=== PATIENT | female | born 1945 | race Caucasian/White ===

== ENCOUNTER 2018-05-15 19:05 | Inpatient (IN) | payer OTHER ==
[~2018-05-15] VITALS: Ht 170.2 cm; Wt 102.1 kg
[~2018-05-15 19:05] MED LIST: ALPR.25 PO; BENHYD1012; BENHYD1012 PO; DICL75ER; DILT240 PO; DULO60 PO; ESOM20 PO; ESTR2; ESTRTP PV; ESTRTP VAG; ETAN50I; ETAN50I SC; FLUO10 PO; FLUO20; GABA100 PO; HYDACE10A PO; HYDACE5; HYDACE5 PO; HYDSUL200; LANS30EC PO; LORA.5 PO; MELO7.5 PO; METO50ER PO; METTREX2.5; Mirapex0.25 MG PO; NITR100 PO; NORT25; ONDA4ODT MM; OXYB5ER PO; OXYC10ER PO; PILO5 PO; POTA10T; PRED5; PROM25 PO; RABE20; RHEUMATREX; TOLT4 PO; TRAZ150T57 PO; TRAZ50
[2018-05-15 19:45] LABS: BASOPHILS ABSOLUTE AUTO 0.04 K/mm3 (0.00-0.23); BASOPHILS PERCENT AUTO 1 % (0-2); EOSINOPHILS ABSOLUTE AUTO 0.44 K/mm3 (0.00-0.68); EOSINOPHILS PERCENT AUTO 7 % (0-6); Hematocrit 40.8 % (33.0-51.0); Hemoglobin 13.5 g/dL (11.5-16.0); IMMATURE GRAN ABSOLUTE AUTO 0.03 K/mm3 (0.00-0.10); IMMATURE GRAN PERCENT AUTO 0 % (0-1); LYMPHOCYTES ABSOLUTE AUTO 2.51 K/mm3 (0.84-5.20); LYMPHOCYTES PERCENT AUTO 37 % (21-46); MONOCYTES ABSOLUTE AUTO 0.91 K/mm3 (0.16-1.47); MONOCYTES PERCENT AUTO 13 % (4-13); Mean Corpuscular HGB 31.7 pg (26.0-34.0); Mean Corpuscular HGB Conc 33.1 g/dL (31.5-36.5); Mean Corpuscular Volume 96 fL (80-100); Mean Platelet Volume 10.5 fL (9.1-12.4); NEUTROPHILS ABSOLUTE AUTO 2.89 K/mm3 (1.96-9.15); NEUTROPHILS PERCENT AUTO 42 % (41-73); Platelet Count 212 K/mm3 (150-400); RDW Coefficient Variation 13.4 % (11.7-14.2); RDW Standard Deviation 47.4 fL (35.1-46.3); Red Blood Cell Count 4.26 M/mm3 (3.80-5.20); White Blood Cell Count 6.82 K/mm3 (4.00-11.30)
[2018-05-15 19:59] LABS: Alanine Aminotransfer (ALT/SGP 50 U/L (12-78); Albumin, Blood 3.4 g/dL (3.4-5.0); Albumin/Globulin Ratio 1.1 (0.8-1.8); Alk Phos 83 U/L (50-136); Anion Gap 8 mmol/L (6-16); Aspartate Aminotrans (AST/SGOT 37 U/L (12-37); Bilirubin, Total 0.3 mg/dL (0.1-1.0); Blood Urea Nitrogen 21 mg/dL (8-24); Bun/Creatinine Ratio 31.2 (12.0-20.0); CO2, Blood 31 mmol/L (21-32); Calcium, Blood 8.6 mg/dL (8.5-10.1); Chloride, Blood 103 mmol/L (98-108); Creatinine, Blood 0.67 mg/dL (0.40-1.00); Globulin, Blood 3.1 g/dL (2.2-4.0); Glomerular Filtration Rate >60 (60-); Glucose, Blood 113 mg/dL (70-99); Sodium, Blood 142 mmol/L (136-145); Total Protein, Blood 6.5 g/dL (6.4-8.2)
[2018-05-15 22:29] LABS: Source, Urine Catheter
[2018-05-15 22:38] LABS: Bilirubin, Urine Neg (Neg); Blood, Urine Neg (Neg); Glucose Qualitative, Urine Neg (Neg); Ketones, Urine Neg (Neg); Leukocyte Esterase, Urine Neg (Neg); Nitrite, Urine Neg (Neg); Protein, Urine Neg (Neg); Specific Gravity, Urine 1.015 (1.003-1.022); Urobilinogen, Urine NORM (Normal)
[2018-05-15 22:39] LABS: Appearance, Urine Clear (Clear); Color, Urine Yellow (P-Yellow)
[2018-05-16 05:59] LABS: Alanine Aminotransfer (ALT/SGP 45 U/L (12-78); Albumin, Blood 3.1 g/dL (3.4-5.0); Albumin/Globulin Ratio 1.1 (0.8-1.8); Alk Phos 74 U/L (50-136); Anion Gap 7 mmol/L (6-16); Aspartate Aminotrans (AST/SGOT 33 U/L (12-37); Bilirubin, Total 0.5 mg/dL (0.1-1.0); Blood Urea Nitrogen 17 mg/dL (8-24); Bun/Creatinine Ratio 30.5 (12.0-20.0); CO2, Blood 31 mmol/L (21-32); Calcium, Blood 8.3 mg/dL (8.5-10.1); Chloride, Blood 103 mmol/L (98-108); Creatinine, Blood 0.56 mg/dL (0.40-1.00); Globulin, Blood 2.9 g/dL (2.2-4.0); Glomerular Filtration Rate >60 (60-); Glucose, Blood 104 mg/dL (70-99); Potassium, Blood 3.8 mmol/L (3.5-5.5); Sodium, Blood 141 mmol/L (136-145)
[2018-05-17 03:55] LABS: BASOPHILS ABSOLUTE AUTO 0.01 K/mm3 (0.00-0.23); BASOPHILS PERCENT AUTO 0 % (0-2); EOSINOPHILS PERCENT AUTO 0 % (0-6); Hematocrit 30.1 % (33.0-51.0); Hemoglobin 9.9 g/dL (11.5-16.0); IMMATURE GRAN ABSOLUTE AUTO 0.03 K/mm3 (0.00-0.10); IMMATURE GRAN PERCENT AUTO 0 % (0-1); LYMPHOCYTES ABSOLUTE AUTO 0.83 K/mm3 (0.84-5.20); LYMPHOCYTES PERCENT AUTO 9 % (21-46); MONOCYTES ABSOLUTE AUTO 0.52 K/mm3 (0.16-1.47); MONOCYTES PERCENT AUTO 5 % (4-13); Mean Corpuscular HGB 32.2 pg (26.0-34.0); Mean Corpuscular HGB Conc 32.9 g/dL (31.5-36.5); Mean Corpuscular Volume 98 fL (80-100); Mean Platelet Volume 10.7 fL (9.1-12.4); NEUTROPHILS PERCENT AUTO 86 % (41-73); Platelet Count 166 K/mm3 (150-400); RDW Coefficient Variation 13.6 % (11.7-14.2); RDW Standard Deviation 48.6 fL (35.1-46.3); Red Blood Cell Count 3.07 M/mm3 (3.80-5.20); White Blood Cell Count 9.59 K/mm3 (4.00-11.30)
[2018-05-17 04:09] LABS: Anion Gap 6 mmol/L (6-16); Blood Urea Nitrogen 15 mg/dL (8-24); Bun/Creatinine Ratio 27.6 (12.0-20.0); CO2, Blood 29 mmol/L (21-32); Calcium, Blood 7.8 mg/dL (8.5-10.1); Chloride, Blood 106 mmol/L (98-108); Creatinine, Blood 0.54 mg/dL (0.40-1.00); Glomerular Filtration Rate >60 (60-); Glucose, Blood 159 mg/dL (70-99); Magnesium, Blood 1.9 mg/dL (1.6-2.4); Potassium, Blood 4.7 mmol/L (3.5-5.5); Sodium, Blood 141 mmol/L (136-145)
[2018-05-18 03:52] LABS: BASOPHILS PERCENT AUTO 0 % (0-2); EOSINOPHILS PERCENT AUTO 0 % (0-6); Hematocrit 28.6 % (33.0-51.0); Hemoglobin 9.1 g/dL (11.5-16.0); IMMATURE GRAN ABSOLUTE AUTO 0.07 K/mm3 (0.00-0.10); IMMATURE GRAN PERCENT AUTO 1 % (0-1); LYMPHOCYTES ABSOLUTE AUTO 1.32 K/mm3 (0.84-5.20); LYMPHOCYTES PERCENT AUTO 10 % (21-46); MONOCYTES ABSOLUTE AUTO 1.19 K/mm3 (0.16-1.47); MONOCYTES PERCENT AUTO 9 % (4-13); Mean Corpuscular HGB 31.3 pg (26.0-34.0); Mean Corpuscular HGB Conc 31.8 g/dL (31.5-36.5); Mean Corpuscular Volume 98 fL (80-100); NEUTROPHILS ABSOLUTE AUTO 10.86 K/mm3 (1.96-9.15); NEUTROPHILS PERCENT AUTO 81 % (41-73); Platelet Count 187 K/mm3 (150-400); RDW Coefficient Variation 13.5 % (11.7-14.2); RDW Standard Deviation 47.9 fL (35.1-46.3); Red Blood Cell Count 2.91 M/mm3 (3.80-5.20); White Blood Cell Count 13.44 K/mm3 (4.00-11.30)
== END 2018-05-18 18:28 | DRG 482 ==
LOC: ER 19:05 → SURS 22:06
PROVIDERS: Emergency Medicine; Family Medicine; Internal Medicine; Orthopaedic Surgery
PROC: 0QS604Z Reposition Right Upper Femur with Internal Fixation Device, Open Approach (ICD-10-PCS; principal; 2018-05-17)
DX: S72.141A Displaced intertrochanteric fracture of right femur, initial encounter for closed fracture (principal); Z87.440 Personal history of urinary (tract) infections; I10 Essential (primary) hypertension; M06.9 Rheumatoid arthritis, unspecified; W01.0XXA Fall on same level from slipping, tripping and stumbling without subsequent striking against object, initial encounter; E78.5 Hyperlipidemia, unspecified; F32.9 Major depressive disorder, single episode, unspecified; G89.29 Other chronic pain; K21.9 Gastro-esophageal reflux disease without esophagitis; M35.00 Sjogren syndrome, unspecified; S80.01XA Contusion of right knee, initial encounter; M81.0 Age-related osteoporosis without current pathological fracture; R32 Unspecified urinary incontinence; K58.9 Irritable bowel syndrome, unspecified
CPT/HCPCS: 36415; 51702; 71045; 72192; 73502; 73560-RT; 73700; 80048; 80053; 81003; 83735; 85025; 93005; 93010; 94762; 96374; 97110; 97161; 97166; 97530; 97535; 99285-25; C1713; C1769; G8978; G8979; G8987; G8988; J0690; J1100; J1650; J2001; J2250; J2405; J3010; J3480; J7030

== ENCOUNTER 2018-05-27 00:13 | Emergency (ER) | payer OTHER ==
[~2018-05-27] VITALS: Ht 170.2 cm; Wt 113.4 kg
[2018-05-27] MEDS ORDERED: DULO60 PO (00:28)
[2018-05-27] MEDS ORDERED: ETAN50I UD (00:28)
[2018-05-27] MEDS ORDERED: DILT120 PO (00:28)
[2018-05-27] MEDS ORDERED: MELO7.5 PO (00:29)
[2018-05-27] MEDS ORDERED: ESTR2 PO (00:29)
[2018-05-27] MEDS ORDERED: ENOX40I SC (00:29)
[2018-05-27] MEDS ORDERED: GAVILAX17 GM PO (00:29)
[2018-05-27] MEDS ORDERED: PRAM.5 PO (00:30)
[2018-05-27] MEDS ORDERED: Norco 10-325 T1 EACH PO (00:30)
[2018-05-27] MEDS ORDERED: NORT25 PO (00:31)
[2018-05-27] MEDS ORDERED: PILO5 PO (00:31)
[2018-05-27] MEDS ORDERED: LANS30EC PO (00:31)
[2018-05-27] MEDS ORDERED: METO50ER PO (00:32)
[2018-05-27] MEDS ORDERED: TRAZ150T57 PO (00:33)
[2018-05-27] MEDS ORDERED: TUBERSOL5 TUB UNIT ID (00:33)
== END 2018-05-27 01:22 | disposition home or self-care (01) ==
LOC: ER 00:13
DX: G89.29 Other chronic pain (principal); M25.551 Pain in right hip; Z91.048 Other nonmedicinal substance allergy status; Z88.8 Allergy status to other drugs, medicaments and biological substances; Z79.899 Other long term (current) drug therapy; I10 Essential (primary) hypertension
CPT/HCPCS: 99284

== ENCOUNTER → 2018-10-14 | Outpatient (CLI) | payer OTHER ==
[~2018-10-14] MED LIST changes: +DILT120 PO; +ENOX40I SC; +ESTR2 PO; +ETAN50I UD; +GAVILAX17 GM PO; +NORT25 PO; +Norco 10-325 T1 EACH PO; +PRAM.5 PO; +TUBERSOL5 TUB UNIT ID
== END | disposition home or self-care (01) ==
LOC: LAB EV 18:20 → LAB SHORT 18:20
DX: R30.0 Dysuria (principal)
CPT/HCPCS: 87077; 87086; 87186

== ENCOUNTER 2018-12-25 07:51 | Emergency (ER) | payer OTHER ==
[~2018-12-25] VITALS: Ht 170.2 cm; Wt 111.1 kg
[2018-12-25 08:17] LABS: BASOPHILS ABSOLUTE AUTO 0.03 K/mm3 (0.00-0.23); BASOPHILS PERCENT AUTO 1 % (0-2); EOSINOPHILS ABSOLUTE AUTO 0.18 K/mm3 (0.00-0.68); EOSINOPHILS PERCENT AUTO 3 % (0-6); Hematocrit 34.3 % (33.0-51.0); Hemoglobin 10.4 g/dL (11.5-16.0); IMMATURE GRAN ABSOLUTE AUTO 0.02 K/mm3 (0.00-0.10); IMMATURE GRAN PERCENT AUTO 0 % (0-1); LYMPHOCYTES ABSOLUTE AUTO 1.26 K/mm3 (0.84-5.20); LYMPHOCYTES PERCENT AUTO 21 % (21-46); MONOCYTES ABSOLUTE AUTO 0.81 K/mm3 (0.16-1.47); MONOCYTES PERCENT AUTO 14 % (4-13); Mean Corpuscular HGB 26.5 pg (26.0-34.0); Mean Corpuscular HGB Conc 30.3 g/dL (31.5-36.5); Mean Corpuscular Volume 88 fL (80-100); Mean Platelet Volume 9.8 fL (9.1-12.4); NEUTROPHILS ABSOLUTE AUTO 3.65 K/mm3 (1.96-9.15); NEUTROPHILS PERCENT AUTO 61 % (41-73); Platelet Count 297 K/mm3 (150-400); RDW Coefficient Variation 17.1 % (11.7-14.2); RDW Standard Deviation 53.7 fL (35.1-46.3); Red Blood Cell Count 3.92 M/mm3 (3.80-5.20); White Blood Cell Count 5.95 K/mm3 (4.00-11.30)
[2018-12-25] MEDS ORDERED: Lasix40 MG PO (08:35)
[2018-12-25 08:38] LABS: Alanine Aminotransfer (ALT/SGP 54 U/L (12-78); Albumin, Blood 3.6 g/dL (3.4-5.0); Albumin/Globulin Ratio 1.1 (0.8-1.8); Alk Phos 62 U/L (50-136); Anion Gap 8 mmol/L (6-16); Aspartate Aminotrans (AST/SGOT 69 U/L (12-37); Bilirubin, Total 0.5 mg/dL (0.1-1.0); Blood Urea Nitrogen 15 mg/dL (8-24); Bun/Creatinine Ratio 29.3 (12.0-20.0); CO2, Blood 32 mmol/L (21-32); Calcium, Blood 9.5 mg/dL (8.5-10.1); Chloride, Blood 100 mmol/L (98-108); Creatinine, Blood 0.51 mg/dL (0.40-1.00); Globulin, Blood 3.4 g/dL (2.2-4.0); Glomerular Filtration Rate >60 (60-); Glucose, Blood 117 mg/dL (70-99); Potassium, Blood 3.2 mmol/L (3.5-5.5); Sodium, Blood 140 mmol/L (136-145)
[2018-12-25] MEDS ORDERED: NORT10S PO (08:39)
[2018-12-25] MEDS ORDERED: Voltaren100 GM TOP (08:40)
[2018-12-25] MEDS ORDERED: DULO30 PO (08:40)
[2018-12-25] MEDS ORDERED: MELO7.5 PO (08:41)
[2018-12-25] MEDS ORDERED: BENHYD1012 (08:41)
[2018-12-25] MEDS ORDERED: NITR100CA PO ×2 (08:41→08:44)
[2018-12-25] MEDS ORDERED: METO50ER PO ×2 (08:42→08:46)
[2018-12-25] MEDS ORDERED: MICROZIDE12.5 M1 PO (08:42)
[2018-12-25] MEDS ORDERED: TRAZ150T57 (08:42)
[2018-12-25] MEDS ORDERED: Norco 10-325 T1 EACH PO (08:43)
[2018-12-25] MEDS ORDERED: ABAT250V (08:43)
[2018-12-25] MEDS ORDERED: PILO5 PO (08:43)
[2018-12-25] MEDS ORDERED: ETAN50I (08:43)
[2018-12-25] MEDS ORDERED: METTREX2.5 PO (08:44)
[2018-12-25] MEDS ORDERED: FOLI1 PO (08:44)
[2018-12-25] MEDS ORDERED: PRAM.125 PO (08:45)
[2018-12-25] MEDS ORDERED: PRAM.5 PO (08:45)
[2018-12-25] MEDS ORDERED: Bentyl10 MG (08:46)
[2018-12-25] MEDS ORDERED: LANS30EC PO (08:47)
[2018-12-25 09:16] LABS: Source, Urine Clean Catch
[2018-12-25 09:21] LABS: Bilirubin, Urine Neg (Neg); Blood, Urine Neg (Neg); Glucose Qualitative, Urine Neg (Neg); Ketones, Urine 1+ (Neg); Leukocyte Esterase, Urine 1+ (Neg); Nitrite, Urine Neg (Neg); Protein, Urine Neg (Neg); Specific Gravity, Urine 1.015 (1.003-1.022); Urobilinogen, Urine NORM (Normal)
[2018-12-25 09:28] LABS: Appearance, Urine Hazy (Clear); Color, Urine Yellow (P-Yellow)
[2018-12-25 09:29] LABS: Bacteria Rare /hpf; Red Blood Cells, Urine Not Seen /hpf (0-2); Squamous Epithelial Cells Few /hpf (Few)
[2018-12-25] MEDS ORDERED: Percocet 5-3251 EACH PO (09:37)
== END 2018-12-25 10:08 | disposition home or self-care (01) ==
LOC: ER 07:51
PROVIDERS: Emergency Medicine
DX: R10.12 Left upper quadrant pain (principal); I10 Essential (primary) hypertension; E78.5 Hyperlipidemia, unspecified; K21.9 Gastro-esophageal reflux disease without esophagitis
CPT/HCPCS: 36415; 74176; 80053; 81001; 83690; 85025; 87086; 96361; 96374; 96375; 99284-25; J1170; J2405; J7030

== ENCOUNTER → 2019-06-21 | Outpatient (CLI) | payer OTHER ==
[~2019-06-21] MED LIST changes: +ABAT250V; +Bentyl10 MG; +DULO30 PO; +FOLI1 PO; +Lasix40 MG PO; +METTREX2.5 PO; +MICROZIDE12.5 M1 PO; +NITR100CA PO; +NORT10S PO; +PRAM.125 PO; +Percocet 5-3251 EACH PO; +TRAZ150T57; +Voltaren100 GM TOP
== END | disposition home or self-care (01) ==
LOC: LAB SHORT 10:30 → LAB EV 10:30
DX: R30.0 Dysuria (principal)
CPT/HCPCS: 87077; 87086; 87186

== ENCOUNTER 2019-12-20 09:16 | Day surgery (SDC) | payer OTHER ==
[~2019-12-20] VITALS: Ht 172.7 cm; Wt 120.0 kg
--- NOTE | 2019-12-20 10:49 | NUR ---
12/20/[address] ALEJANDRO AND DR. OLMOS IN AGREEMENT THAT PATIENT NEEDS TO BE GENERAL ANESTHESIA FOR ALL FUTURE PROCEDURES.
--- NOTE | 2019-12-20 11:30 | NUR ---
12/20/[address] COTTO AND DR. OLMOS TO ROOM TO SPEAK WITH PATIENT AND SPOUSE, DON, REGARDING PROCEDURE, NEED FOR GENERAL ANESTHESIA FOR ALL FUTURE PROCEDURES, AND COLONOSCOPY FINDINGS. LARGE RECTAL POLYP FOUND, PT TO BE REFERRED TO [facility] FOR SURGICAL REMOVAL OF POLYP & PARTIAL RECTUM.
== END 2019-12-20 12:15 | disposition home or self-care (01) ==
LOC: ORSCSDS 09:16
PROVIDERS: Internal Medicine Gastroenterology
PROC: 0DBP8ZX Excision of Rectum, Via Natural or Artificial Opening Endoscopic, Diagnostic (ICD-10-PCS; principal; 2019-12-20 10:45)
DX: R10.32 Left lower quadrant pain (principal); D12.8 Benign neoplasm of rectum; K57.30 Diverticulosis of large intestine without perforation or abscess without bleeding; K64.8 Other hemorrhoids; K64.4 Residual hemorrhoidal skin tags; I10 Essential (primary) hypertension; K21.9 Gastro-esophageal reflux disease without esophagitis; E78.5 Hyperlipidemia, unspecified; E66.01 Morbid (severe) obesity due to excess calories; Z68.41 Body mass index [BMI] 40.0-44.9, adult; Z79.899 Other long term (current) drug therapy
CPT/HCPCS: 88305; J2250; J2704; J7120

== ENCOUNTER 2021-03-15 03:10 | Emergency (ER) | payer OTHER ==
[~2021-03-15] VITALS: Ht 170.2 cm; Wt 127.0 kg
[2021-03-15] MEDS ORDERED: Bentyl10 MG PO (03:38)
[2021-03-15] MEDS ORDERED: CARTIA XT PO (03:38)
[2021-03-15] MEDS ORDERED: BENAZEPRIL HCL40 M1 PO (03:38)
[2021-03-15] MEDS ORDERED: ABAT250V (03:39)
[2021-03-15] MEDS ORDERED: ENBREL25 MG PO (03:39)
[2021-03-15] MEDS ORDERED: Norco 5-325 Ta1 EACH PO (03:40)
== END 2021-03-15 03:57 | disposition home or self-care (01) ==
LOC: ER 03:10
DX: S42.291A Other displaced fracture of upper end of right humerus, initial encounter for closed fracture (principal); I10 Essential (primary) hypertension; Z79.899 Other long term (current) drug therapy; Z91.09 Other allergy status, other than to drugs and biological substances; Z88.8 Allergy status to other drugs, medicaments and biological substances; W01.0XXA Fall on same level from slipping, tripping and stumbling without subsequent striking against object, initial encounter
CPT/HCPCS: 73030; 73070; 99283-25; A9270

== ENCOUNTER → 2021-05-11 | Outpatient (CLI) | payer OTHER ==
[~2021-05-11] MED LIST changes: +ARTHRITIS PAIN50 GM TOP; +BACTRIM 400-801 EACH PO; +BENAZEPRIL HCL40 M1 PO; +BUMETANIDE2 M4 PO; +Bentyl10 MG PO; +CEFTRIAXONE2 G1 IV; +DILTIAZEM 24HR120 M4 PO; +DILTIAZEM 24HR240 M3 PO; +DULOXETINE HCL60 M1 PO; +ENBREL SUR50 MG/1 M1 SC; +ESTRADIOL0.5 MG PO; +HYDROCODONE-AC1 EAC7 PO; +LANSOPRAZOLE30 MG PO; +MACRODANTIN PO; +METHOTREXATE PO; +MOBIC15 MG PO; +NORT10 PO; +Norco 5-325 Ta1 EACH PO; +POTCHL20ER PO; +PRAMIPEXOLE D0.25 M1 PO; +RABE20 PO; +Toprol Xl200 MG PO; +Vitamin D2000 UNIT PO; +ZOLEDRONIC ACID4 M1 IV
[2021-05-11 14:39] LABS: BASOPHILS ABSOLUTE AUTO 0.02 K/mm3 (0.00-0.23); BASOPHILS PERCENT AUTO 0 % (0-2); EOSINOPHILS ABSOLUTE AUTO 0.09 K/mm3 (0.00-0.68); EOSINOPHILS PERCENT AUTO 1 % (0-6); Hematocrit 36.2 % (33.0-51.0); Hemoglobin 11.7 g/dL (11.5-16.0); IMMATURE GRAN ABSOLUTE AUTO 0.06 K/mm3 (0.00-0.10); IMMATURE GRAN PERCENT AUTO 1 % (0-1); LYMPHOCYTES PERCENT AUTO 12 % (21-46); MONOCYTES ABSOLUTE AUTO 1.29 K/mm3 (0.16-1.47); MONOCYTES PERCENT AUTO 14 % (4-13); Mean Corpuscular HGB 33.6 pg (26.0-34.0); Mean Corpuscular HGB Conc 32.3 g/dL (31.5-36.5); Mean Corpuscular Volume 104 fL (80-100); Mean Platelet Volume 9.9 fL (9.1-12.4); NEUTROPHILS ABSOLUTE AUTO 6.96 K/mm3 (1.96-9.15); NEUTROPHILS PERCENT AUTO 73 % (41-73); Platelet Count 233 K/mm3 (150-400); RDW Coefficient Variation 15.7 % (11.7-14.2); RDW Standard Deviation 58.7 fL (35.1-46.3); Red Blood Cell Count 3.48 M/mm3 (3.80-5.20); White Blood Cell Count 9.52 K/mm3 (4.00-11.30)
[2021-05-11 14:42] LABS: Anion Gap 2 mmol/L (6-16); Blood Urea Nitrogen 17 mg/dL (8-24); Bun/Creatinine Ratio 22.4 (12.0-20.0); CO2, Blood 33 mmol/L (21-32); Calcium, Blood 9.1 mg/dL (8.5-10.1); Chloride, Blood 102 mmol/L (98-108); Creatinine, Blood 0.76 mg/dL (0.40-1.00); Glomerular Filtration Rate >60 (60-); Glucose, Blood 113 mg/dL (70-99); Potassium, Blood 4.7 mmol/L (3.5-5.5); Sodium, Blood 137 mmol/L (136-145)
== END ==
LOC: LAB SHORT 14:30 → PLD 14:30
PROVIDERS: Physician Assistant Medical
DX: M79.605 Pain in left leg (principal); Z91.048 Other nonmedicinal substance allergy status
CPT/HCPCS: 80048; 83880; 85025

== ENCOUNTER → 2021-05-30 | Outpatient (CLI) | payer OTHER ==
[2021-05-30 16:19] LABS: Albumin, Blood 2.7 g/dL (3.4-5.0); Anion Gap 2 mmol/L (6-16); Blood Urea Nitrogen 20 mg/dL (8-24); Bun/Creatinine Ratio 25.6 (12.0-20.0); CO2, Blood 35 mmol/L (21-32); Calcium, Blood 8.6 mg/dL (8.5-10.1); Chloride, Blood 104 mmol/L (98-108); Creatinine, Blood 0.78 mg/dL (0.40-1.00); Glomerular Filtration Rate >60 (60-); Glucose, Blood 113 mg/dL (70-99); Phosphorus, Blood 3.3 mg/dL (2.5-4.9); Potassium, Blood 4.5 mmol/L (3.5-5.5); Sodium, Blood 141 mmol/L (136-145)
== END | disposition home or self-care (01) ==
LOC: LAB 15:45 → LAB SHORT 15:45
PROVIDERS: Physician Assistant Surgical
DX: R60.0 Localized edema (principal)
CPT/HCPCS: 80069

== ENCOUNTER 2021-06-10 03:09 | Day surgery (SDC) | payer OTHER ==
[~2021-06-10 03:09] MED LIST changes: -ARTHRITIS PAIN50 GM TOP; -BACTRIM 400-801 EACH PO; -BENAZEPRIL HCL40 M1 PO; -BUMETANIDE2 M4 PO; -Bentyl10 MG PO; -CEFTRIAXONE2 G1 IV; -DILTIAZEM 24HR120 M4 PO; -DILTIAZEM 24HR240 M3 PO; -DULOXETINE HCL60 M1 PO; -ENBREL SUR50 MG/1 M1 SC; -ESTRADIOL0.5 MG PO; -HYDROCODONE-AC1 EAC7 PO; -LANSOPRAZOLE30 MG PO; -MACRODANTIN PO; -METHOTREXATE PO; -MOBIC15 MG PO; -NORT10 PO; -POTCHL20ER PO; -PRAMIPEXOLE D0.25 M1 PO; -RABE20 PO; -Toprol Xl200 MG PO; -Vitamin D2000 UNIT PO; -ZOLEDRONIC ACID4 M1 IV
== END 2021-06-10 23:19 | disposition home or self-care (01) ==
LOC: WOUND 03:09
DX: L97.822 Non-pressure chronic ulcer of other part of left lower leg with fat layer exposed (principal); L97.819 Non-pressure chronic ulcer of other part of right lower leg with unspecified severity; S91.105A Unspecified open wound of left lesser toe(s) without damage to nail, initial encounter; I10 Essential (primary) hypertension; X58.XXXA Exposure to other specified factors, initial encounter
CPT/HCPCS: 10140; G0463

== ENCOUNTER 2021-06-11 01:49 | Day surgery (SDC) | payer OTHER | END 2021-06-11 23:05 | disposition home or self-care (01) | LOC: WOUND 01:49 | DX: L97.215 Non-pressure chronic ulcer of right calf with muscle involvement without evidence of necrosis (principal) | CPT/HCPCS: G0463 ==

== ENCOUNTER 2021-06-12 01:07 | Day surgery (SDC) | payer OTHER | END 2021-06-12 23:03 | disposition home or self-care (01) | LOC: WOUND 01:07 | DX: L97.215 Non-pressure chronic ulcer of right calf with muscle involvement without evidence of necrosis (principal) | CPT/HCPCS: A9270; G0463 ==

== ENCOUNTER 2021-06-13 03:12 | Day surgery (SDC) | payer OTHER ==
[2021-06-14] MEDS ORDERED: DILTIAZEM 24HR240 M3 PO (11:56)
[2021-06-14] MEDS ORDERED: CEFTRIAXONE2 G1 IV (11:59)
== END 2021-06-13 23:08 | disposition home or self-care (01) ==
LOC: WOUND 03:12
DX: L97.915 Non-pressure chronic ulcer of unspecified part of right lower leg with muscle involvement without evidence of necrosis (principal); L03.115 Cellulitis of right lower limb; I87.2 Venous insufficiency (chronic) (peripheral); S81.801D Unspecified open wound, right lower leg, subsequent encounter; S80.11XD Contusion of right lower leg, subsequent encounter; X58.XXXD Exposure to other specified factors, subsequent encounter; I73.9 Peripheral vascular disease, unspecified
CPT/HCPCS: A9270; J0696

== ENCOUNTER 2021-06-14 03:04 | Day surgery (SDC) | payer OTHER ==
[2021-06-14] MEDS ORDERED: DILTIAZEM 24HR240 M3 PO (11:56)
[2021-06-14] MEDS ORDERED: CEFTRIAXONE2 G1 IV (11:59)
== END 2021-06-14 23:31 | disposition home or self-care (01) ==
LOC: WOUND 03:04
DX: L97.815 Non-pressure chronic ulcer of other part of right lower leg with muscle involvement without evidence of necrosis (principal); L97.822 Non-pressure chronic ulcer of other part of left lower leg with fat layer exposed; L03.115 Cellulitis of right lower limb; I87.2 Venous insufficiency (chronic) (peripheral); S80.11XD Contusion of right lower leg, subsequent encounter; S81.801D Unspecified open wound, right lower leg, subsequent encounter; X58.XXXD Exposure to other specified factors, subsequent encounter; I73.9 Peripheral vascular disease, unspecified; Z88.8 Allergy status to other drugs, medicaments and biological substances
CPT/HCPCS: A9270; G0463; J0696

== ENCOUNTER 2021-06-14 09:37 | Day surgery (SDC) | payer OTHER ==
[2021-06-14] MEDS ORDERED: DILTIAZEM 24HR240 M3 PO (11:56)
[2021-06-14] MEDS ORDERED: CEFTRIAXONE2 G1 IV (11:59)
== END 2021-06-14 12:05 | disposition home or self-care (01) ==
LOC: ATC 09:37
DX: L03.115 Cellulitis of right lower limb (principal); L97.815 Non-pressure chronic ulcer of other part of right lower leg with muscle involvement without evidence of necrosis; I87.2 Venous insufficiency (chronic) (peripheral); S80.11XD Contusion of right lower leg, subsequent encounter; S81.801D Unspecified open wound, right lower leg, subsequent encounter; X58.XXXD Exposure to other specified factors, subsequent encounter; I73.9 Peripheral vascular disease, unspecified
CPT/HCPCS: 96365; J0696

== ENCOUNTER 2021-06-15 01:32 | Day surgery (SDC) | payer OTHER ==
[~2021-06-15 01:32] MED LIST changes: +CEFTRIAXONE2 G1 IV; +DILTIAZEM 24HR240 M3 PO
== END 2021-06-15 10:01 | disposition home or self-care (01) ==
LOC: ATC 01:32
DX: L03.115 Cellulitis of right lower limb (principal); M06.9 Rheumatoid arthritis, unspecified; I73.9 Peripheral vascular disease, unspecified
CPT/HCPCS: 96365; J0696

== ENCOUNTER 2021-06-16 01:43 | Day surgery (SDC) | payer OTHER | END 2021-06-16 10:01 | disposition home or self-care (01) | LOC: ATC 01:43 | DX: L03.115 Cellulitis of right lower limb (principal); I87.2 Venous insufficiency (chronic) (peripheral); S81.801D Unspecified open wound, right lower leg, subsequent encounter; W10.1XXD Fall (on)(from) sidewalk curb, subsequent encounter; I73.9 Peripheral vascular disease, unspecified; I10 Essential (primary) hypertension | CPT/HCPCS: 96365; 99212; J0696 ==

== ENCOUNTER 2021-06-18 02:33 | Day surgery (SDC) | payer OTHER ==
[2021-06-18] MEDS ORDERED: PRAMIPEXOLE D0.25 M1 PO (21:06)
[2021-06-18] MEDS ORDERED: METHOTREXATE PO (21:08)
[2021-06-18] MEDS ORDERED: BUMETANIDE2 M4 PO (21:08)
[2021-06-18] MEDS ORDERED: PILO5 PO (21:10)
[2021-06-18] MEDS ORDERED: HYDROCODONE-AC1 EAC7 PO (21:11)
[2021-06-18] MEDS ORDERED: DILTIAZEM 24HR120 M4 PO (21:13)
[2021-06-18] MEDS ORDERED: TRAZ150T57 PO (21:14)
[2021-06-18] MEDS ORDERED: DULOXETINE HCL60 M1 PO (21:15)
[2021-06-18] MEDS ORDERED: LANSOPRAZOLE30 MG PO (21:16)
[2021-06-18] MEDS ORDERED: BENAZEPRIL HCL40 M1 PO (21:17)
[2021-06-18] MEDS ORDERED: POTCHL20ER PO (21:17)
[2021-06-18] MEDS ORDERED: Toprol Xl200 MG PO (21:17)
[2021-06-18] MEDS ORDERED: NORT10 PO (21:19)
[2021-06-18] MEDS ORDERED: MACRODANTIN PO (21:21)
[2021-06-18] MEDS ORDERED: FOLI1 PO (21:27)
[2021-06-18] MEDS ORDERED: ENBREL SUR50 MG/1 M1 SC (21:30)
[2021-06-18] MEDS ORDERED: Vitamin D2000 UNIT PO (21:32)
[2021-06-18] MEDS ORDERED: MOBIC15 MG PO (21:41)
[2021-06-18] MEDS ORDERED: Bentyl10 MG PO (21:41)
[2021-06-18] MEDS ORDERED: ARTHRITIS PAIN50 GM TOP (21:42)
[2021-06-18] MEDS ORDERED: ZOLEDRONIC ACID4 M1 IV (21:47)
[2021-06-18] MEDS ORDERED: RABE20 PO (23:34)
[2021-06-18] MEDS ORDERED: ALPR.25 PO (23:34)
[2021-06-18] MEDS ORDERED: ESTRADIOL0.5 MG PO (23:35)
[2021-06-18] MEDS ORDERED: DULO60 PO (23:36)
[2021-06-18] MEDS ORDERED: BACTRIM 400-801 EACH PO (23:38)
== END 2021-06-18 11:24 | disposition home or self-care (01) ==
LOC: ATC 02:33
DX: L03.115 Cellulitis of right lower limb (principal); I87.2 Venous insufficiency (chronic) (peripheral); I73.9 Peripheral vascular disease, unspecified; S81.801A Unspecified open wound, right lower leg, initial encounter; S91.105A Unspecified open wound of left lesser toe(s) without damage to nail, initial encounter; S81.802A Unspecified open wound, left lower leg, initial encounter; X58.XXXA Exposure to other specified factors, initial encounter
CPT/HCPCS: 96365; J0696

== ENCOUNTER 2021-06-18 08:00 | Day surgery (SDC) | payer OTHER ==
[2021-06-18] MEDS ORDERED: PRAMIPEXOLE D0.25 M1 PO (21:06)
[2021-06-18] MEDS ORDERED: METHOTREXATE PO (21:08)
[2021-06-18] MEDS ORDERED: BUMETANIDE2 M4 PO (21:08)
[2021-06-18] MEDS ORDERED: PILO5 PO (21:10)
[2021-06-18] MEDS ORDERED: HYDROCODONE-AC1 EAC7 PO (21:11)
[2021-06-18] MEDS ORDERED: DILTIAZEM 24HR120 M4 PO (21:13)
[2021-06-18] MEDS ORDERED: TRAZ150T57 PO (21:14)
[2021-06-18] MEDS ORDERED: DULOXETINE HCL60 M1 PO (21:15)
[2021-06-18] MEDS ORDERED: LANSOPRAZOLE30 MG PO (21:16)
[2021-06-18] MEDS ORDERED: BENAZEPRIL HCL40 M1 PO (21:17)
[2021-06-18] MEDS ORDERED: Toprol Xl200 MG PO (21:17)
[2021-06-18] MEDS ORDERED: POTCHL20ER PO (21:17)
[2021-06-18] MEDS ORDERED: NORT10 PO (21:19)
[2021-06-18] MEDS ORDERED: MACRODANTIN PO (21:21)
[2021-06-18] MEDS ORDERED: FOLI1 PO (21:27)
[2021-06-18] MEDS ORDERED: ENBREL SUR50 MG/1 M1 SC (21:30)
[2021-06-18] MEDS ORDERED: Vitamin D2000 UNIT PO (21:32)
[2021-06-18] MEDS ORDERED: Bentyl10 MG PO (21:41)
[2021-06-18] MEDS ORDERED: MOBIC15 MG PO (21:41)
[2021-06-18] MEDS ORDERED: ARTHRITIS PAIN50 GM TOP (21:42)
[2021-06-18] MEDS ORDERED: ZOLEDRONIC ACID4 M1 IV (21:47)
[2021-06-18] MEDS ORDERED: RABE20 PO (23:34)
[2021-06-18] MEDS ORDERED: ALPR.25 PO (23:34)
[2021-06-18] MEDS ORDERED: ESTRADIOL0.5 MG PO (23:35)
[2021-06-18] MEDS ORDERED: DULO60 PO (23:36)
[2021-06-18] MEDS ORDERED: BACTRIM 400-801 EACH PO (23:38)
== END 2021-06-18 23:59 | disposition home or self-care (01) ==
LOC: WOUND
DX: L97.815 Non-pressure chronic ulcer of other part of right lower leg with muscle involvement without evidence of necrosis (principal); L03.115 Cellulitis of right lower limb; L02.415 Cutaneous abscess of right lower limb; L97.822 Non-pressure chronic ulcer of other part of left lower leg with fat layer exposed; S80.11XD Contusion of right lower leg, subsequent encounter; S91.105D Unspecified open wound of left lesser toe(s) without damage to nail, subsequent encounter; I87.2 Venous insufficiency (chronic) (peripheral); M06.9 Rheumatoid arthritis, unspecified
CPT/HCPCS: A9270

== ENCOUNTER 2021-06-18 16:30 | Inpatient (IN) | payer OTHER ==
[~2021-06-18] VITALS: Ht 172.7 cm; Wt 131.6 kg
[2021-06-18 18:43] LABS: BASOPHILS ABSOLUTE AUTO 0.04 K/mm3 (0.00-0.23); BASOPHILS PERCENT AUTO 0 % (0-2); EOSINOPHILS ABSOLUTE AUTO 0.32 K/mm3 (0.00-0.68); EOSINOPHILS PERCENT AUTO 3 % (0-6); Hematocrit 35.3 % (33.0-51.0); Hemoglobin 11.3 g/dL (11.5-16.0); IMMATURE GRAN ABSOLUTE AUTO 0.11 K/mm3 (0.00-0.10); IMMATURE GRAN PERCENT AUTO 1 % (0-1); LYMPHOCYTES ABSOLUTE AUTO 1.51 K/mm3 (0.84-5.20); LYMPHOCYTES PERCENT AUTO 15 % (21-46); MONOCYTES ABSOLUTE AUTO 1.22 K/mm3 (0.16-1.47); MONOCYTES PERCENT AUTO 12 % (4-13); Mean Corpuscular HGB 32.5 pg (26.0-34.0); Mean Corpuscular Volume 101 fL (80-100); Mean Platelet Volume 10.1 fL (9.1-12.4); NEUTROPHILS ABSOLUTE AUTO 6.91 K/mm3 (1.96-9.15); NEUTROPHILS PERCENT AUTO 68 % (41-73); Platelet Count 308 K/mm3 (150-400); RDW Standard Deviation 56.1 fL (35.1-46.3); Red Blood Cell Count 3.48 M/mm3 (3.80-5.20); White Blood Cell Count 10.11 K/mm3 (4.00-11.30)
[2021-06-18 18:58] LABS: International Normalized Ratio 0.94; Prothrombin Time Results 10.2 Sec (9.7-11.5)
[2021-06-18 19:02] LABS: Alanine Aminotransfer (ALT/SGP 20 U/L (12-78); Albumin, Blood 2.6 g/dL (3.4-5.0); Albumin/Globulin Ratio 0.6 (0.8-1.8); Alk Phos 91 U/L (50-136); Anion Gap 1 mmol/L (6-16); Aspartate Aminotrans (AST/SGOT 20 U/L (12-37); Bilirubin, Total 0.2 mg/dL (0.1-1.0); Blood Urea Nitrogen 24 mg/dL (8-24); Bun/Creatinine Ratio 31.2 (12.0-20.0); CO2, Blood 30 mmol/L (21-32); Calcium, Blood 8.8 mg/dL (8.5-10.1); Chloride, Blood 103 mmol/L (98-108); Creatinine, Blood 0.77 mg/dL (0.40-1.00); Globulin, Blood 4.4 g/dL (2.2-4.0); Glomerular Filtration Rate >60 (60-); Glucose, Blood 129 mg/dL (70-99); Potassium, Blood 4.8 mmol/L (3.5-5.5); Sodium, Blood 134 mmol/L (136-145)
[2021-06-18 20:16] LABS: CPK Creatine Kinase 27 U/L (26-193)
[2021-06-18] MEDS ORDERED: PRAMIPEXOLE D0.25 M1 PO (21:06)
[2021-06-18] MEDS ORDERED: BUMETANIDE2 M4 PO (21:08)
[2021-06-18] MEDS ORDERED: METHOTREXATE PO (21:08)
[2021-06-18] MEDS ORDERED: PILO5 PO (21:10)
[2021-06-18] MEDS ORDERED: HYDROCODONE-AC1 EAC7 PO (21:11)
[2021-06-18] MEDS ORDERED: DILTIAZEM 24HR120 M4 PO (21:13)
[2021-06-18] MEDS ORDERED: TRAZ150T57 PO (21:14)
[2021-06-18] MEDS ORDERED: DULOXETINE HCL60 M1 PO (21:15)
[2021-06-18] MEDS ORDERED: LANSOPRAZOLE30 MG PO (21:16)
[2021-06-18] MEDS ORDERED: BENAZEPRIL HCL40 M1 PO (21:17)
[2021-06-18] MEDS ORDERED: POTCHL20ER PO (21:17)
[2021-06-18] MEDS ORDERED: Toprol Xl200 MG PO (21:17)
[2021-06-18] MEDS ORDERED: NORT10 PO (21:19)
[2021-06-18] MEDS ORDERED: MACRODANTIN PO (21:21)
[2021-06-18] MEDS ORDERED: FOLI1 PO (21:27)
[2021-06-18] MEDS ORDERED: ENBREL SUR50 MG/1 M1 SC (21:30)
[2021-06-18] MEDS ORDERED: Vitamin D2000 UNIT PO (21:32)
[2021-06-18] MEDS ORDERED: MOBIC15 MG PO (21:41)
[2021-06-18] MEDS ORDERED: Bentyl10 MG PO (21:41)
[2021-06-18] MEDS ORDERED: ARTHRITIS PAIN50 GM TOP (21:42)
[2021-06-18] MEDS ORDERED: ZOLEDRONIC ACID4 M1 IV (21:47)
[2021-06-18] MEDS ORDERED: RABE20 PO (23:34)
[2021-06-18] MEDS ORDERED: ALPR.25 PO (23:34)
[2021-06-18] MEDS ORDERED: ESTRADIOL0.5 MG PO (23:35)
[2021-06-18] MEDS ORDERED: DULO60 PO (23:36)
[2021-06-18] MEDS ORDERED: BACTRIM 400-801 EACH PO (23:38)
[2021-06-19 00:34] LABS: SARS-Cov-2 (COVID-19) PCR, MMC NEGATIVE (NEGATIVE)
[2021-06-19 04:49] LABS: BASOPHILS ABSOLUTE AUTO 0.04 K/mm3 (0.00-0.23); BASOPHILS PERCENT AUTO 0 % (0-2); EOSINOPHILS ABSOLUTE AUTO 0.26 K/mm3 (0.00-0.68); EOSINOPHILS PERCENT AUTO 3 % (0-6); Hematocrit 33.4 % (33.0-51.0); Hemoglobin 10.7 g/dL (11.5-16.0); IMMATURE GRAN ABSOLUTE AUTO 0.07 K/mm3 (0.00-0.10); IMMATURE GRAN PERCENT AUTO 1 % (0-1); LYMPHOCYTES ABSOLUTE AUTO 1.12 K/mm3 (0.84-5.20); LYMPHOCYTES PERCENT AUTO 12 % (21-46); MONOCYTES ABSOLUTE AUTO 1.04 K/mm3 (0.16-1.47); MONOCYTES PERCENT AUTO 11 % (4-13); Mean Corpuscular HGB 32.4 pg (26.0-34.0); Mean Corpuscular Volume 101 fL (80-100); Mean Platelet Volume 9.6 fL (9.1-12.4); NEUTROPHILS ABSOLUTE AUTO 6.69 K/mm3 (1.96-9.15); NEUTROPHILS PERCENT AUTO 73 % (41-73); Platelet Count 325 K/mm3 (150-400); RDW Coefficient Variation 14.7 % (11.7-14.2); White Blood Cell Count 9.22 K/mm3 (4.00-11.30)
[2021-06-19 05:27] LABS: Alanine Aminotransfer (ALT/SGP 18 U/L (12-78); Albumin, Blood 2.5 g/dL (3.4-5.0); Albumin/Globulin Ratio 0.7 (0.8-1.8); Alk Phos 87 U/L (50-136); Anion Gap 3 mmol/L (6-16); Aspartate Aminotrans (AST/SGOT 11 U/L (12-37); Bilirubin, Total 0.3 mg/dL (0.1-1.0); Blood Urea Nitrogen 18 mg/dL (8-24); Bun/Creatinine Ratio 27.8 (12.0-20.0); CO2, Blood 30 mmol/L (21-32); Calcium, Blood 9.1 mg/dL (8.5-10.1); Chloride, Blood 104 mmol/L (98-108); Creatinine, Blood 0.65 mg/dL (0.40-1.00); Globulin, Blood 3.8 g/dL (2.2-4.0); Glomerular Filtration Rate >60 (60-); Glucose, Blood 113 mg/dL (70-99); Potassium, Blood 4.2 mmol/L (3.5-5.5); Sodium, Blood 137 mmol/L (136-145); Total Protein, Blood 6.3 g/dL (6.4-8.2)
--- NOTE | 2021-06-19 07:12 | NUR ---
SHIFT SUMMARY PT WAS A NEW ADMIT DURING THE NIGHT, ARRIVING ON THE FLOOR AT 2340. SHE WAS ADMITTED FOR RLE ABSCESS. A&O X 4, 1PA BETWEEN BED AND BSC. PT WAS MEDICATED FOR BLE PAIN WITH ULTRAM AND MIRAPEX, AND THIS AM FOR BACK PAIN WITH PRN TYLENOL. OTHERWISE NPO SINCE MIDNIGHT IN PREP FOR SURGICAL I&D TODAY. BP WAS ELEVATED IN THE 160S SYSTOLIC THIS AM. VITAL SIGNS OTHERWISE STABLE. NO ACUTE CHANGES IN PT CONDITION NOTED DURING THE NIGHT. WILL CONTINUE TO MONITOR AND TREAT PER EMAR UNTIL HAND OFF TO DAY SHIFT RN.
--- NOTE | 2021-06-19 14:22 | NUR ---
pt taken to pre op a/ox4 for I&D, po pain med given with a sip of water
--- NOTE | 2021-06-19 14:46 | NUR ---
History, Chart, Medications and Allergies reviewed before start of procedure.Lungs clear T/O to Auscultation. Patient confirms NPO status and agrees with scheduled surgery. PT HAS LIZABETH WRAPS ON BILAT LEGS/ NO PAS. PT HAS ANXIETY, PRACTICED RELAXATION BREATHING WITHOUT GOOD RESULTS, DR BARR ORDERED VERSED. EMOTIONAL SUPPOT PROVIDED. CALLED PER PT REQUEST TO LET KNOW WENT BACK TO OR.
--- NOTE | 2021-06-19 17:25 | NUR ---
PT IS A/OX4, PLEASANT AND COOPERATIVE, THE PT IS UP IND TO THE BSC. THE PT HAS CHRONIC BACK PAIN AND RESTLESS LES. AND HAS BEEN UNCOMFORTABLE AND ANXIOUS T/O THE DAY, THE PT WAS MEDICATED FOR PAIN AND RESTLESS LEGS TODAY. THE PT APPEARS TO BE BREATHING EASILY ON RA AT THIS TIME. THE PT WAS TAKEN TO THE OR TODAY AND AN I&D WAS DONE ON HER RIGHT KNEE. THE PT SEEMS TO HAVE TOLERATED IT WELL. PT IS RESTING IN BED APPEARS TO BE COMFORTABLE. LE'S ELEVATED CALL LIGHT IN REACH. WILL CONTINUE TO MONITOR AND ASSESS FOR CHANGES
--- NOTE | 2021-06-19 18:10 | NUR ---
PT TRANSFERED TO ROOM 410 MEDICAL OVER FLOW REPORT GIVEN TO YANDEL CEBALLOS FOR TRANSFER OF CARE
--- NOTE | 2021-06-19 23:48 | NUR ---
2044 MEDICATIONS PAMELOR 30MG AND SALAGEN 5MG GIVEN PO AT THE SAME TIME SC HEPARIN. OBTAINED FROM PHARMACY DELIVERY BOX. ALL SCANING PROCESSES PREFOMED, IT DID NOT DOCUMENT IN EMAR.
--- NOTE | 2021-06-20 05:49 | NUR ---
PT. ALERT AND ORIENTED, GENERALIZED EDEMA REMAINS WITH SCATTERED BRUISES OVER BODY. LIZABETH WRAPS REMAIN IN PLACE WITH VERY SLITE OOZING FROM RIGHT LEG. UP TO USE TOILET NIKOS FAIRLY WELL. SEE INIAL ASSESSMENT FOR FUTHER DETAILS.
--- NOTE | 2021-06-20 07:43 | NUR ---
DISCUSSED PATIENT ABILITY TO AMBULATE WITH WALKER AND ASSIST. ALSO ADVISED PATIENT TO BE UP IN CHAIR FOR BREAKFAST TO INCREASE STRENGTH, MOBILITY AND RESPIRATORY FUNCTION. PATIENT AGREED. LIZABETH DRESSINGS TO BILATERAL LE IN PLACE WITH SEROSANGUINOUS DRAINAGE NOTED. PAIN LEVEL 6/10, WILL MEDICATE IF ABLE.
[2021-06-20 09:24] LABS: Vancomycin, Trough 20.2 ug/mL (5.0-10.0)
--- NOTE | 2021-06-20 14:18 | NUR ---
ADMIT: 06/18/21 DISCHARGE: DX: Abscess of right leg CC: kwilcox INES CALL: RESIDENCE: home with spouse CAREGIVER: Maximo, Spouse / Partner, Gabby Miranda, Child, DX: CAD, chronic pain, cellulitis, HTN, GERD, see list DME: unna boots, compression stockings CCM: referral - 2018 HOME HEALTH: [facility] [place]- 2018 SUMMARY: 06/20/21- per chart review, pt had temp today of 101.7 and had I & D on leg done yesterday. Pt was started on antibiotics. Discharge plan is for pt to have home health services at discharge. -jamilah
--- NOTE | 2021-06-20 17:46 | NUR ---
PATIENT UP FOR MEALS AT BEDSIDE. PATIENT LE ELEVATED ON PILLOW WHEN IN BED. PT A0X3, MEDICATED FOR PAIN X3 TODAY. LIZABETH WRAPS BILATERAL LE WITH SLIGHT AMOUNT SEROSANGUINOUS DRAINAGE. UP TO BEDSIDE COMMODE X4 THIS SHIFT. PATIENT HOPING TO BE D/C'D TOMORROW, HOWEVER STILL ON IV ABX VANCOMYCIN. AM TROUGH ELEVATED 20.2, PHARMACY CHANGED ORDER TO REFLECT DECREASE IN DOSE FROM 1,750MG TO 1,500MG.
--- NOTE | 2021-06-20 20:13 | NUR ---
GOT PATIENT UP TO BESIDE COMMODE, PATIENT URINATED APPROXIMATELY 250ML LIGHT YELLOW URINE. PATIENT ABLE TO TRANSFER SELF TO BED AND WISHES TO SIT ON SIDE OF BED FOR NOW. PATIENT INSTRUCTED TO NOT GET UP BY HER SELF AND TO USE CALL LIGHT WHEN READY TO LAY BACK DOWN OR USE COMMODE. CALL LIGHT WITHIN REACH.
--- NOTE | 2021-06-20 22:10 | NUR ---
PT UP TO BR VIA . PT ABLE TO TRANSFER FROM BED TO AND WC TO COMMODE INDEPENDENTLY. PT BACK IN BED AND READY TO GO TO SLEEP. VANCO RUNNING. CALL LIGHT WITHIN REACH.
--- NOTE | 2021-06-21 00:25 | NUR ---
PT SITTING ON EDGE OF BED ROCKING, WHEN QUESTIONED REGARDING HER PAIN LEVEL SHE STATES THAT HER RIGHT SHOULDER NO LONGER HURTS BUT THAT HER LEGS ARE RATED AT 8/10. RN ASKED PT WHAT SHE COULD DO FOR HER AND PT STATES THAT THIS IS NORMAL AND THAT IT JUST TAKES TIME. RN INSTRUCTED PT TO LET STAFF KNOW WHEN SHE WAS READY TO LAY DOWN. PT VERBALIZES UNDERSTANDING. CALL LIGHT WITHIN REACH.
--- NOTE | 2021-06-21 05:29 | NUR ---
PT SPENT A CONSIDERABLE AMOUNT OF TIME DURING BEGINNING OF SHIFT SITTING ON EDGE OF BED ATTEMPTING TO EASE THE PAIN IN LOWER EXTREMETIES. UP TO BR VIA WC AND THEN BACK TO EDGE OF BED, ROCKING MOST OF THE TIME. PT FINALLY LAYED BACK DOWN AROUND 0100. PT HAS SLEPT QUIETLY SINCE, CALL LIGHT HAS BEEN WITHIN REACH THE ENTIRE SHIFT.
--- NOTE | 2021-06-21 18:14 | NUR ---
DISCHARGE NOTE PT D/C HOME VIA WHEELCHAIR TO MEET , SHEA, AT HOSPITAL EXIT. PT VERY EAGER TO GO HOME. PT EDUCATED ON DISCHARGE INSTRUCTIONS AND REINFORCED NEED FOR FOLLOW-UP WITH WOUND CLINIC & THAT HOME HEALTH WILL BE CONTACTING.
--- NOTE | 2021-06-24 09:26 | NUR ---
06/24/21 0926 Sarah Villalba VERIFICATION: EDIT CHART.
== END 2021-06-21 16:40 | disposition home or self-care (01) | DRG 571 ==
LOC: ER 16:30 → MEDS 21:35 → ORSCIP 06-19 18:17
PROVIDERS: Emergency Medicine Emergency Medical Services; Orthopaedic Surgery; Student in an Organized Health Care Education/Training Program; ADMIT Hospitalist
PROC: 0JBN0ZZ Excision of Right Lower Leg Subcutaneous Tissue and Fascia, Open Approach (ICD-10-PCS; 2021-06-19)
PROC: 0JCN0ZZ Extirpation of Matter from Right Lower Leg Subcutaneous Tissue and Fascia, Open Approach (ICD-10-PCS; principal; 2021-06-19 14:30)
DX: L02.415 Cutaneous abscess of right lower limb (principal); Z68.41 Body mass index [BMI] 40.0-44.9, adult; L97.212 Non-pressure chronic ulcer of right calf with fat layer exposed; L97.819 Non-pressure chronic ulcer of other part of right lower leg with unspecified severity; Z20.822 Contact with and (suspected) exposure to COVID-19; L03.115 Cellulitis of right lower limb; I10 Essential (primary) hypertension; M06.9 Rheumatoid arthritis, unspecified; I87.2 Venous insufficiency (chronic) (peripheral); M35.00 Sjogren syndrome, unspecified; K21.9 Gastro-esophageal reflux disease without esophagitis; F32.9 Major depressive disorder, single episode, unspecified; G47.00 Insomnia, unspecified; G25.81 Restless legs syndrome; E66.9 Obesity, unspecified; B96.89 Other specified bacterial agents as the cause of diseases classified elsewhere; M81.0 Age-related osteoporosis without current pathological fracture; Z79.899 Other long term (current) drug therapy; Z79.1 Long term (current) use of non-steroidal anti-inflammatories (NSAID); Z88.8 Allergy status to other drugs, medicaments and biological substances; Z79.2 Long term (current) use of antibiotics; Z87.440 Personal history of urinary (tract) infections
CPT/HCPCS: 36415; 80053; 80202; 82550; 83605; 85025; 85610; 85651; 86141; 86850; 86900; 86901; 87040; 88304; 88305; 93005; 93010; 96365; 96366; 96367; 99284-25; A9270; J1100; J1644; J2250; J2405; J2543; J2704; J3010; J3370; J7050; J8610; U0004

== ENCOUNTER 2021-06-24 00:51 | Day surgery (SDC) | payer OTHER ==
[~2021-06-24 00:51] MED LIST changes: +ARTHRITIS PAIN50 GM TOP; +BACTRIM 400-801 EACH PO; +BENAZEPRIL HCL40 M1 PO; +BUMETANIDE2 M4 PO; +Bentyl10 MG PO; +DILTIAZEM 24HR120 M4 PO; +DULOXETINE HCL60 M1 PO; +ENBREL SUR50 MG/1 M1 SC; +ESTRADIOL0.5 MG PO; +HYDROCODONE-AC1 EAC7 PO; +LANSOPRAZOLE30 MG PO; +MACRODANTIN PO; +METHOTREXATE PO; +MOBIC15 MG PO; +NORT10 PO; +POTCHL20ER PO; +PRAMIPEXOLE D0.25 M1 PO; +RABE20 PO; +Toprol Xl200 MG PO; +Vitamin D2000 UNIT PO; +ZOLEDRONIC ACID4 M1 IV
== END 2021-06-24 23:06 | disposition home or self-care (01) ==
LOC: WOUND 00:51
DX: L03.115 Cellulitis of right lower limb (principal); S81.801A Unspecified open wound, right lower leg, initial encounter; L02.415 Cutaneous abscess of right lower limb; S80.11XA Contusion of right lower leg, initial encounter; I87.2 Venous insufficiency (chronic) (peripheral); M79.604 Pain in right leg; X58.XXXA Exposure to other specified factors, initial encounter

== ENCOUNTER 2021-06-28 01:56 | Day surgery (SDC) | payer OTHER | END 2021-06-28 23:24 | disposition home or self-care (01) | LOC: WOUND 01:56 | DX: S81.801D Unspecified open wound, right lower leg, subsequent encounter (principal); S80.11XD Contusion of right lower leg, subsequent encounter; X58.XXXD Exposure to other specified factors, subsequent encounter; L03.115 Cellulitis of right lower limb; L02.415 Cutaneous abscess of right lower limb; I87.2 Venous insufficiency (chronic) (peripheral); M79.604 Pain in right leg ==

== ENCOUNTER 2021-07-01 02:40 | Day surgery (SDC) | payer OTHER | END 2021-07-01 22:58 | disposition home or self-care (01) | LOC: WOUND 02:40 | DX: L97.815 Non-pressure chronic ulcer of other part of right lower leg with muscle involvement without evidence of necrosis (principal); L03.115 Cellulitis of right lower limb; L02.415 Cutaneous abscess of right lower limb; S81.801D Unspecified open wound, right lower leg, subsequent encounter; S80.11XD Contusion of right lower leg, subsequent encounter; X58.XXXD Exposure to other specified factors, subsequent encounter; I87.2 Venous insufficiency (chronic) (peripheral); M79.604 Pain in right leg | CPT/HCPCS: A9270 ==

== ENCOUNTER 2021-07-08 05:08 | Day surgery (SDC) | payer OTHER | END 2021-07-08 23:30 | disposition home or self-care (01) | LOC: WOUND 05:08 | DX: L03.115 Cellulitis of right lower limb (principal); L97.815 Non-pressure chronic ulcer of other part of right lower leg with muscle involvement without evidence of necrosis; I87.2 Venous insufficiency (chronic) (peripheral); S91.105A Unspecified open wound of left lesser toe(s) without damage to nail, initial encounter; S81.802A Unspecified open wound, left lower leg, initial encounter | CPT/HCPCS: A9270 ==

== ENCOUNTER 2021-07-15 05:47 | Day surgery (SDC) | payer OTHER | END 2021-07-15 22:52 | disposition home or self-care (01) | LOC: WOUND 05:47 | DX: L97.812 Non-pressure chronic ulcer of other part of right lower leg with fat layer exposed (principal); L03.115 Cellulitis of right lower limb; L02.415 Cutaneous abscess of right lower limb; S81.801D Unspecified open wound, right lower leg, subsequent encounter; S80.11XD Contusion of right lower leg, subsequent encounter; X58.XXXD Exposure to other specified factors, subsequent encounter; I87.2 Venous insufficiency (chronic) (peripheral); M79.604 Pain in right leg | CPT/HCPCS: A9270 ==

== ENCOUNTER 2021-07-22 03:06 | Day surgery (SDC) | payer OTHER | END 2021-07-22 22:54 | disposition home or self-care (01) | LOC: WOUND 03:06 | DX: L97.815 Non-pressure chronic ulcer of other part of right lower leg with muscle involvement without evidence of necrosis (principal); L03.115 Cellulitis of right lower limb; L02.415 Cutaneous abscess of right lower limb; S81.801D Unspecified open wound, right lower leg, subsequent encounter; S80.11XD Contusion of right lower leg, subsequent encounter; W01.0XXD Fall on same level from slipping, tripping and stumbling without subsequent striking against object, subsequent encounter; I87.2 Venous insufficiency (chronic) (peripheral); M79.604 Pain in right leg | CPT/HCPCS: A9270; G0463 ==

== ENCOUNTER → 2021-07-24 | Outpatient (CLI) | payer OTHER | END | disposition home or self-care (01) | LOC: LAB SHORT 15:03 | DX: N39.0 Urinary tract infection, site not specified (principal) | CPT/HCPCS: 87077; 87086; 87186 ==

== ENCOUNTER 2021-07-29 03:54 | Day surgery (SDC) | payer OTHER | END 2021-07-29 12:00 | disposition home or self-care (01) | LOC: WOUND 03:54 | DX: L97.815 Non-pressure chronic ulcer of other part of right lower leg with muscle involvement without evidence of necrosis (principal); L03.115 Cellulitis of right lower limb; L02.415 Cutaneous abscess of right lower limb; S81.801D Unspecified open wound, right lower leg, subsequent encounter; S80.11XD Contusion of right lower leg, subsequent encounter; X58.XXXD Exposure to other specified factors, subsequent encounter; I87.2 Venous insufficiency (chronic) (peripheral); M79.604 Pain in right leg | CPT/HCPCS: A9270 ==

== ENCOUNTER 2021-08-12 06:08 | Day surgery (SDC) | payer OTHER | END 2021-08-12 23:20 | disposition home or self-care (01) | LOC: WOUND 06:08 | DX: L97.815 Non-pressure chronic ulcer of other part of right lower leg with muscle involvement without evidence of necrosis (principal); S81.801D Unspecified open wound, right lower leg, subsequent encounter; S80.11XD Contusion of right lower leg, subsequent encounter; X58.XXXD Exposure to other specified factors, subsequent encounter; L03.115 Cellulitis of right lower limb; L02.415 Cutaneous abscess of right lower limb; I87.2 Venous insufficiency (chronic) (peripheral); M79.604 Pain in right leg | CPT/HCPCS: A9270 ==

== ENCOUNTER 2021-08-19 05:32 | Day surgery (SDC) | payer OTHER | END 2021-08-19 23:00 | disposition home or self-care (01) | LOC: WOUND 05:32 | DX: S81.801D Unspecified open wound, right lower leg, subsequent encounter (principal); S80.11XD Contusion of right lower leg, subsequent encounter; X58.XXXD Exposure to other specified factors, subsequent encounter; L03.115 Cellulitis of right lower limb; L02.415 Cutaneous abscess of right lower limb; I87.2 Venous insufficiency (chronic) (peripheral); M79.604 Pain in right leg | CPT/HCPCS: G0463 ==

== ENCOUNTER 2021-09-02 03:40 | Day surgery (SDC) | payer OTHER | END 2021-09-02 23:06 | disposition home or self-care (01) | LOC: WOUND 03:40 | DX: L97.812 Non-pressure chronic ulcer of other part of right lower leg with fat layer exposed (principal); L97.819 Non-pressure chronic ulcer of other part of right lower leg with unspecified severity; L03.115 Cellulitis of right lower limb; L02.415 Cutaneous abscess of right lower limb; S81.801D Unspecified open wound, right lower leg, subsequent encounter; S80.11XD Contusion of right lower leg, subsequent encounter; X58.XXXD Exposure to other specified factors, subsequent encounter; I87.2 Venous insufficiency (chronic) (peripheral) | CPT/HCPCS: A9270 ==

== ENCOUNTER 2021-09-09 03:15 | Day surgery (SDC) | payer OTHER | END 2021-09-09 22:52 | disposition home or self-care (01) | LOC: WOUND 03:15 | DX: L97.815 Non-pressure chronic ulcer of other part of right lower leg with muscle involvement without evidence of necrosis (principal); S81.801D Unspecified open wound, right lower leg, subsequent encounter; S80.11XD Contusion of right lower leg, subsequent encounter; X58.XXXD Exposure to other specified factors, subsequent encounter; L03.115 Cellulitis of right lower limb; L02.415 Cutaneous abscess of right lower limb; I87.2 Venous insufficiency (chronic) (peripheral); M79.604 Pain in right leg | CPT/HCPCS: A9270 ==

== ENCOUNTER 2021-09-16 04:15 | Day surgery (SDC) | payer OTHER | END 2021-09-16 12:00 | disposition home or self-care (01) | LOC: WOUND 04:15 | DX: L97.812 Non-pressure chronic ulcer of other part of right lower leg with fat layer exposed (principal); L03.115 Cellulitis of right lower limb; L02.415 Cutaneous abscess of right lower limb; S81.801D Unspecified open wound, right lower leg, subsequent encounter; S80.11XD Contusion of right lower leg, subsequent encounter; X58.XXXD Exposure to other specified factors, subsequent encounter; I87.2 Venous insufficiency (chronic) (peripheral) | CPT/HCPCS: A9270 ==

== ENCOUNTER 2021-09-22 03:43 | Inpatient (IN) | payer OTHER ==
[~2021-09-22] VITALS: Ht 167.6 cm; Wt 129.2 kg
[2021-09-22 04:15] LABS: BASOPHILS ABSOLUTE AUTO 0.02 K/mm3 (0.00-0.23); BASOPHILS PERCENT AUTO 0 % (0-2); EOSINOPHILS PERCENT AUTO 0 % (0-6); Hematocrit 36.5 % (33.0-51.0); Hemoglobin 11.6 g/dL (11.5-16.0); IMMATURE GRAN ABSOLUTE AUTO 0.06 K/mm3 (0.00-0.10); IMMATURE GRAN PERCENT AUTO 1 % (0-1); LYMPHOCYTES ABSOLUTE AUTO 0.31 K/mm3 (0.84-5.20); LYMPHOCYTES PERCENT AUTO 3 % (21-46); MONOCYTES ABSOLUTE AUTO 0.15 K/mm3 (0.16-1.47); MONOCYTES PERCENT AUTO 1 % (4-13); Mean Corpuscular HGB 31.2 pg (26.0-34.0); Mean Corpuscular HGB Conc 31.8 g/dL (31.5-36.5); Mean Corpuscular Volume 98 fL (80-100); NEUTROPHILS ABSOLUTE AUTO 11.61 K/mm3 (1.96-9.15); NEUTROPHILS PERCENT AUTO 96 % (41-73); Platelet Count 193 K/mm3 (150-400); RDW Coefficient Variation 17.7 % (11.7-14.2); RDW Standard Deviation 63.9 fL (35.1-46.3); Red Blood Cell Count 3.72 M/mm3 (3.80-5.20); White Blood Cell Count 12.15 K/mm3 (4.00-11.30)
[2021-09-22 04:36] LABS: Alanine Aminotransfer (ALT/SGP 23 U/L (12-78); Albumin, Blood 2.7 g/dL (3.4-5.0); Albumin/Globulin Ratio 0.7 (0.8-1.8); Alk Phos 73 U/L (50-136); Anion Gap 6 mmol/L (6-16); Aspartate Aminotrans (AST/SGOT 27 U/L (12-37); Bilirubin, Total 0.8 mg/dL (0.1-1.0); Blood Urea Nitrogen 15 mg/dL (8-24); Bun/Creatinine Ratio 23.7 (12.0-20.0); CO2, Blood 33 mmol/L (21-32); Calcium, Blood 9.2 mg/dL (8.5-10.1); Chloride, Blood 95 mmol/L (98-108); Creatinine, Blood 0.63 mg/dL (0.40-1.00); Globulin, Blood 3.9 g/dL (2.2-4.0); Glomerular Filtration Rate >60 (60-); Glucose, Blood 137 mg/dL (70-99); Potassium, Blood 3.6 mmol/L (3.5-5.5); Sodium, Blood 134 mmol/L (136-145); Total Protein, Blood 6.6 g/dL (6.4-8.2)
[2021-09-22 05:49] LABS: Influenza A, PCR NEGATIVE (NEGATIVE); Influenza B, PCR NEGATIVE (NEGATIVE); Resp Syncytial Virus, PCR NEGATIVE (NEGATIVE); SARS-Cov-2 (COVID-19) PCR, MMC NEGATIVE (NEGATIVE)
--- NOTE | 2021-09-22 18:53 | NUR ---
PT ARRIVED TO 350 VIA GURNEY FROM ED. SHE WAS MOVED TO BED. ORIENTED TO ROOM LAYOUT AND CALL SYSTEM, CALL LIGHT IN REACH.
--- NOTE | 2021-09-23 04:27 | NUR ---
PATIENT HAS RESTED WELL OVER NIGHT. A&O X4. HAS SOME MILD FORGETFULNESS. PATIENT IS WEAK AND AMBULATES WITH A WALKER ASSIST OF TWO. OTHO HAS BEEN CONSULTED FOR THE EXTENSIVE WOUND ON HER RLE AND THE CELLULITIS ON BILAT LE VITALS REVIEWED . WILL CONTINUE TO MONITOR UNTIL SHIFT CHANGE.
--- NOTE | 2021-09-23 05:00 | NUR ---
PATIENT WENT INTO A-FIB @0449 HR OF 105 [address] IN[address]GIST[address] MCINTOSH NOTIFIED AND NO FUTHWER ORDER GIVEN AT THIS TIME.
[2021-09-23 05:11] LABS: BASOPHILS ABSOLUTE AUTO 0.03 K/mm3 (0.00-0.23); BASOPHILS PERCENT AUTO 1 % (0-2); EOSINOPHILS ABSOLUTE AUTO 0.12 K/mm3 (0.00-0.68); EOSINOPHILS PERCENT AUTO 2 % (0-6); Hematocrit 34.3 % (33.0-51.0); Hemoglobin 10.7 g/dL (11.5-16.0); IMMATURE GRAN ABSOLUTE AUTO 0.05 K/mm3 (0.00-0.10); IMMATURE GRAN PERCENT AUTO 1 % (0-1); LYMPHOCYTES ABSOLUTE AUTO 0.82 K/mm3 (0.84-5.20); LYMPHOCYTES PERCENT AUTO 13 % (21-46); MONOCYTES ABSOLUTE AUTO 0.51 K/mm3 (0.16-1.47); MONOCYTES PERCENT AUTO 8 % (4-13); Mean Corpuscular HGB 30.7 pg (26.0-34.0); Mean Corpuscular HGB Conc 31.2 g/dL (31.5-36.5); Mean Corpuscular Volume 99 fL (80-100); Mean Platelet Volume 10.4 fL (9.1-12.4); NEUTROPHILS ABSOLUTE AUTO 4.88 K/mm3 (1.96-9.15); NEUTROPHILS PERCENT AUTO 76 % (41-73); Platelet Count 157 K/mm3 (150-400); RDW Coefficient Variation 17.8 % (11.7-14.2); RDW Standard Deviation 64.6 fL (35.1-46.3); Red Blood Cell Count 3.48 M/mm3 (3.80-5.20); White Blood Cell Count 6.41 K/mm3 (4.00-11.30)
[2021-09-23 06:09] LABS: Alanine Aminotransfer (ALT/SGP 19 U/L (12-78); Albumin, Blood 2.3 g/dL (3.4-5.0); Albumin/Globulin Ratio 0.8 (0.8-1.8); Alk Phos 58 U/L (50-136); Anion Gap 11 mmol/L (6-16); Aspartate Aminotrans (AST/SGOT 31 U/L (12-37); Bilirubin, Total 0.7 mg/dL (0.1-1.0); Blood Urea Nitrogen 9 mg/dL (8-24); Bun/Creatinine Ratio 15.6 (12.0-20.0); CO2, Blood 28 mmol/L (21-32); Calcium, Blood 8.2 mg/dL (8.5-10.1); Chloride, Blood 98 mmol/L (98-108); Creatinine, Blood 0.58 mg/dL (0.40-1.00); Globulin, Blood 2.9 g/dL (2.2-4.0); Glomerular Filtration Rate >60 (60-); Glucose, Blood 85 mg/dL (70-99); Sodium, Blood 137 mmol/L (136-145); Total Protein, Blood 5.2 g/dL (6.4-8.2)
--- NOTE | 2021-09-23 06:13 | NUR ---
PATIENT WENT FROM A-FIB TO AFLUTTER AND IA NOW BACK IN SR PER LUMBER SORTER. PATIENT IS ASYMPTOMATIC. WILL CONTINUE TO MONITOR.
--- NOTE | 2021-09-23 13:21 | NUR ---
Echocardiogram completed.
--- NOTE | 2021-09-23 14:01 | NUR ---
PT TO SDS FROM ROOM 350. NPO. MENDOZA CATH IN PLACE, CLEAR YELLOW URINE NOTED. Lungs clear T/O to Auscultation. History, Chart, Medications and Allergies reviewed before start of procedure. CHEM BG 74.
--- NOTE | 2021-09-23 14:39 | NUR ---
09/23/21 1438 Marcel Ureña PATIENT ENTERED OR WITH MENDOZA IN PLACE. ON SCHEDULED VANCO 0926 AND ZOSYN 1116. LEFT PAS STOCKING LOWER VELCRO STRAP LEFT UNHOOKED, SITE PADDED WITH 4X4. OPEN SKIN NOTED ON LOWER LEG 2X2 INCHES. MD AWARE NO NEW ORDERS.
--- NOTE | 2021-09-23 16:43 | NUR ---
I went to visit the patient in her [facility] room 350. Patient was alert and very pleasant. She states she lives in a single story home, where her son recently built ramps onto both the front and back entrances of the home. She lives with her spouse, Jovany. Her helps with transportation if needed, although the patient is primarily independent. She does have a walker for her use. She does not have a preferences on home health agencies. She has been to [facility] in the past for SNF and will decline going to a SNF if recommended.
--- NOTE | 2021-09-23 18:19 | NUR ---
SHIFT SUMMARY PT HAS BEEN ALERT AND APPROPRIATE THROUGHOUT DAY. DAY SURGERY HERE APPROX 1330 TO PICK PT UP FOR SURGERY. RETURNED TO ROOM WITH ALREADY WAITING IN ROOM. AWAKE AND ALERT ON ARRIVAL BACK TO ROOM. VITAL SIGNS STARTED. WOUND VAC IN PLACE TO R LATERAL [place] AND FUNCTIONING WELL. REPORT GIVEN TO AYDEN FOR PT TO TRANSFER TO ROOM 311. O2 REMOVED ON TRANSFER AND NOTIFIED RN HER O2 HAS BEEN REMOVED. MOVED TO ROOM 311.
[2021-09-24 04:48] LABS: BASOPHILS ABSOLUTE AUTO 0.01 K/mm3 (0.00-0.23); BASOPHILS PERCENT AUTO 0 % (0-2); EOSINOPHILS PERCENT AUTO 0 % (0-6); Hematocrit 33.2 % (33.0-51.0); Hemoglobin 10.6 g/dL (11.5-16.0); IMMATURE GRAN ABSOLUTE AUTO 0.02 K/mm3 (0.00-0.10); IMMATURE GRAN PERCENT AUTO 1 % (0-1); LYMPHOCYTES ABSOLUTE AUTO 0.62 K/mm3 (0.84-5.20); LYMPHOCYTES PERCENT AUTO 18 % (21-46); MONOCYTES ABSOLUTE AUTO 0.28 K/mm3 (0.16-1.47); MONOCYTES PERCENT AUTO 8 % (4-13); Mean Corpuscular HGB 30.8 pg (26.0-34.0); Mean Corpuscular HGB Conc 31.9 g/dL (31.5-36.5); Mean Corpuscular Volume 97 fL (80-100); Mean Platelet Volume 10.5 fL (9.1-12.4); NEUTROPHILS ABSOLUTE AUTO 2.61 K/mm3 (1.96-9.15); NEUTROPHILS PERCENT AUTO 74 % (41-73); Platelet Count 184 K/mm3 (150-400); RDW Coefficient Variation 17.1 % (11.7-14.2); RDW Standard Deviation 60.6 fL (35.1-46.3); Red Blood Cell Count 3.44 M/mm3 (3.80-5.20); White Blood Cell Count 3.54 K/mm3 (4.00-11.30)
--- NOTE | 2021-09-24 04:56 | NUR ---
PATIENT WAS ALERT AND ORIENTED X4, STABLE VITAL SIGNS, NO ACUTE CHANGES. MENDOZA IN PLACE. PATIENT COMPLAINED ABOUT PAIN AND WAS TREATED WITH HYDROCODONE AND SCHEDILED TRAMADOL. PT IS 1-2 PERSON ASSIST. PT DENIES ANY SHORTNESS FO BREATH
[2021-09-24 05:53] LABS: Anion Gap 7 mmol/L (6-16); Blood Urea Nitrogen 10 mg/dL (8-24); CO2, Blood 33 mmol/L (21-32); Calcium, Blood 8.2 mg/dL (8.5-10.1); Chloride, Blood 97 mmol/L (98-108); Creatinine, Blood 0.67 mg/dL (0.40-1.00); Glomerular Filtration Rate >60 (60-); Glucose, Blood 136 mg/dL (70-99); Potassium, Blood 3.5 mmol/L (3.5-5.5); Sodium, Blood 137 mmol/L (136-145)
[2021-09-24 08:27] LABS: Vancomycin, Trough 6.7 ug/mL (5.0-10.0)
--- NOTE | 2021-09-24 18:15 | NUR ---
Alet and oriented x3 , one person assist with ADLS. Wound vac on right leg running properly, the site is CDI. Continue on IV ABO therapy for right leg wound infection.Vital signs are stable. Blood sugar did not require insulin coverage. Velazquez cath is patent , draining clear yellow urine. Call appropriately and call light within reach. Continue to monitor.
--- NOTE | 2021-09-25 06:00 | NUR ---
PATIENT WAS ALERT AND ORIENTED X4, STABLE VITAL SIGNS, NO ACUTE CHANGES. PATIENT COMPLAINED OF PAIN AND WAS GIVEN NORCO FOR THE PAIN. WOUND VAC ON RIGHT LEG, MENDOZA IS PATENT AND PATIENT'S OUT PUT WAS 700ML. PATIENT SLEPT FOR THE MOST PART OF THE NIGHT.
[2021-09-25 06:12] LABS: BASOPHILS ABSOLUTE AUTO 0.01 K/mm3 (0.00-0.23); BASOPHILS PERCENT AUTO 0 % (0-2); EOSINOPHILS ABSOLUTE AUTO 0.07 K/mm3 (0.00-0.68); EOSINOPHILS PERCENT AUTO 1 % (0-6); Hematocrit 36.8 % (33.0-51.0); Hemoglobin 11.6 g/dL (11.5-16.0); IMMATURE GRAN ABSOLUTE AUTO 0.08 K/mm3 (0.00-0.10); IMMATURE GRAN PERCENT AUTO 2 % (0-1); LYMPHOCYTES ABSOLUTE AUTO 1.45 K/mm3 (0.84-5.20); LYMPHOCYTES PERCENT AUTO 27 % (21-46); MONOCYTES ABSOLUTE AUTO 0.67 K/mm3 (0.16-1.47); MONOCYTES PERCENT AUTO 13 % (4-13); Mean Corpuscular HGB 30.9 pg (26.0-34.0); Mean Corpuscular HGB Conc 31.5 g/dL (31.5-36.5); Mean Corpuscular Volume 98 fL (80-100); NEUTROPHILS ABSOLUTE AUTO 3.09 K/mm3 (1.96-9.15); NEUTROPHILS PERCENT AUTO 58 % (41-73); Platelet Count 202 K/mm3 (150-400); RDW Coefficient Variation 16.9 % (11.7-14.2); RDW Standard Deviation 61.1 fL (35.1-46.3); Red Blood Cell Count 3.76 M/mm3 (3.80-5.20); White Blood Cell Count 5.37 K/mm3 (4.00-11.30)
[2021-09-25 07:20] LABS: Anion Gap 11 mmol/L (6-16); Blood Urea Nitrogen 21 mg/dL (8-24); Bun/Creatinine Ratio 30.3 (12.0-20.0); CO2, Blood 32 mmol/L (21-32); Calcium, Blood 8.8 mg/dL (8.5-10.1); Chloride, Blood 95 mmol/L (98-108); Creatinine, Blood 0.69 mg/dL (0.40-1.00); Glomerular Filtration Rate >60 (60-); Glucose, Blood 105 mg/dL (70-99); Potassium, Blood 2.9 mmol/L (3.5-5.5); Sodium, Blood 138 mmol/L (136-145)
[2021-09-25] MEDS ORDERED: SYMBICORT 16010.2 GM INH (17:17)
--- NOTE | 2021-09-25 18:17 | NUR ---
Alert and oriented x3 , able to make needs known. c/o of bilateral foot pain, norco 1 tab po was given twice and it was effective. BP elevated , Dr Chu notified and would start new BP med in AM. Right leg wound was changed and wound vac in place. Continuing on ABO therapy for right wound. Blood glucose under 150 , no insulin required. Call appropriately and call light within reach. Continue to monitor.
[2021-09-25 20:18] LABS: Vancomycin, Trough 16.7 ug/mL (5.0-10.0)
--- NOTE | 2021-09-26 04:40 | NUR ---
PATIENT WAS ALERT AND ORIENTED X4, STABLE VITAL SIGNS, NO ACUTE CHANGES. MENDOZA IS PATENT. WOUND VAC IN PLACE. PATIENT COMPLAINED ABOUT PAIN AND WAS GIVEN NORCO FOR THE PAIN. PATIENT SLEPT THROUGH THE NIGHT. CALL LIGHT IN PLACE AND BED TO THE LOWEST LEVEL.
[2021-09-26 05:19] LABS: BASOPHILS ABSOLUTE AUTO 0.03 K/mm3 (0.00-0.23); BASOPHILS PERCENT AUTO 1 % (0-2); EOSINOPHILS ABSOLUTE AUTO 0.38 K/mm3 (0.00-0.68); EOSINOPHILS PERCENT AUTO 7 % (0-6); Hematocrit 34.6 % (33.0-51.0); Hemoglobin 10.9 g/dL (11.5-16.0); IMMATURE GRAN ABSOLUTE AUTO 0.11 K/mm3 (0.00-0.10); IMMATURE GRAN PERCENT AUTO 2 % (0-1); LYMPHOCYTES PERCENT AUTO 34 % (21-46); MONOCYTES ABSOLUTE AUTO 0.82 K/mm3 (0.16-1.47); MONOCYTES PERCENT AUTO 15 % (4-13); Mean Corpuscular HGB 30.6 pg (26.0-34.0); Mean Corpuscular HGB Conc 31.5 g/dL (31.5-36.5); Mean Corpuscular Volume 97 fL (80-100); Mean Platelet Volume 10.6 fL (9.1-12.4); NEUTROPHILS ABSOLUTE AUTO 2.43 K/mm3 (1.96-9.15); NEUTROPHILS PERCENT AUTO 43 % (41-73); Platelet Count 197 K/mm3 (150-400); RDW Standard Deviation 61.5 fL (35.1-46.3); Red Blood Cell Count 3.56 M/mm3 (3.80-5.20); White Blood Cell Count 5.67 K/mm3 (4.00-11.30)
[2021-09-26 06:20] LABS: Anion Gap 6 mmol/L (6-16); Blood Urea Nitrogen 20 mg/dL (8-24); Bun/Creatinine Ratio 30.3 (12.0-20.0); CO2, Blood 36 mmol/L (21-32); Calcium, Blood 8.7 mg/dL (8.5-10.1); Chloride, Blood 98 mmol/L (98-108); Creatinine, Blood 0.66 mg/dL (0.40-1.00); Glomerular Filtration Rate >60 (60-); Glucose, Blood 96 mg/dL (70-99); Potassium, Blood 3.2 mmol/L (3.5-5.5); Sodium, Blood 140 mmol/L (136-145)
[2021-09-26] MEDS ORDERED: LEVOFLOXACIN750 MG PO (15:44)
[2021-09-26] MEDS ORDERED: [UNRECOGNIZED DRUG - SUPPLY] TOP (15:45)
--- NOTE | 2021-09-26 16:13 | NUR ---
Alert and oriented x3, able to make needs known.Complained of pain, norco was given and it was effective.One person assist with ADLs.Wound vac was dc and alginate dressing was applied , covered edry and kerlix and ykaov wrap. Vital signs are stable. Patient discharged home in a stable condition and discharged instruction was given and acknowledged.
--- NOTE | 2021-09-26 17:04 | NUR ---
Per chart review with Dr. Chu, patient appropriate for discharge this afternoon. Patient feels safe to return home and denies barriers to discharge. Patient states her helps with transport and she currently has lots of family support at home. Tomeka Brito contacted and did a [id number] for home health services. Patient to continue to be seen as outpatient at wound clinic. Hospital follow up scheduled with Justino Yo on Thursday, September 30, 2021 at 09:50 AM. notified patient is to discharged and agreed to transport.
== END 2021-09-26 16:19 | disposition home or self-care (01) | DRG 854 ==
LOC: ER 03:43 → ERHOLD 05:06 → MEDS 05:06
PROVIDERS: Family Medicine; Orthopaedic Surgery; Pharmacist; Student in an Organized Health Care Education/Training Program; ADMIT Internal Medicine
PROC: 0JBN0ZZ Excision of Right Lower Leg Subcutaneous Tissue and Fascia, Open Approach (ICD-10-PCS; principal; 2021-09-23 14:00)
DX: A41.9 Sepsis, unspecified organism (principal); Z68.42 Body mass index [BMI] 45.0-49.9, adult; L03.115 Cellulitis of right lower limb; L97.819 Non-pressure chronic ulcer of other part of right lower leg with unspecified severity; I10 Essential (primary) hypertension; Z20.822 Contact with and (suspected) exposure to COVID-19; M06.9 Rheumatoid arthritis, unspecified; E66.01 Morbid (severe) obesity due to excess calories; E86.0 Dehydration; F41.9 Anxiety disorder, unspecified; G47.00 Insomnia, unspecified; G25.81 Restless legs syndrome; M35.00 Sjogren syndrome, unspecified; E87.6 Hypokalemia; I87.2 Venous insufficiency (chronic) (peripheral); G89.4 Chronic pain syndrome; Z96.652 Presence of left artificial knee joint; Z91.048 Other nonmedicinal substance allergy status; Z90.710 Acquired absence of both cervix and uterus; Z90.721 Acquired absence of ovaries, unilateral; Z98.890 Other specified postprocedural states; Z79.899 Other long term (current) drug therapy
CPT/HCPCS: 0241U; 36415; 51702; 71045; 80048; 80053; 80202; 82947; 83605; 83880; 84443; 85025; 87040; 87071; 87075; 87077; 87186; 87205; 93005; 93010; 93306; 94760; 96365; 96375; 96376; 99285-25; A9270; J1100; J1170; J1885; J2250; J2405; J2543; J2704; J2765; J3010; J3370; J7030; J7050; P9046

== ENCOUNTER 2021-10-02 05:56 | Day surgery (SDC) | payer OTHER ==
[~2021-10-02 05:56] MED LIST changes: +LEVOFLOXACIN750 MG PO; +SYMBICORT 16010.2 GM INH; +[UNRECOGNIZED DRUG - SUPPLY] TOP
== END 2021-10-02 23:12 | disposition home or self-care (01) ==
LOC: WOUND 05:56
PROC: 0JBN0ZZ Excision of Right Lower Leg Subcutaneous Tissue and Fascia, Open Approach (ICD-10-PCS; principal; 2021-10-02)
DX: L97.812 Non-pressure chronic ulcer of other part of right lower leg with fat layer exposed (principal); L97.329 Non-pressure chronic ulcer of left ankle with unspecified severity; L02.415 Cutaneous abscess of right lower limb; I87.2 Venous insufficiency (chronic) (peripheral); L03.115 Cellulitis of right lower limb; M06.9 Rheumatoid arthritis, unspecified; Z79.899 Other long term (current) drug therapy
CPT/HCPCS: A9270

== ENCOUNTER 2021-10-14 01:07 | Day surgery (SDC) | payer OTHER | END 2021-10-14 23:20 | disposition home or self-care (01) | LOC: WOUND 01:07 | DX: L97.812 Non-pressure chronic ulcer of other part of right lower leg with fat layer exposed (principal); S81.801D Unspecified open wound, right lower leg, subsequent encounter; S80.11XD Contusion of right lower leg, subsequent encounter; X58.XXXD Exposure to other specified factors, subsequent encounter; L03.115 Cellulitis of right lower limb; L02.415 Cutaneous abscess of right lower limb; I87.2 Venous insufficiency (chronic) (peripheral); M79.604 Pain in right leg | CPT/HCPCS: A9270 ==

== ENCOUNTER 2021-10-28 02:59 | Day surgery (SDC) | payer OTHER | END 2021-10-28 22:43 | disposition home or self-care (01) | LOC: WOUND 02:59 | DX: L97.812 Non-pressure chronic ulcer of other part of right lower leg with fat layer exposed (principal); L97.922 Non-pressure chronic ulcer of unspecified part of left lower leg with fat layer exposed; L97.312 Non-pressure chronic ulcer of right ankle with fat layer exposed; L03.115 Cellulitis of right lower limb; L02.415 Cutaneous abscess of right lower limb; S80.11XD Contusion of right lower leg, subsequent encounter; I87.2 Venous insufficiency (chronic) (peripheral); M79.604 Pain in right leg; M06.9 Rheumatoid arthritis, unspecified | CPT/HCPCS: A9270 ==

== ENCOUNTER 2021-11-06 01:15 | Day surgery (SDC) | payer OTHER | END 2021-11-06 23:08 | disposition home or self-care (01) | LOC: WOUND 01:15 | DX: L97.815 Non-pressure chronic ulcer of other part of right lower leg with muscle involvement without evidence of necrosis (principal); L97.312 Non-pressure chronic ulcer of right ankle with fat layer exposed; L97.922 Non-pressure chronic ulcer of unspecified part of left lower leg with fat layer exposed; L03.115 Cellulitis of right lower limb; L02.415 Cutaneous abscess of right lower limb; I87.2 Venous insufficiency (chronic) (peripheral); I73.9 Peripheral vascular disease, unspecified | CPT/HCPCS: A9270 ==

== ENCOUNTER 2021-11-13 03:19 | Day surgery (SDC) | payer OTHER | END 2021-11-14 02:26 | disposition home or self-care (01) | LOC: WOUND 03:19 | DX: L97.815 Non-pressure chronic ulcer of other part of right lower leg with muscle involvement without evidence of necrosis (principal); L97.312 Non-pressure chronic ulcer of right ankle with fat layer exposed; L97.922 Non-pressure chronic ulcer of unspecified part of left lower leg with fat layer exposed; L03.115 Cellulitis of right lower limb; L02.415 Cutaneous abscess of right lower limb; I87.2 Venous insufficiency (chronic) (peripheral); I73.9 Peripheral vascular disease, unspecified | CPT/HCPCS: A9270 ==

== ENCOUNTER 2021-11-18 03:11 | Day surgery (SDC) | payer OTHER | END 2021-11-18 23:26 | disposition home or self-care (01) | LOC: WOUND 03:11 | DX: L97.812 Non-pressure chronic ulcer of other part of right lower leg with fat layer exposed (principal); L97.822 Non-pressure chronic ulcer of other part of left lower leg with fat layer exposed; L03.115 Cellulitis of right lower limb; L02.415 Cutaneous abscess of right lower limb; S80.11XD Contusion of right lower leg, subsequent encounter; I87.2 Venous insufficiency (chronic) (peripheral); I73.9 Peripheral vascular disease, unspecified; M79.604 Pain in right leg | CPT/HCPCS: A9270 ==

== ENCOUNTER 2021-11-25 02:07 | Day surgery (SDC) | payer OTHER | END 2021-11-25 23:16 | disposition home or self-care (01) | LOC: WOUND 02:07 | DX: L97.812 Non-pressure chronic ulcer of other part of right lower leg with fat layer exposed (principal); I87.2 Venous insufficiency (chronic) (peripheral); I73.9 Peripheral vascular disease, unspecified; M06.9 Rheumatoid arthritis, unspecified; S80.11XD Contusion of right lower leg, subsequent encounter; W18.40XD Slipping, tripping and stumbling without falling, unspecified, subsequent encounter | CPT/HCPCS: A9270; G0463 ==

== ENCOUNTER 2021-12-09 03:04 | Day surgery (SDC) | payer OTHER | END 2021-12-09 23:37 | disposition home or self-care (01) | LOC: WOUND 03:04 | DX: L97.812 Non-pressure chronic ulcer of other part of right lower leg with fat layer exposed (principal); L97.922 Non-pressure chronic ulcer of unspecified part of left lower leg with fat layer exposed; L03.115 Cellulitis of right lower limb; L02.415 Cutaneous abscess of right lower limb; I87.2 Venous insufficiency (chronic) (peripheral); I73.9 Peripheral vascular disease, unspecified; M06.9 Rheumatoid arthritis, unspecified | CPT/HCPCS: A9270; G0463 ==

== ENCOUNTER 2021-12-16 05:51 | Day surgery (SDC) | payer OTHER | END 2021-12-16 23:29 | disposition home or self-care (01) | LOC: WOUND 05:51 | DX: L97.812 Non-pressure chronic ulcer of other part of right lower leg with fat layer exposed (principal); L97.922 Non-pressure chronic ulcer of unspecified part of left lower leg with fat layer exposed; L03.115 Cellulitis of right lower limb; L02.415 Cutaneous abscess of right lower limb; S80.11XD Contusion of right lower leg, subsequent encounter; I87.2 Venous insufficiency (chronic) (peripheral); M79.604 Pain in right leg; I73.9 Peripheral vascular disease, unspecified | CPT/HCPCS: A9270; G0463 ==

== ENCOUNTER 2021-12-23 02:24 | Day surgery (SDC) | payer OTHER | END 2021-12-23 22:43 | disposition home or self-care (01) | LOC: WOUND 02:24 | DX: L97.812 Non-pressure chronic ulcer of other part of right lower leg with fat layer exposed (principal); L97.922 Non-pressure chronic ulcer of unspecified part of left lower leg with fat layer exposed; L03.115 Cellulitis of right lower limb; L02.415 Cutaneous abscess of right lower limb; S80.11XD Contusion of right lower leg, subsequent encounter; I87.2 Venous insufficiency (chronic) (peripheral); M79.604 Pain in right leg; I73.9 Peripheral vascular disease, unspecified | CPT/HCPCS: A9270; G0463 ==

== ENCOUNTER 2022-01-06 02:08 | Day surgery (SDC) | payer OTHER | END 2022-01-06 23:28 | disposition home or self-care (01) | LOC: WOUND 02:08 | DX: L97.812 Non-pressure chronic ulcer of other part of right lower leg with fat layer exposed (principal); L97.829 Non-pressure chronic ulcer of other part of left lower leg with unspecified severity; I87.2 Venous insufficiency (chronic) (peripheral); I73.9 Peripheral vascular disease, unspecified; L03.115 Cellulitis of right lower limb; L02.415 Cutaneous abscess of right lower limb; S80.11XD Contusion of right lower leg, subsequent encounter; W01.0XXD Fall on same level from slipping, tripping and stumbling without subsequent striking against object, subsequent encounter | CPT/HCPCS: A9270 ==

== ENCOUNTER 2022-01-13 01:02 | Day surgery (SDC) | payer OTHER | END 2022-01-13 23:52 | disposition home or self-care (01) | LOC: WOUND 01:02 | DX: L97.812 Non-pressure chronic ulcer of other part of right lower leg with fat layer exposed (principal); L97.829 Non-pressure chronic ulcer of other part of left lower leg with unspecified severity; L03.115 Cellulitis of right lower limb; L02.415 Cutaneous abscess of right lower limb; S80.11XD Contusion of right lower leg, subsequent encounter; I87.2 Venous insufficiency (chronic) (peripheral); M79.604 Pain in right leg; I73.9 Peripheral vascular disease, unspecified | CPT/HCPCS: A9270 ==

== ENCOUNTER 2022-01-20 08:00 | Day surgery (SDC) | payer OTHER ==
[~2022-01-20 08:00] MED LIST changes: -ARTHRITIS PAIN50 GM TOP; +VOLTAREN ARTHRI20 GM TOP
== END 2022-01-20 23:59 | disposition home or self-care (01) ==
LOC: WOUND 08:00
DX: L97.822 Non-pressure chronic ulcer of other part of left lower leg with fat layer exposed (principal); L97.812 Non-pressure chronic ulcer of other part of right lower leg with fat layer exposed; I87.2 Venous insufficiency (chronic) (peripheral); I73.9 Peripheral vascular disease, unspecified; M06.9 Rheumatoid arthritis, unspecified; L03.115 Cellulitis of right lower limb; L02.415 Cutaneous abscess of right lower limb; S80.11XA Contusion of right lower leg, initial encounter; W18.49XA Other slipping, tripping and stumbling without falling, initial encounter

== ENCOUNTER 2022-02-03 01:10 | Day surgery (SDC) | payer OTHER ==
[~2022-02-03 01:10] MED LIST changes: +ARTHRITIS PAIN50 GM TOP; -VOLTAREN ARTHRI20 GM TOP
== END 2022-02-03 23:07 | disposition home or self-care (01) ==
LOC: WOUND 01:10
DX: L97.822 Non-pressure chronic ulcer of other part of left lower leg with fat layer exposed (principal); L97.812 Non-pressure chronic ulcer of other part of right lower leg with fat layer exposed; L03.115 Cellulitis of right lower limb; S80.11XD Contusion of right lower leg, subsequent encounter; I87.2 Venous insufficiency (chronic) (peripheral); M79.604 Pain in right leg; I73.9 Peripheral vascular disease, unspecified

== ENCOUNTER 2022-02-10 01:28 | Day surgery (SDC) | payer OTHER | END 2022-02-10 22:55 | disposition home or self-care (01) | LOC: WOUND 01:28 | DX: L97.812 Non-pressure chronic ulcer of other part of right lower leg with fat layer exposed (principal); L97.822 Non-pressure chronic ulcer of other part of left lower leg with fat layer exposed; I87.2 Venous insufficiency (chronic) (peripheral); I73.9 Peripheral vascular disease, unspecified; L03.115 Cellulitis of right lower limb; L02.415 Cutaneous abscess of right lower limb; S80.11XD Contusion of right lower leg, subsequent encounter; M06.9 Rheumatoid arthritis, unspecified; W01.0XXD Fall on same level from slipping, tripping and stumbling without subsequent striking against object, subsequent encounter ==

== ENCOUNTER 2022-02-17 01:02 | Day surgery (SDC) | payer OTHER | END 2022-02-17 23:27 | disposition home or self-care (01) | LOC: WOUND 01:02 | DX: L97.812 Non-pressure chronic ulcer of other part of right lower leg with fat layer exposed (principal); L97.822 Non-pressure chronic ulcer of other part of left lower leg with fat layer exposed; L03.115 Cellulitis of right lower limb; L02.415 Cutaneous abscess of right lower limb; S80.11XD Contusion of right lower leg, subsequent encounter; W01.0XXD Fall on same level from slipping, tripping and stumbling without subsequent striking against object, subsequent encounter; I87.2 Venous insufficiency (chronic) (peripheral); I73.9 Peripheral vascular disease, unspecified; M79.604 Pain in right leg | CPT/HCPCS: A9270 ==

== ENCOUNTER 2022-02-24 01:17 | Day surgery (SDC) | payer OTHER | END 2022-02-24 22:45 | disposition home or self-care (01) | LOC: WOUND 01:17 | DX: L97.812 Non-pressure chronic ulcer of other part of right lower leg with fat layer exposed (principal); L97.822 Non-pressure chronic ulcer of other part of left lower leg with fat layer exposed; L03.115 Cellulitis of right lower limb; L02.415 Cutaneous abscess of right lower limb; S80.11XD Contusion of right lower leg, subsequent encounter; X58.XXXD Exposure to other specified factors, subsequent encounter; I87.2 Venous insufficiency (chronic) (peripheral); M79.604 Pain in right leg; I73.9 Peripheral vascular disease, unspecified | CPT/HCPCS: A9270 ==

== ENCOUNTER 2022-02-28 01:03 | Day surgery (SDC) | payer OTHER | END 2022-02-28 23:25 | disposition home or self-care (01) | LOC: WOUND 01:03 | DX: L97.812 Non-pressure chronic ulcer of other part of right lower leg with fat layer exposed (principal); L97.922 Non-pressure chronic ulcer of unspecified part of left lower leg with fat layer exposed; L03.115 Cellulitis of right lower limb; L02.415 Cutaneous abscess of right lower limb; S80.11XA Contusion of right lower leg, initial encounter; M79.604 Pain in right leg; I73.9 Peripheral vascular disease, unspecified ==

== ENCOUNTER 2022-03-03 03:12 | Day surgery (SDC) | payer OTHER | END 2022-03-03 23:23 | disposition home or self-care (01) | LOC: WOUND 03:12 | DX: L97.812 Non-pressure chronic ulcer of other part of right lower leg with fat layer exposed (principal); L97.822 Non-pressure chronic ulcer of other part of left lower leg with fat layer exposed; L03.115 Cellulitis of right lower limb; L02.415 Cutaneous abscess of right lower limb; I87.2 Venous insufficiency (chronic) (peripheral) | CPT/HCPCS: A9270; G0463 ==

== ENCOUNTER 2022-03-07 05:31 | Day surgery (SDC) | payer OTHER | END 2022-03-07 23:03 | disposition home or self-care (01) | LOC: WOUND 05:31 | DX: L97.922 Non-pressure chronic ulcer of unspecified part of left lower leg with fat layer exposed (principal); L03.115 Cellulitis of right lower limb; L02.415 Cutaneous abscess of right lower limb; S80.11XD Contusion of right lower leg, subsequent encounter; X58.XXXD Exposure to other specified factors, subsequent encounter; I87.2 Venous insufficiency (chronic) (peripheral); M79.604 Pain in right leg; I73.9 Peripheral vascular disease, unspecified ==

== ENCOUNTER 2022-03-11 08:34 | Day surgery (SDC) | payer OTHER | END 2022-03-11 23:16 | disposition home or self-care (01) | LOC: WOUND 08:34 | DX: L97.812 Non-pressure chronic ulcer of other part of right lower leg with fat layer exposed (principal); L97.922 Non-pressure chronic ulcer of unspecified part of left lower leg with fat layer exposed; L03.115 Cellulitis of right lower limb; L02.415 Cutaneous abscess of right lower limb; S80.11XD Contusion of right lower leg, subsequent encounter; I87.2 Venous insufficiency (chronic) (peripheral); M79.604 Pain in right leg; I73.9 Peripheral vascular disease, unspecified ==

== ENCOUNTER 2022-03-17 08:38 | Day surgery (SDC) | payer OTHER | END 2022-03-17 23:25 | disposition home or self-care (01) | LOC: WOUND 08:38 | DX: L97.812 Non-pressure chronic ulcer of other part of right lower leg with fat layer exposed (principal); L97.922 Non-pressure chronic ulcer of unspecified part of left lower leg with fat layer exposed; L03.115 Cellulitis of right lower limb; L02.415 Cutaneous abscess of right lower limb; S80.11XD Contusion of right lower leg, subsequent encounter; X58.XXXD Exposure to other specified factors, subsequent encounter; I87.2 Venous insufficiency (chronic) (peripheral); M79.604 Pain in right leg; I73.9 Peripheral vascular disease, unspecified ==

== ENCOUNTER 2022-03-21 08:00 | Day surgery (SDC) | payer OTHER | END 2022-03-21 23:59 | disposition home or self-care (01) | LOC: WOUND 08:00 | DX: L97.812 Non-pressure chronic ulcer of other part of right lower leg with fat layer exposed (principal); L97.822 Non-pressure chronic ulcer of other part of left lower leg with fat layer exposed; L03.115 Cellulitis of right lower limb; L02.415 Cutaneous abscess of right lower limb; S80.11XD Contusion of right lower leg, subsequent encounter; W01.0XXD Fall on same level from slipping, tripping and stumbling without subsequent striking against object, subsequent encounter; I87.2 Venous insufficiency (chronic) (peripheral); M79.604 Pain in right leg; I73.9 Peripheral vascular disease, unspecified ==

== ENCOUNTER 2022-03-24 00:23 | Day surgery (SDC) | payer OTHER | END 2022-03-24 23:45 | disposition home or self-care (01) | LOC: WOUND 00:23 | DX: L97.812 Non-pressure chronic ulcer of other part of right lower leg with fat layer exposed (principal); L97.922 Non-pressure chronic ulcer of unspecified part of left lower leg with fat layer exposed; L03.115 Cellulitis of right lower limb; S80.11XD Contusion of right lower leg, subsequent encounter; L02.415 Cutaneous abscess of right lower limb; I87.2 Venous insufficiency (chronic) (peripheral); M79.604 Pain in right leg ==

== ENCOUNTER 2022-03-26 04:39 | Day surgery (SDC) | payer OTHER | END 2022-03-26 23:15 | disposition home or self-care (01) | LOC: WOUND 04:39 | DX: L97.812 Non-pressure chronic ulcer of other part of right lower leg with fat layer exposed (principal); L97.822 Non-pressure chronic ulcer of other part of left lower leg with fat layer exposed; L03.115 Cellulitis of right lower limb; L02.415 Cutaneous abscess of right lower limb; S80.11XD Contusion of right lower leg, subsequent encounter; W19.XXXD Unspecified fall, subsequent encounter; I87.2 Venous insufficiency (chronic) (peripheral); M79.604 Pain in right leg; I73.9 Peripheral vascular disease, unspecified | CPT/HCPCS: A9270 ==

== ENCOUNTER 2022-03-28 01:39 | Day surgery (SDC) | payer OTHER | END 2022-03-28 23:37 | disposition home or self-care (01) | LOC: WOUND 01:39 | DX: L97.812 Non-pressure chronic ulcer of other part of right lower leg with fat layer exposed (principal); L97.922 Non-pressure chronic ulcer of unspecified part of left lower leg with fat layer exposed; L03.115 Cellulitis of right lower limb; I87.2 Venous insufficiency (chronic) (peripheral); M79.604 Pain in right leg; I73.9 Peripheral vascular disease, unspecified ==

== ENCOUNTER 2022-04-01 03:02 | Day surgery (SDC) | payer OTHER | END 2022-04-01 22:42 | disposition home or self-care (01) | LOC: WOUND 03:02 | DX: L97.812 Non-pressure chronic ulcer of other part of right lower leg with fat layer exposed (principal); L97.922 Non-pressure chronic ulcer of unspecified part of left lower leg with fat layer exposed; L03.115 Cellulitis of right lower limb; I87.2 Venous insufficiency (chronic) (peripheral); M79.604 Pain in right leg; I73.9 Peripheral vascular disease, unspecified ==

== ENCOUNTER 2022-04-04 01:38 | Day surgery (SDC) | payer OTHER | END 2022-04-04 23:02 | disposition home or self-care (01) | LOC: WOUND 01:38 | DX: L97.812 Non-pressure chronic ulcer of other part of right lower leg with fat layer exposed (principal); L97.822 Non-pressure chronic ulcer of other part of left lower leg with fat layer exposed; L03.115 Cellulitis of right lower limb; L02.415 Cutaneous abscess of right lower limb; I87.2 Venous insufficiency (chronic) (peripheral); M79.604 Pain in right leg; I73.9 Peripheral vascular disease, unspecified; R60.0 Localized edema | CPT/HCPCS: A9270; G0463 ==

== ENCOUNTER 2022-04-08 04:47 | Day surgery (SDC) | payer OTHER ==
[~2022-04-08 04:47] MED LIST changes: -ARTHRITIS PAIN50 GM TOP; +VOLTAREN ARTHRI20 GM TOP
== END 2022-04-08 22:57 | disposition home or self-care (01) ==
LOC: WOUND 04:47
DX: L97.812 Non-pressure chronic ulcer of other part of right lower leg with fat layer exposed (principal); L97.922 Non-pressure chronic ulcer of unspecified part of left lower leg with fat layer exposed; L03.115 Cellulitis of right lower limb; L02.415 Cutaneous abscess of right lower limb; S80.11XD Contusion of right lower leg, subsequent encounter; X58.XXXD Exposure to other specified factors, subsequent encounter; I87.2 Venous insufficiency (chronic) (peripheral); M79.604 Pain in right leg; I73.9 Peripheral vascular disease, unspecified; R60.0 Localized edema

== ENCOUNTER 2022-04-11 03:59 | Day surgery (SDC) | payer OTHER ==
[~2022-04-11 03:59] MED LIST changes: +ARTHRITIS PAIN50 GM TOP; -VOLTAREN ARTHRI20 GM TOP
== END 2022-04-11 23:11 | disposition home or self-care (01) ==
LOC: WOUND
DX: L97.812 Non-pressure chronic ulcer of other part of right lower leg with fat layer exposed (principal); L97.922 Non-pressure chronic ulcer of unspecified part of left lower leg with fat layer exposed; L03.115 Cellulitis of right lower limb; L02.415 Cutaneous abscess of right lower limb; S80.11XD Contusion of right lower leg, subsequent encounter; X58.XXXD Exposure to other specified factors, subsequent encounter; I87.2 Venous insufficiency (chronic) (peripheral); I73.9 Peripheral vascular disease, unspecified; R60.0 Localized edema; M79.604 Pain in right leg

== ENCOUNTER 2022-04-15 00:35 | Day surgery (SDC) | payer OTHER | END 2022-04-15 23:00 | disposition home or self-care (01) | LOC: WOUND 00:35 | DX: L97.812 Non-pressure chronic ulcer of other part of right lower leg with fat layer exposed (principal); L97.822 Non-pressure chronic ulcer of other part of left lower leg with fat layer exposed; L03.115 Cellulitis of right lower limb; L02.415 Cutaneous abscess of right lower limb; S80.11XD Contusion of right lower leg, subsequent encounter; I87.2 Venous insufficiency (chronic) (peripheral); R60.0 Localized edema | CPT/HCPCS: A9270 ==

== ENCOUNTER 2022-04-18 00:59 | Day surgery (SDC) | payer OTHER | END 2022-04-18 23:11 | disposition home or self-care (01) | LOC: WOUND 00:59 | DX: L97.812 Non-pressure chronic ulcer of other part of right lower leg with fat layer exposed (principal); L03.115 Cellulitis of right lower limb; L02.415 Cutaneous abscess of right lower limb; S80.11XD Contusion of right lower leg, subsequent encounter; X58.XXXD Exposure to other specified factors, subsequent encounter; I87.2 Venous insufficiency (chronic) (peripheral); M79.604 Pain in right leg; I73.9 Peripheral vascular disease, unspecified; R60.0 Localized edema | CPT/HCPCS: G0463 ==

== ENCOUNTER 2022-04-21 00:18 | Day surgery (SDC) | payer OTHER ==
[~2022-04-21 00:18] MED LIST changes: -ARTHRITIS PAIN50 GM TOP; +VOLTAREN ARTHRI20 GM TOP
== END 2022-04-21 23:26 | disposition home or self-care (01) ==
LOC: WOUND 00:18
DX: I87.313 Chronic venous hypertension (idiopathic) with ulcer of bilateral lower extremity (principal); L97.812 Non-pressure chronic ulcer of other part of right lower leg with fat layer exposed; L97.822 Non-pressure chronic ulcer of other part of left lower leg with fat layer exposed; L03.115 Cellulitis of right lower limb; L02.415 Cutaneous abscess of right lower limb; S80.11XD Contusion of right lower leg, subsequent encounter; I87.2 Venous insufficiency (chronic) (peripheral); M79.604 Pain in right leg; I73.9 Peripheral vascular disease, unspecified; R60.0 Localized edema
CPT/HCPCS: A9270; G0463

== ENCOUNTER 2022-04-28 07:16 | Day surgery (SDC) | payer OTHER ==
[~2022-04-28 07:16] MED LIST changes: +ARTHRITIS PAIN50 GM TOP; -VOLTAREN ARTHRI20 GM TOP
== END 2022-04-28 23:43 | disposition home or self-care (01) ==
LOC: WOUND 07:16
DX: I87.313 Chronic venous hypertension (idiopathic) with ulcer of bilateral lower extremity (principal); L97.812 Non-pressure chronic ulcer of other part of right lower leg with fat layer exposed; L97.922 Non-pressure chronic ulcer of unspecified part of left lower leg with fat layer exposed; L03.115 Cellulitis of right lower limb; L02.415 Cutaneous abscess of right lower limb; S80.11XD Contusion of right lower leg, subsequent encounter; I87.2 Venous insufficiency (chronic) (peripheral); I73.9 Peripheral vascular disease, unspecified; R60.0 Localized edema
CPT/HCPCS: A9270; G0463

== ENCOUNTER 2022-05-05 05:35 | Day surgery (SDC) | payer OTHER | END 2022-05-05 23:28 | disposition home or self-care (01) | LOC: WOUND 05:35 | DX: I87.313 Chronic venous hypertension (idiopathic) with ulcer of bilateral lower extremity (principal); L97.812 Non-pressure chronic ulcer of other part of right lower leg with fat layer exposed; L97.822 Non-pressure chronic ulcer of other part of left lower leg with fat layer exposed; L03.115 Cellulitis of right lower limb; L02.415 Cutaneous abscess of right lower limb; I87.2 Venous insufficiency (chronic) (peripheral); S80.11XD Contusion of right lower leg, subsequent encounter; M79.604 Pain in right leg; R60.0 Localized edema | CPT/HCPCS: A9270; G0463 ==

== ENCOUNTER 2022-05-12 02:07 | Day surgery (SDC) | payer OTHER ==
[~2022-05-12 02:07] MED LIST changes: -ARTHRITIS PAIN50 GM TOP; +VOLTAREN ARTHRI20 GM TOP
[2022-05-12] MEDS ORDERED: ALPR1 PO (15:59)
[2022-05-12] MEDS ORDERED: Bentyl10 MG PO (16:02)
[2022-05-12] MEDS ORDERED: MIRALAX17 GM PO (16:04)
== END 2022-05-12 23:15 | disposition home or self-care (01) ==
LOC: WOUND 02:07
DX: I87.313 Chronic venous hypertension (idiopathic) with ulcer of bilateral lower extremity (principal); L97.812 Non-pressure chronic ulcer of other part of right lower leg with fat layer exposed; L97.822 Non-pressure chronic ulcer of other part of left lower leg with fat layer exposed; L03.115 Cellulitis of right lower limb; L02.415 Cutaneous abscess of right lower limb; S80.11XD Contusion of right lower leg, subsequent encounter; I87.2 Venous insufficiency (chronic) (peripheral); M79.604 Pain in right leg; I73.9 Peripheral vascular disease, unspecified; R60.0 Localized edema; W10.1XXD Fall (on)(from) sidewalk curb, subsequent encounter
CPT/HCPCS: G0463

== ENCOUNTER 2022-05-12 13:46 | Inpatient (IN) | payer OTHER ==
[~2022-05-12] VITALS: Ht 167.6 cm; Wt 125.6 kg
[2022-05-12 14:22] LABS: BASOPHILS ABSOLUTE AUTO 0.02 K/mm3 (0.00-0.23); BASOPHILS PERCENT AUTO 1 % (0-2); EOSINOPHILS ABSOLUTE AUTO 0.17 K/mm3 (0.00-0.68); EOSINOPHILS PERCENT AUTO 5 % (0-6); Hematocrit 33.9 % (33.0-51.0); Hemoglobin 11.3 g/dL (11.5-16.0); IMMATURE GRAN ABSOLUTE AUTO 0.03 K/mm3 (0.00-0.10); IMMATURE GRAN PERCENT AUTO 1 % (0-1); LYMPHOCYTES ABSOLUTE AUTO 0.56 K/mm3 (0.84-5.20); LYMPHOCYTES PERCENT AUTO 15 % (21-46); MONOCYTES ABSOLUTE AUTO 0.17 K/mm3 (0.16-1.47); MONOCYTES PERCENT AUTO 5 % (4-13); Mean Corpuscular HGB 33.3 pg (26.0-34.0); Mean Corpuscular HGB Conc 33.3 g/dL (31.5-36.5); Mean Corpuscular Volume 100 fL (80-100); NEUTROPHILS ABSOLUTE AUTO 2.83 K/mm3 (1.96-9.15); NEUTROPHILS PERCENT AUTO 75 % (41-73); Platelet Count 120 K/mm3 (150-400); RDW Coefficient Variation 14.5 % (11.7-14.2); RDW Standard Deviation 52.2 fL (35.1-46.3); Red Blood Cell Count 3.39 M/mm3 (3.80-5.20); White Blood Cell Count 3.78 K/mm3 (4.00-11.30)
[2022-05-12 14:47] LABS: Albumin, Blood 2.3 g/dL (3.4-5.0); Albumin/Globulin Ratio 0.5 (0.8-1.8); Bilirubin, Total 0.6 mg/dL (0.1-1.0); Bun/Creatinine Ratio 22.4 (12.0-20.0); Calcium, Blood 9.3 mg/dL (8.5-10.1); Creatinine, Blood 0.89 mg/dL (0.40-1.00); Globulin, Blood 4.3 g/dL (2.2-4.0); Potassium, Blood 4.5 mmol/L (3.5-5.5); Total Protein, Blood 6.6 g/dL (6.4-8.2)
[2022-05-12] MEDS ORDERED: ALPR1 PO (15:59)
[2022-05-12] MEDS ORDERED: Bentyl10 MG PO (16:02)
[2022-05-12] MEDS ORDERED: MIRALAX17 GM PO (16:04)
[2022-05-13 05:49] LABS: BASOPHILS PERCENT AUTO 0 % (0-2); EOSINOPHILS ABSOLUTE AUTO 0.15 K/mm3 (0.00-0.68); EOSINOPHILS PERCENT AUTO 5 % (0-6); Hematocrit 28.6 % (33.0-51.0); Hemoglobin 9.2 g/dL (11.5-16.0); IMMATURE GRAN ABSOLUTE AUTO 0.03 K/mm3 (0.00-0.10); IMMATURE GRAN PERCENT AUTO 1 % (0-1); LYMPHOCYTES ABSOLUTE AUTO 0.28 K/mm3 (0.84-5.20); LYMPHOCYTES PERCENT AUTO 9 % (21-46); MONOCYTES PERCENT AUTO 3 % (4-13); Mean Corpuscular HGB 33.3 pg (26.0-34.0); Mean Corpuscular HGB Conc 32.2 g/dL (31.5-36.5); Mean Corpuscular Volume 104 fL (80-100); Mean Platelet Volume 9.4 fL (9.1-12.4); NEUTROPHILS ABSOLUTE AUTO 2.48 K/mm3 (1.96-9.15); NEUTROPHILS PERCENT AUTO 82 % (41-73); Platelet Count 103 K/mm3 (150-400); RDW Coefficient Variation 14.4 % (11.7-14.2); RDW Standard Deviation 54.4 fL (35.1-46.3); Red Blood Cell Count 2.76 M/mm3 (3.80-5.20); White Blood Cell Count 3.04 K/mm3 (4.00-11.30)
[2022-05-13 06:15] LABS: Albumin, Blood 1.7 g/dL (3.4-5.0); Albumin/Globulin Ratio 0.5 (0.8-1.8); Bilirubin, Total 0.7 mg/dL (0.1-1.0); Bun/Creatinine Ratio 22.8 (12.0-20.0); Calcium, Blood 7.7 mg/dL (8.5-10.1); Creatinine, Blood 0.83 mg/dL (0.40-1.00); Globulin, Blood 3.5 g/dL (2.2-4.0); Potassium, Blood 4.8 mmol/L (3.5-5.5); Total Protein, Blood 5.2 g/dL (6.4-8.2)
--- NOTE | 2022-05-13 06:39 | NUR ---
PT ADMITTED WITH SEPSIS BILAT LE EXTENSIVE SCALD TYPE WOUNDS HAS LOW ALBUMIN & SHE DRANK LOTS OF WATER & DRANK ENSURES VANILLA WHEN SET UP. sHE DID NOT EAT SOFT SNACKS LEFT AT BEDSIDE. uP WITH EXTENSIVE ASSIST FALL PRECAUTIONS. oN TELE MONITOR SINUS TACH AVE RATE 100 PER TECH. MEDICATED FOR PAIN SEVERAL TIMES WITH HELPFUL EFFECT. SEE PHOTO DOC FOR EXTENSIVE BILAT LE NONHEALING WOUNDS
--- NOTE | 2022-05-13 16:38 | NUR ---
SHIFT SUMMARY PT AWAKE DURING SHIFT REPORT THIS AM, RESTING QUIETLY WATCHING TV IN BED. PT UP TO CHAIR FOR BREAKFAST AND LUNCH. UP TO BSC MOST OF THE TIME TO VOID, BUT LATER AMBULATED TO BTM FOR BM, USING FWW AND SBA. PT WANTING BACK TO BED AFTER LUNCH D/T PAIN IN LEGS FROM PRESSURE OF CHAIR. PT MEDICATED PER EMAR AND PT REQUEST. PT IS MORBIDLY OBESE WITH REDNESS AND EXTREME SWELLING TO BLE'S. WEEPING EDEMA AND WOUNDS; SEE CHART FOR PICTURES. DRSG'S REMAIN C/D/I TO PRESENT, PLACED BY NOC SHIFT THIS AM. DR DUARTE IN TO SEE PT AND WANTING PT TO STAY AT LEAST ONE MORE DAY. ORDER GIVEN TO USE HOME MEDICATION SYMBICORT. MEDICATION OBTAINED FROM SPOUSE AND SENT TO PHARMACY FOR AUTHORIZATION. IH TO START THIS EVENING PER EMAR. PT HAS BEEN SR ON TELE. REMAINS AT BS TO VISIT. DENIES FURTHER NEEDS AT THIS TIME. CALL LT IN REACH. ABLE TO MAKE NEEDS KNOWN.
--- NOTE | 2022-05-14 05:00 | NUR ---
76 year old female with morbid obesity given vancomycin to tx bilat le cellulitis in nonhealing bilat le wounds. Continues with very poor oral intake but takes ensure when setup & cued. Medicated for bilat le pain x 1 with helpful effect. extensive wounds bilat le see photodoc.
[2022-05-14 09:28] LABS: Hematocrit 30.2 % (33.0-51.0); Mean Corpuscular HGB 33.7 pg (26.0-34.0); Mean Corpuscular HGB Conc 33.1 g/dL (31.5-36.5); Mean Corpuscular Volume 102 fL (80-100); Mean Platelet Volume 9.8 fL (9.1-12.4); Platelet Count 100 K/mm3 (150-400); RDW Coefficient Variation 14.4 % (11.7-14.2); RDW Standard Deviation 53.8 fL (35.1-46.3); Red Blood Cell Count 2.97 M/mm3 (3.80-5.20); White Blood Cell Count 3.09 K/mm3 (4.00-11.30)
[2022-05-14 09:55] LABS: BAND PERCENT MAN 5 % (0-8); BASOPHILS PERCENT MAN 0 % (0-2); EOSINOPHILS ABSOLUTE MAN 0.12 K/mm3 (0.00-0.68); EOSINOPHILS PERCENT MAN 4 % (0-6); LYMPHOCYTES % ATYPICAL MANUAL 2 % (0-0); LYMPHOCYTES ABSOLUTE MAN 0.52 K/mm3 (0.84-5.20); LYMPHOCYTES PERCENT MAN 15 % (21-46); MONOCYTES ABSOLUTE MAN 0.03 K/mm3 (0.16-1.47); MONOCYTES PERCENT MAN 1 % (4-13); NEUTROPHILS ABSOLUTE MAN 2.41 K/mm3 (1.96-9.15); SEG NEUTROPHILS PERCENT MAN 73 % (41-73); TOTAL CELLS COUNTED 100
[2022-05-14 10:17] LABS: Albumin, Blood 1.7 g/dL (3.4-5.0); Albumin/Globulin Ratio 0.4 (0.8-1.8); Bilirubin, Total 0.7 mg/dL (0.1-1.0); Bun/Creatinine Ratio 24.6 (12.0-20.0); Calcium, Blood 8.5 mg/dL (8.5-10.1); Creatinine, Blood 1.22 mg/dL (0.40-1.00); Globulin, Blood 3.9 g/dL (2.2-4.0); Potassium, Blood 5.2 mmol/L (3.5-5.5); Total Protein, Blood 5.6 g/dL (6.4-8.2)
--- NOTE | 2022-05-14 16:08 | NUR ---
PT IS A/OX3. PLEASANT AND COOPERATIVE. THE PT IS UP WIT MINIMAL ASSIST TO THE CHAIR. THE PT WAS UP IN THE CHAIR FOR BREAKFAST TODAY. PT WAS MEDICATED FOR LEG, HEAD AND NECK PAIN TODAY. PT WAS ENCOURAGED TO DRINK A MODERATE AMOUNT OF FLUIDS. PTS WOUND DRESSINGS WERE REPLACED WITH CLEAN DRY DRESSINGS. PTS WAS IN TO VISIT WITH HER TODAY. CALL LIGHT IN REACH, WILL CONTINUE TO MONITOR AND ASSESS FOR CHANGES
[2022-05-14 17:33] LABS: Bun/Creatinine Ratio 22.3 (12.0-20.0); Calcium, Blood 8.3 mg/dL (8.5-10.1); Creatinine, Blood 1.48 mg/dL (0.40-1.00); Potassium, Blood 5.5 mmol/L (3.5-5.5)
[2022-05-15 09:35] LABS: Hematocrit 27.9 % (33.0-51.0); Hemoglobin 9.1 g/dL (11.5-16.0); Mean Corpuscular HGB 33.2 pg (26.0-34.0); Mean Corpuscular HGB Conc 32.6 g/dL (31.5-36.5); Mean Corpuscular Volume 102 fL (80-100); Mean Platelet Volume 10.7 fL (9.1-12.4); Platelet Count 124 K/mm3 (150-400); RDW Coefficient Variation 14.4 % (11.7-14.2); RDW Standard Deviation 52.6 fL (35.1-46.3); Red Blood Cell Count 2.74 M/mm3 (3.80-5.20); White Blood Cell Count 4.03 K/mm3 (4.00-11.30)
[2022-05-15 10:28] LABS: Bun/Creatinine Ratio 26.6 (12.0-20.0); Calcium, Blood 8.2 mg/dL (8.5-10.1); Creatinine, Blood 1.39 mg/dL (0.40-1.00); Potassium, Blood 5.7 mmol/L (3.5-5.5)
[2022-05-15 11:38] LABS: BAND PERCENT MAN 26 % (0-8); BASOPHILS PERCENT MAN 0 % (0-2); EOSINOPHILS ABSOLUTE MAN 0.32 K/mm3 (0.00-0.68); EOSINOPHILS PERCENT MAN 8 % (0-6); LYMPHOCYTES % ATYPICAL MANUAL 2 % (0-0); LYMPHOCYTES ABSOLUTE MAN 1.12 K/mm3 (0.84-5.20); LYMPHOCYTES PERCENT MAN 26 % (21-46); METAMYELOCYTE ABSOLUTE MAN 0.04 K/mm3 (0.00-0.00); METAMYELOCYTE PERCENT MAN 1 % (0-0); MONOCYTES ABSOLUTE MAN 0.12 K/mm3 (0.16-1.47); MONOCYTES PERCENT MAN 3 % (4-13); MYELOCYTE ABSOLUTE MAN 0.04 K/mm3 (0.00-0.00); MYELOCYTE PERCENT MAN 1 % (0-0); NEUTROPHILS ABSOLUTE MAN 2.33 K/mm3 (1.96-9.15); SEG NEUTROPHILS PERCENT MAN 32 % (41-73); TOTAL CELLS COUNTED 100
[2022-05-15 11:39] LABS: OTHER CELL PERCENT MAN 1 % (0-0)
[2022-05-15 14:42] LABS: Albumin, Blood 1.5 g/dL (3.4-5.0); Albumin/Globulin Ratio 0.4 (0.8-1.8); Bilirubin, Total 0.3 mg/dL (0.1-1.0); Bun/Creatinine Ratio 25.6 (12.0-20.0); Calcium, Blood 7.8 mg/dL (8.5-10.1); Creatinine, Blood 1.29 mg/dL (0.40-1.00); Globulin, Blood 3.9 g/dL (2.2-4.0); Potassium, Blood 5.4 mmol/L (3.5-5.5); Total Protein, Blood 5.4 g/dL (6.4-8.2)
--- NOTE | 2022-05-15 17:00 | NUR ---
PT A/OX3. PLEASANT AND COOPERATIVE, PT IS UP WITH MINIMAL ASSIST TO THE CHAIR AND TO THE BATHROOM. THE PT WAS UP IN THE CHAIR THROUGH BREAKFAST AND LUNCH IS NOW BACK INTO BED. LEG DRESSINGS CHANGED, PT TOLERATED WELL. PT WAS MEDICATED FOR PAIN IN LEGS X2 SO FAR THIS SHIFT. PT ENCOURAGED TO DRINK FLUIDS. FAMILY IS AT THE BEDSIDE. CALL LIGHT IN REACH. WILL CONTINUE TO MONITOR AND ASSESS FOR CHANGES
[2022-05-16] MEDS ORDERED: Pentoxifylline400 MG PO (00:39)
[2022-05-16 05:44] LABS: Hematocrit 26.9 % (33.0-51.0); Hemoglobin 8.7 g/dL (11.5-16.0); Mean Corpuscular HGB 33.2 pg (26.0-34.0); Mean Corpuscular HGB Conc 32.3 g/dL (31.5-36.5); Mean Corpuscular Volume 103 fL (80-100); Mean Platelet Volume 10.4 fL (9.1-12.4); Platelet Count 194 K/mm3 (150-400); RDW Coefficient Variation 14.6 % (11.7-14.2); RDW Standard Deviation 54.9 fL (35.1-46.3); Red Blood Cell Count 2.62 M/mm3 (3.80-5.20); White Blood Cell Count 4.65 K/mm3 (4.00-11.30)
[2022-05-16 06:07] LABS: BAND PERCENT MAN 3 % (0-8); BASOPHILS ABSOLUTE MAN 0.09 K/mm3 (0.00-0.23); BASOPHILS PERCENT MAN 2 % (0-2); EOSINOPHILS ABSOLUTE MAN 0.23 K/mm3 (0.00-0.68); EOSINOPHILS PERCENT MAN 5 % (0-6); LYMPHOCYTES % ATYPICAL MANUAL 2 % (0-0); LYMPHOCYTES ABSOLUTE MAN 1.25 K/mm3 (0.84-5.20); LYMPHOCYTES PERCENT MAN 25 % (21-46); MONOCYTES ABSOLUTE MAN 0.46 K/mm3 (0.16-1.47); MONOCYTES PERCENT MAN 10 % (4-13); SEG NEUTROPHILS PERCENT MAN 53 % (41-73); TOTAL CELLS COUNTED 100
[2022-05-16 06:13] LABS: Bun/Creatinine Ratio 24.3 (12.0-20.0); Calcium, Blood 7.8 mg/dL (8.5-10.1); Creatinine, Blood 1.07 mg/dL (0.40-1.00); Potassium, Blood 5.5 mmol/L (3.5-5.5)
--- NOTE | 2022-05-16 06:35 | NUR ---
SHIFT SUMMARY: PATIENT HAS INTERMITTENT CONFUSION THROUGH THE SHIFT. VSS, AN OCCASSIONAL ELEVEATED BP. ACCURACY OF READ IS QUESTIONALE. PATIEJNT IS ASYMPTOMATIC. PATIENT ALSO HAS INTERMITTENT LOW LEG PAIN. NORCO WAS GIVEN X1 WITH GOOD EFFECT.
[2022-05-16] MEDS ORDERED: BACTRIM DS TAB1 EAC6 PO (12:17)
--- NOTE | 2022-05-16 13:03 | NUR ---
PT DISCHARGED PT AND HER VERBALIZED UNDERSTANDING OF THE DC INSTRUCTIONS. THE PTS PRESCRIPTIONS WERE FAXED TO [facility] IN [place] THEY REQUESTED. PT WOUND DRESSINGS WERE CHANGED BEFORE DC. THE PT WAS TRANSFERED VIA WHEELCHAIR ACCOMPANIED BY HER . PT WAS STOOPING BY THE WOUND CLINIC ON HER WAY HOME FOR WOUND CARE.
--- NOTE | 2022-05-16 22:37 | NUR ---
REVIEWED PT'S INFORMATION R/T HOME MEDICATION LEFT BEHIND. SYMBICORT INHALER. CONTACTED PT, THEY WILL PICK IT UP TOMORROW.
== END 2022-05-16 12:37 | disposition home or self-care (01) | DRG 872 ==
LOC: ER 13:46 → MEDS 16:24 → ER 16:24 → MEDS 18:17
PROVIDERS: Physician Assistant; ADMIT Family Medicine
DX: A41.9 Sepsis, unspecified organism (principal); L03.116 Cellulitis of left lower limb; Z68.43 Body mass index [BMI] 50.0-59.9, adult; N17.9 Acute kidney failure, unspecified; E87.1 Hypo-osmolality and hyponatremia; D61.818 Other pancytopenia; E87.6 Hypokalemia; E66.01 Morbid (severe) obesity due to excess calories; Z88.8 Allergy status to other drugs, medicaments and biological substances; Z91.040 Latex allergy status; G47.00 Insomnia, unspecified; K21.9 Gastro-esophageal reflux disease without esophagitis; F41.3 Other mixed anxiety disorders; K58.9 Irritable bowel syndrome, unspecified; G25.81 Restless legs syndrome; G89.4 Chronic pain syndrome; I25.10 Atherosclerotic heart disease of native coronary artery without angina pectoris; E55.9 Vitamin D deficiency, unspecified; M06.9 Rheumatoid arthritis, unspecified; M35.00 Sjogren syndrome, unspecified; E78.5 Hyperlipidemia, unspecified; M19.90 Unspecified osteoarthritis, unspecified site; Z98.890 Other specified postprocedural states; Z90.721 Acquired absence of ovaries, unilateral; Z96.652 Presence of left artificial knee joint; Z90.710 Acquired absence of both cervix and uterus; Z79.899 Other long term (current) drug therapy; S31.109A Unspecified open wound of abdominal wall, unspecified quadrant without penetration into peritoneal cavity, initial encounter; I87.8 Other specified disorders of veins
CPT/HCPCS: 36415; 71046; 76705; 80048; 80053; 82607; 82746; 83605; 83880; 83930; 85025; 87040; 93005; 93010; 94640; 94664; 94760; 96365; 96366; 96372; 99285-25; A9270; G0378; J1650; J3370; J7030; J7040; J7050; J7060

== ENCOUNTER 2022-05-20 00:43 | Day surgery (SDC) | payer OTHER | END 2022-05-20 12:59 | disposition home or self-care (01) | LOC: WOUND 00:43 | DX: I87.313 Chronic venous hypertension (idiopathic) with ulcer of bilateral lower extremity (principal); L97.822 Non-pressure chronic ulcer of other part of left lower leg with fat layer exposed; L97.812 Non-pressure chronic ulcer of other part of right lower leg with fat layer exposed; L03.115 Cellulitis of right lower limb; L02.415 Cutaneous abscess of right lower limb; I87.2 Venous insufficiency (chronic) (peripheral); I73.9 Peripheral vascular disease, unspecified | CPT/HCPCS: A9270; G0463 ==

== ENCOUNTER → 2022-05-20 | Outpatient (CLI) | payer OTHER ==
[~2022-05-20] MED LIST changes: +ALPR1 PO; +BACTRIM DS TAB1 EAC6 PO; +MIRALAX17 GM PO; +Pentoxifylline400 MG PO
== END ==
LOC: LAB 16:06 → LAB SHORT 16:06
DX: R30.9 Painful micturition, unspecified (principal)
CPT/HCPCS: 87077; 87086; 87186

== ENCOUNTER 2022-05-26 03:52 | Day surgery (SDC) | payer OTHER | END 2022-05-26 23:02 | disposition home or self-care (01) | LOC: WOUND 03:52 | DX: I87.313 Chronic venous hypertension (idiopathic) with ulcer of bilateral lower extremity (principal); L97.812 Non-pressure chronic ulcer of other part of right lower leg with fat layer exposed; L97.822 Non-pressure chronic ulcer of other part of left lower leg with fat layer exposed; L03.115 Cellulitis of right lower limb; L02.415 Cutaneous abscess of right lower limb; S80.11XD Contusion of right lower leg, subsequent encounter; X58.XXXD Exposure to other specified factors, subsequent encounter; I87.2 Venous insufficiency (chronic) (peripheral); I73.9 Peripheral vascular disease, unspecified; M79.604 Pain in right leg; R60.0 Localized edema; M06.9 Rheumatoid arthritis, unspecified | CPT/HCPCS: G0463 ==

== ENCOUNTER 2022-06-02 00:31 | Day surgery (SDC) | payer OTHER | END 2022-06-03 00:47 | disposition home or self-care (01) | LOC: WOUND 00:31 | DX: I70.238 Atherosclerosis of native arteries of right leg with ulceration of other part of lower leg (principal); L97.812 Non-pressure chronic ulcer of other part of right lower leg with fat layer exposed; I70.248 Atherosclerosis of native arteries of left leg with ulceration of other part of lower leg; L97.822 Non-pressure chronic ulcer of other part of left lower leg with fat layer exposed; I70.25 Atherosclerosis of native arteries of other extremities with ulceration; L98.492 Non-pressure chronic ulcer of skin of other sites with fat layer exposed; L97.819 Non-pressure chronic ulcer of other part of right lower leg with unspecified severity; I89.0 Lymphedema, not elsewhere classified; I87.313 Chronic venous hypertension (idiopathic) with ulcer of bilateral lower extremity; L03.115 Cellulitis of right lower limb; L02.415 Cutaneous abscess of right lower limb; I87.2 Venous insufficiency (chronic) (peripheral) | CPT/HCPCS: A9270; G0463 ==

== ENCOUNTER → 2022-06-06 | Outpatient (CLI) | payer OTHER ==
[2022-06-06 15:52] LABS: Hematocrit 31.8 % (33.0-51.0); Hemoglobin 10.3 g/dL (11.5-16.0)
[2022-06-06 15:58] LABS: Bun/Creatinine Ratio 24.1 (12.0-20.0); Creatinine, Blood 0.79 mg/dL (0.40-1.00); Potassium, Blood 4.4 mmol/L (3.5-5.5)
== END ==
LOC: LAB 15:44 → LAB SHORT 15:44
PROVIDERS: Physician Assistant
DX: N17.9 Acute kidney failure, unspecified (principal); D64.9 Anemia, unspecified
CPT/HCPCS: 80048; 85014; 85018

== ENCOUNTER 2022-06-09 01:29 | Day surgery (SDC) | payer OTHER | END 2022-06-09 23:18 | disposition home or self-care (01) | LOC: WOUND | DX: I87.313 Chronic venous hypertension (idiopathic) with ulcer of bilateral lower extremity (principal); L97.812 Non-pressure chronic ulcer of other part of right lower leg with fat layer exposed; L97.822 Non-pressure chronic ulcer of other part of left lower leg with fat layer exposed; L03.115 Cellulitis of right lower limb; L02.415 Cutaneous abscess of right lower limb; S80.11XD Contusion of right lower leg, subsequent encounter; I87.2 Venous insufficiency (chronic) (peripheral); M79.604 Pain in right leg; I73.9 Peripheral vascular disease, unspecified; R60.0 Localized edema | CPT/HCPCS: G0463 ==

== ENCOUNTER 2022-06-18 06:33 | Day surgery (SDC) | payer OTHER | END 2022-06-18 23:31 | disposition home or self-care (01) | LOC: WOUND 06:33 | DX: I87.313 Chronic venous hypertension (idiopathic) with ulcer of bilateral lower extremity (principal); L97.812 Non-pressure chronic ulcer of other part of right lower leg with fat layer exposed; L97.922 Non-pressure chronic ulcer of unspecified part of left lower leg with fat layer exposed; L03.115 Cellulitis of right lower limb; L02.415 Cutaneous abscess of right lower limb; S80.11XD Contusion of right lower leg, subsequent encounter; M79.604 Pain in right leg; R60.0 Localized edema | CPT/HCPCS: G0463 ==

== ENCOUNTER 2022-06-23 01:10 | Day surgery (SDC) | payer OTHER | END 2022-06-23 22:00 | disposition home or self-care (01) | LOC: WOUND 01:10 | DX: I87.313 Chronic venous hypertension (idiopathic) with ulcer of bilateral lower extremity (principal); L97.812 Non-pressure chronic ulcer of other part of right lower leg with fat layer exposed; L97.922 Non-pressure chronic ulcer of unspecified part of left lower leg with fat layer exposed; L03.115 Cellulitis of right lower limb; L02.414 Cutaneous abscess of left upper limb; S80.11XD Contusion of right lower leg, subsequent encounter; I87.2 Venous insufficiency (chronic) (peripheral); M79.604 Pain in right leg; I73.9 Peripheral vascular disease, unspecified | CPT/HCPCS: G0463 ==

== ENCOUNTER 2022-06-30 01:00 | Day surgery (SDC) | payer OTHER | END 2022-06-30 23:34 | disposition home or self-care (01) | LOC: WOUND 01:00 | DX: I87.313 Chronic venous hypertension (idiopathic) with ulcer of bilateral lower extremity (principal); L97.822 Non-pressure chronic ulcer of other part of left lower leg with fat layer exposed; L97.812 Non-pressure chronic ulcer of other part of right lower leg with fat layer exposed; L03.115 Cellulitis of right lower limb; L02.415 Cutaneous abscess of right lower limb; S80.11XD Contusion of right lower leg, subsequent encounter; I87.2 Venous insufficiency (chronic) (peripheral); M79.604 Pain in right leg; R60.0 Localized edema | CPT/HCPCS: A9270; G0463 ==

== ENCOUNTER 2022-08-01 01:21 | Day surgery (SDC) | payer OTHER | END 2022-08-01 23:28 | disposition home or self-care (01) | LOC: WOUND 01:21 | DX: I87.313 Chronic venous hypertension (idiopathic) with ulcer of bilateral lower extremity (principal); L97.812 Non-pressure chronic ulcer of other part of right lower leg with fat layer exposed; L97.922 Non-pressure chronic ulcer of unspecified part of left lower leg with fat layer exposed; L03.115 Cellulitis of right lower limb; L02.415 Cutaneous abscess of right lower limb; S80.11XD Contusion of right lower leg, subsequent encounter; I87.2 Venous insufficiency (chronic) (peripheral) | CPT/HCPCS: A9270 ==

== ENCOUNTER 2022-08-08 00:46 | Day surgery (SDC) | payer OTHER | END 2022-08-08 23:22 | disposition home or self-care (01) | LOC: WOUND 00:46 | DX: I87.313 Chronic venous hypertension (idiopathic) with ulcer of bilateral lower extremity (principal); L97.812 Non-pressure chronic ulcer of other part of right lower leg with fat layer exposed; L97.922 Non-pressure chronic ulcer of unspecified part of left lower leg with fat layer exposed; L97.522 Non-pressure chronic ulcer of other part of left foot with fat layer exposed; L03.115 Cellulitis of right lower limb; L02.415 Cutaneous abscess of right lower limb; S80.11XD Contusion of right lower leg, subsequent encounter; I87.2 Venous insufficiency (chronic) (peripheral); M79.604 Pain in right leg; I73.9 Peripheral vascular disease, unspecified; R60.0 Localized edema; M06.9 Rheumatoid arthritis, unspecified | CPT/HCPCS: A9270; G0463 ==

== ENCOUNTER 2022-08-14 03:53 | Day surgery (SDC) | payer OTHER | END 2022-08-14 23:03 | disposition home or self-care (01) | LOC: WOUND 03:53 | DX: I87.313 Chronic venous hypertension (idiopathic) with ulcer of bilateral lower extremity (principal); L97.812 Non-pressure chronic ulcer of other part of right lower leg with fat layer exposed; L97.822 Non-pressure chronic ulcer of other part of left lower leg with fat layer exposed; L97.522 Non-pressure chronic ulcer of other part of left foot with fat layer exposed; L03.115 Cellulitis of right lower limb; L02.415 Cutaneous abscess of right lower limb; S80.11XD Contusion of right lower leg, subsequent encounter; I87.2 Venous insufficiency (chronic) (peripheral); M79.604 Pain in right leg; I73.9 Peripheral vascular disease, unspecified; R60.0 Localized edema; M06.9 Rheumatoid arthritis, unspecified | CPT/HCPCS: 87070; 87075; 87077; 87186; 87205; A9270 ==

== ENCOUNTER 2022-08-22 10:15 | Day surgery (SDC) | payer OTHER | END 2022-08-22 23:24 | disposition home or self-care (01) | LOC: WOUND 10:15 | DX: I87.313 Chronic venous hypertension (idiopathic) with ulcer of bilateral lower extremity (principal); L97.812 Non-pressure chronic ulcer of other part of right lower leg with fat layer exposed; L97.922 Non-pressure chronic ulcer of unspecified part of left lower leg with fat layer exposed; L03.115 Cellulitis of right lower limb; L02.415 Cutaneous abscess of right lower limb; I87.2 Venous insufficiency (chronic) (peripheral); I73.9 Peripheral vascular disease, unspecified; R60.0 Localized edema | CPT/HCPCS: A9270 ==

== ENCOUNTER 2022-08-29 00:43 | Day surgery (SDC) | payer OTHER | END 2022-08-29 22:51 | disposition home or self-care (01) | LOC: WOUND 00:43 | DX: I87.313 Chronic venous hypertension (idiopathic) with ulcer of bilateral lower extremity (principal); L97.812 Non-pressure chronic ulcer of other part of right lower leg with fat layer exposed; L97.922 Non-pressure chronic ulcer of unspecified part of left lower leg with fat layer exposed; L03.115 Cellulitis of right lower limb; L02.415 Cutaneous abscess of right lower limb; S80.11XD Contusion of right lower leg, subsequent encounter; I87.2 Venous insufficiency (chronic) (peripheral); M79.604 Pain in right leg; I73.9 Peripheral vascular disease, unspecified; R60.0 Localized edema; M06.9 Rheumatoid arthritis, unspecified ==

== ENCOUNTER 2022-09-03 01:18 | Day surgery (SDC) | payer OTHER | END 2022-09-03 23:13 | disposition home or self-care (01) | LOC: WOUND 01:18 | DX: I87.313 Chronic venous hypertension (idiopathic) with ulcer of bilateral lower extremity (principal); L97.812 Non-pressure chronic ulcer of other part of right lower leg with fat layer exposed; L97.922 Non-pressure chronic ulcer of unspecified part of left lower leg with fat layer exposed; L03.115 Cellulitis of right lower limb; L02.415 Cutaneous abscess of right lower limb; I87.2 Venous insufficiency (chronic) (peripheral); I73.9 Peripheral vascular disease, unspecified | CPT/HCPCS: A9270; G0463 ==

== ENCOUNTER 2022-09-12 02:19 | Day surgery (SDC) | payer OTHER | END 2022-09-12 22:57 | disposition home or self-care (01) | LOC: WOUND 02:19 | DX: I87.313 Chronic venous hypertension (idiopathic) with ulcer of bilateral lower extremity (principal); L97.822 Non-pressure chronic ulcer of other part of left lower leg with fat layer exposed; L97.812 Non-pressure chronic ulcer of other part of right lower leg with fat layer exposed; L03.115 Cellulitis of right lower limb; L02.415 Cutaneous abscess of right lower limb; I87.2 Venous insufficiency (chronic) (peripheral); I73.9 Peripheral vascular disease, unspecified | CPT/HCPCS: A9270 ==

== ENCOUNTER 2022-09-19 00:52 | Day surgery (SDC) | payer OTHER | END 2022-09-19 23:15 | disposition home or self-care (01) | LOC: WOUND 00:52 | DX: I87.313 Chronic venous hypertension (idiopathic) with ulcer of bilateral lower extremity (principal); L97.812 Non-pressure chronic ulcer of other part of right lower leg with fat layer exposed; L97.922 Non-pressure chronic ulcer of unspecified part of left lower leg with fat layer exposed; L03.115 Cellulitis of right lower limb; L02.415 Cutaneous abscess of right lower limb; S80.11XD Contusion of right lower leg, subsequent encounter; I87.2 Venous insufficiency (chronic) (peripheral); M79.604 Pain in right leg; I73.9 Peripheral vascular disease, unspecified; R60.0 Localized edema | CPT/HCPCS: A9270 ==

== ENCOUNTER 2022-09-29 00:46 | Day surgery (SDC) | payer OTHER | END 2022-09-29 22:54 | disposition home or self-care (01) | LOC: WOUND 00:46 | DX: I87.313 Chronic venous hypertension (idiopathic) with ulcer of bilateral lower extremity (principal); L97.812 Non-pressure chronic ulcer of other part of right lower leg with fat layer exposed; L97.822 Non-pressure chronic ulcer of other part of left lower leg with fat layer exposed; L03.115 Cellulitis of right lower limb; L02.415 Cutaneous abscess of right lower limb; S80.11XD Contusion of right lower leg, subsequent encounter; I87.2 Venous insufficiency (chronic) (peripheral); I73.9 Peripheral vascular disease, unspecified; R60.0 Localized edema; X58.XXXD Exposure to other specified factors, subsequent encounter | CPT/HCPCS: G0463 ==

== ENCOUNTER 2022-10-06 02:00 | Day surgery (SDC) | payer OTHER | END 2022-10-06 23:09 | disposition home or self-care (01) | LOC: WOUND 02:00 | DX: I87.313 Chronic venous hypertension (idiopathic) with ulcer of bilateral lower extremity (principal); L97.812 Non-pressure chronic ulcer of other part of right lower leg with fat layer exposed; L97.922 Non-pressure chronic ulcer of unspecified part of left lower leg with fat layer exposed; L03.115 Cellulitis of right lower limb; S80.11XD Contusion of right lower leg, subsequent encounter; I73.9 Peripheral vascular disease, unspecified | CPT/HCPCS: A9270; G0463 ==

== ENCOUNTER 2022-10-16 04:11 | Day surgery (SDC) | payer OTHER ==
[2022-10-16] MEDS ORDERED: HYDROCODONE-AC1 EAC7 PO (17:19)
[2022-10-16] MEDS ORDERED: Cipro500 MG PO (17:19)
[2022-10-16] MEDS ORDERED: NYSTRIT TOP (17:19)
[2022-10-16] MEDS ORDERED: METR250 PO (17:19)
[2022-10-16] MEDS ORDERED: BENAZEPRIL HCL20 M4 PO (17:21)
[2022-10-16] MEDS ORDERED: Pulmicort Fle180 MCG INH (17:21)
[2022-10-16] MEDS ORDERED: BUME2 PO (17:21)
[2022-10-17] MEDS ORDERED: FOLI1 PO (11:35)
[2022-10-17] MEDS ORDERED: ONDA4 PO (11:36)
[2022-10-17] MEDS ORDERED: Bentyl10 MG PO (11:37)
[2022-10-17] MEDS ORDERED: Voltaren100 GM TOP (11:38)
[2022-10-17] MEDS ORDERED: ALPR.25 PO (11:38)
[2022-10-17] MEDS ORDERED: ENBREL50 MG/1 M2 SC (11:40)
[2022-10-17] MEDS ORDERED: POTA10T PO (11:40)
[2022-10-17] MEDS ORDERED: LIDO5TO TOP (11:40)
[2022-10-17] MEDS ORDERED: HYDCOR2.5C PR (11:41)
[2022-10-17] MEDS ORDERED: MOBIC15 MG PO (18:42)
== END 2022-10-16 22:49 | disposition home or self-care (01) ==
LOC: WOUND 04:11
DX: I87.303 Chronic venous hypertension (idiopathic) without complications of bilateral lower extremity (principal); L97.812 Non-pressure chronic ulcer of other part of right lower leg with fat layer exposed; L97.822 Non-pressure chronic ulcer of other part of left lower leg with fat layer exposed; I87.2 Venous insufficiency (chronic) (peripheral); L03.115 Cellulitis of right lower limb; L02.415 Cutaneous abscess of right lower limb; I73.9 Peripheral vascular disease, unspecified
CPT/HCPCS: G0463

== ENCOUNTER 2022-10-16 15:14 | Inpatient (IN) | payer OTHER ==
[~2022-10-16] VITALS: Ht 170.2 cm; Wt 114.0 kg
[2022-10-16 15:50] LABS: BASOPHILS ABSOLUTE AUTO 0.02 K/mm3 (0.00-0.23); BASOPHILS PERCENT AUTO 0 % (0-2); EOSINOPHILS ABSOLUTE AUTO 0.07 K/mm3 (0.00-0.68); EOSINOPHILS PERCENT AUTO 1 % (0-6); Hematocrit 36.6 % (33.0-51.0); Hemoglobin 11.8 g/dL (11.5-16.0); IMMATURE GRAN ABSOLUTE AUTO 0.14 K/mm3 (0.00-0.10); IMMATURE GRAN PERCENT AUTO 1 % (0-1); LYMPHOCYTES PERCENT AUTO 8 % (21-46); MONOCYTES ABSOLUTE AUTO 0.85 K/mm3 (0.16-1.47); MONOCYTES PERCENT AUTO 8 % (4-13); Mean Corpuscular HGB 29.6 pg (26.0-34.0); Mean Corpuscular HGB Conc 32.2 g/dL (31.5-36.5); Mean Corpuscular Volume 92 fL (80-100); Mean Platelet Volume 8.8 fL (9.1-12.4); NEUTROPHILS ABSOLUTE AUTO 8.51 K/mm3 (1.96-9.15); NEUTROPHILS PERCENT AUTO 82 % (41-73); NRBC ABSOLUTE 0.02 K/mm3 (0.00-0.02); NRBC Auto 0.2 /100 WBC (0.0-0.2); Platelet Count 450 K/mm3 (150-400); RDW Coefficient Variation 15.4 % (11.7-14.2); RDW Standard Deviation 51.4 fL (35.1-46.3); Red Blood Cell Count 3.98 M/mm3 (3.80-5.20); White Blood Cell Count 10.39 K/mm3 (4.00-11.30)
[2022-10-16 16:45] LABS: Albumin/Globulin Ratio 0.4 (0.8-1.8); Bilirubin, Total 0.4 mg/dL (0.1-1.0); Bun/Creatinine Ratio 28.9 (12.0-20.0); Calcium, Blood 9.5 mg/dL (8.5-10.1); Creatinine, Blood 2.77 mg/dL (0.40-1.00); Globulin, Blood 5.3 g/dL (2.2-4.0); Potassium, Blood 7.4 mmol/L (3.5-5.5); Total Protein, Blood 7.3 g/dL (6.4-8.2)
[2022-10-16] MEDS ORDERED: Cipro500 MG PO (17:19)
[2022-10-16] MEDS ORDERED: NYSTRIT TOP (17:19)
[2022-10-16] MEDS ORDERED: METR250 PO (17:19)
[2022-10-16] MEDS ORDERED: HYDROCODONE-AC1 EAC7 PO (17:19)
[2022-10-16] MEDS ORDERED: BUME2 PO (17:21)
[2022-10-16] MEDS ORDERED: BENAZEPRIL HCL20 M4 PO (17:21)
[2022-10-16] MEDS ORDERED: Pulmicort Fle180 MCG INH (17:21)
[2022-10-16 20:08] LABS: Source, Urine Straight Cath
[2022-10-16 20:13] LABS: Appearance, Urine Hazy (Clear); Bilirubin, Urine Neg (Neg); Blood, Urine 1+ (Neg); Color, Urine Amber (P-Yellow); Glucose Qualitative, Urine Neg (Neg); Ketones, Urine Neg (Neg); Leukocyte Esterase, Urine 3+ (Neg); Nitrite, Urine Neg (Neg); Protein, Urine 1+ (Neg); Urobilinogen, Urine NORM (Normal)
[2022-10-16 20:22] LABS: Hyaline Casts 0-2 /lpf (0-2)
[2022-10-16 20:23] LABS: Bacteria Mod /hpf; Red Blood Cells, Urine 0-2 /hpf (0-2); Squamous Epithelial Cells Few /hpf (Few); Yeast/Fungi Urine Many /hpf
[2022-10-16 20:32] LABS: Magnesium, Blood 1.8 mg/dL (1.6-2.4)
[2022-10-16 20:40] LABS: Bun/Creatinine Ratio 29.9 (12.0-20.0); Calcium, Blood 9.4 mg/dL (8.5-10.1); Creatinine, Blood 2.64 mg/dL (0.40-1.00); Phosphorus, Blood 5.3 mg/dL (2.5-4.9); Potassium, Blood 6.5 mmol/L (3.5-5.5)
--- NOTE | 2022-10-16 23:00 | NUR ---
TRANSFER NOTE/PATIENT UPDATE THIS RN RECEIVED REPORT VIA TELEPHONE FROM DEVIN CEBALLOS IN THE ED. PATIENT TRANSFERRED TO UNIT AT 2034. PATIENT NOTED TO BE MOANING AND TACHYPNEIC UPON ARRIVAL STATING THAT SHE WAS HAVING CRAMPING IN BOTH LEGS. PATIENT ALERT AND ORIENTED X3 WITH CONFUSION ABOUT THE DATE/TIME. MEDICATED PER EMAR FOR PAIN. WOUND CARE PICTURES IN CHART. MEPIPLEX PLACED ON REDDENED COCCYX AND PRESSURE ULCER ON LEFT BUTTOCKS. PATIENT IS A WOUND CENTER PATIENT FOR WOUNDS ON BLE. WOUNDS UNDRESSED, PHOTOGRAPHED, AND REDRESSED. PATIENT CONTINUES TO REPORT UNCHANGED SEVERE PAIN DESPITE MEDICATIONS. CRITICAL POTASSIUM RESULT OF 6.5 REPORTED TO MD HOGAN. NEW ORDERS PLACED BY MD HOGAN. ORDER FOR PATIENT'S HOME DOSE OF BEDTIME TRAZADONE. PATIENT UNSURE OF OTHER MEDICATIONS AND STATES THAT HER WILL BRING IN AN UPDATED LIST TOMORROW MORNING. MEDICATED PER EMAR AND NEW ORDERS. BP STABLE AT THIS TIME. LR INFUSING PER EMAR. SINUS TACH ON THE MONITOR WITH HR 110-120'S. PATIENT CONTINUES TO BE MOANING AND RESTLESS AT THIS TIME AND ASKING THIS RN TO GET OUT OF BED. PATIENT EDUCATED AND BED ALARM ON FOR SAFETY. TEMPERATURE LOW AT 96.0-96.8 AT THIS TIME. BED IN LOWEST POSITION AND CALL LIGHT WITHIN REACH. THIS RN CONTINUING TO MEDICATE PER EMAR AND PROVIDE NONPHARMACOLOGIC INTERVENTIONS FOR PAIN MANAGEMENT. THIS RN WILL REVIEW CHART AND CONTINUE TO MONITOR AND PROVIDE INTERVENTIONS NEEDED/ORDERED.
[2022-10-17 00:40] LABS: Calcium, Blood 8.9 mg/dL (8.5-10.1); Creatinine, Blood 2.47 mg/dL (0.40-1.00); Potassium, Blood 6.3 mmol/L (3.5-5.5)
[2022-10-17 04:31] LABS: BASOPHILS ABSOLUTE AUTO 0.01 K/mm3 (0.00-0.23); BASOPHILS PERCENT AUTO 0 % (0-2); EOSINOPHILS ABSOLUTE AUTO 0.11 K/mm3 (0.00-0.68); EOSINOPHILS PERCENT AUTO 1 % (0-6); Hematocrit 31.4 % (33.0-51.0); Hemoglobin 10.5 g/dL (11.5-16.0); IMMATURE GRAN PERCENT AUTO 1 % (0-1); LYMPHOCYTES ABSOLUTE AUTO 0.87 K/mm3 (0.84-5.20); LYMPHOCYTES PERCENT AUTO 9 % (21-46); MONOCYTES ABSOLUTE AUTO 1.21 K/mm3 (0.16-1.47); MONOCYTES PERCENT AUTO 12 % (4-13); Mean Corpuscular HGB 29.7 pg (26.0-34.0); Mean Corpuscular HGB Conc 33.4 g/dL (31.5-36.5); Mean Corpuscular Volume 89 fL (80-100); Mean Platelet Volume 8.7 fL (9.1-12.4); NEUTROPHILS ABSOLUTE AUTO 7.73 K/mm3 (1.96-9.15); NEUTROPHILS PERCENT AUTO 77 % (41-73); Platelet Count 364 K/mm3 (150-400); RDW Coefficient Variation 15.2 % (11.7-14.2); RDW Standard Deviation 48.7 fL (35.1-46.3); Red Blood Cell Count 3.53 M/mm3 (3.80-5.20); White Blood Cell Count 10.03 K/mm3 (4.00-11.30)
[2022-10-17 04:56] LABS: Magnesium, Blood 1.6 mg/dL (1.6-2.4)
[2022-10-17 04:57] LABS: Albumin, Blood 1.5 g/dL (3.4-5.0); Albumin/Globulin Ratio 0.4 (0.8-1.8); Bilirubin, Total 0.3 mg/dL (0.1-1.0); Bun/Creatinine Ratio 31.5 (12.0-20.0); Creatinine, Blood 2.22 mg/dL (0.40-1.00); Globulin, Blood 4.2 g/dL (2.2-4.0); Potassium, Blood 5.9 mmol/L (3.5-5.5); Total Protein, Blood 5.7 g/dL (6.4-8.2)
--- NOTE | 2022-10-17 05:52 | NUR ---
SHIFT SUMMARY PATIENT CONTINUES TO BE ALERT/LETHARGIC AND ORIENTED X3. WITH CONFUSION ABOUT DATE/TIME. THIS RN WAS UNABLE TO COMPLETE MED REC DUE TO PATIENT STATING SHE DID NOT KNOW WHAT MEDICATIONS SHE TAKES AT HOME, SHE STATED THAT HER HAS A LIST OF HER MEDICATIONS AT HOME. PATIENT UNSURE OF ALLERGIES. THIS RN SPOT CHECKED GLUCOSE DURING THIS SHIFT. GLUCOSE IN THE 70'S SINCE COMING TO THE UNIT. PATIENT ENCOURAGED TO DRINK JUICE WHEN AWAKE ENOUGH. THIS RN NOTED THAT THE PATIENT EXHIBITED GURGLING/COUGHING AROUND 0500 WHEN DRINKING JUICE. PATIENT STATED TO THIS RN "I HAVE HAD A HARD TIME DRINKING/EATING THINGS LATELY". THIS RN TO KEEP PATIENT NPO AT THIS TIME DUE TO ASPIRATION RISK. PATIENT WTIH STABLE BP. ST ON THE MONITOR WITH HR 120'S. AFEBRILE. SPO2 >90% ON RA. TACHYPNEA NOTED. PATIENT DENIES SOB BUT STATES 10/10 LEG PAIN DESPITE MEDICATIONS FOR PAIN STATING THAT THE MORPHINE AND HYDROCODONE "DIDN'T HELP AT ALL". MENDOZA CATHETER PATENT AND DRAINING TO GRAVITY. SHEN/CATH CARE DONE. LR INFUSING PER EMAR. BED IN LOWEST POSITION AND CALL LIGHT IN REACH. BED ALARM ON. THIS RN WILL CONTINUE TO MONITOR UNTIL SHIFT CHANGE AT 0700.
[2022-10-17] MEDS ORDERED: FOLI1 PO (11:35)
[2022-10-17] MEDS ORDERED: ONDA4 PO (11:36)
[2022-10-17] MEDS ORDERED: Bentyl10 MG PO (11:37)
[2022-10-17] MEDS ORDERED: Voltaren100 GM TOP (11:38)
[2022-10-17] MEDS ORDERED: ALPR.25 PO (11:38)
[2022-10-17] MEDS ORDERED: POTA10T PO (11:40)
[2022-10-17] MEDS ORDERED: ENBREL50 MG/1 M2 SC (11:40)
[2022-10-17] MEDS ORDERED: LIDO5TO TOP (11:40)
[2022-10-17] MEDS ORDERED: HYDCOR2.5C PR (11:41)
[2022-10-17 11:51] LABS: Bun/Creatinine Ratio 38.2 (12.0-20.0); Calcium, Blood 8.8 mg/dL (8.5-10.1); Creatinine, Blood 1.65 mg/dL (0.40-1.00); Potassium, Blood 5.1 mmol/L (3.5-5.5)
[2022-10-17] MEDS ORDERED: MOBIC15 MG PO (18:42)
--- NOTE | 2022-10-17 18:47 | NUR ---
shift summary Pt alert, oriented to self, place, family. Intermittantly confused. lethargic middle of day, currently alert, sitting up in bed. and daughter at bedside most of day. sp02>90% on ra. Telemetry showed sinus tach, hr mostly 130's. Calls placed to day shift MD for home medications to be ordered for rate control. No orders given. Call placed to MD Rutherford this evening for rate control, medications ordered per home med req. Pt c/o of r hip pain, medicated per emar. Velazquez catheter draining yellow urine to gravity. no bm this shift. attends changed, cream applied to groin area, area red/excoriated. pt had difficult time swallowing pill this am. Did not seem to be able to swallow it down with water. Pt's states due to dry mouth. Speech eval placed. Speech therapist evaluated pt, recommends meds w/ applesauce, mechanical soft diet. Pt repositioned q2h. lift sheet placed under pt, pts states she spends most her days at home in recliner. cbg's stable. call light in reach.
[2022-10-17 23:58] LABS: Bun/Creatinine Ratio 39.3 (12.0-20.0); Calcium, Blood 8.6 mg/dL (8.5-10.1); Creatinine, Blood 1.07 mg/dL (0.40-1.00); Potassium, Blood 4.9 mmol/L (3.5-5.5)
[2022-10-18 04:23] LABS: BASOPHILS ABSOLUTE AUTO 0.01 K/mm3 (0.00-0.23); BASOPHILS PERCENT AUTO 0 % (0-2); EOSINOPHILS ABSOLUTE AUTO 0.23 K/mm3 (0.00-0.68); EOSINOPHILS PERCENT AUTO 3 % (0-6); Hematocrit 30.4 % (33.0-51.0); Hemoglobin 9.9 g/dL (11.5-16.0); IMMATURE GRAN ABSOLUTE AUTO 0.15 K/mm3 (0.00-0.10); IMMATURE GRAN PERCENT AUTO 2 % (0-1); LYMPHOCYTES ABSOLUTE AUTO 1.26 K/mm3 (0.84-5.20); LYMPHOCYTES PERCENT AUTO 14 % (21-46); MONOCYTES ABSOLUTE AUTO 0.93 K/mm3 (0.16-1.47); MONOCYTES PERCENT AUTO 10 % (4-13); Mean Corpuscular HGB 29.2 pg (26.0-34.0); Mean Corpuscular HGB Conc 32.6 g/dL (31.5-36.5); Mean Corpuscular Volume 90 fL (80-100); Mean Platelet Volume 8.7 fL (9.1-12.4); NEUTROPHILS ABSOLUTE AUTO 6.45 K/mm3 (1.96-9.15); NEUTROPHILS PERCENT AUTO 71 % (41-73); Platelet Count 329 K/mm3 (150-400); RDW Coefficient Variation 15.2 % (11.7-14.2); Red Blood Cell Count 3.39 M/mm3 (3.80-5.20); White Blood Cell Count 9.03 K/mm3 (4.00-11.30)
[2022-10-18 04:55] LABS: Alanine Aminotransfer (ALT/SGP 14 U/L (12-78); Albumin, Blood 1.5 g/dL (3.4-5.0); Albumin/Globulin Ratio 0.4 (0.8-1.8); Alk Phos 66 U/L (50-136); Anion Gap Unable to Calculate mmol/L (6-16); Aspartate Aminotrans (AST/SGOT 20 U/L (12-37); Bilirubin, Total 0.3 mg/dL (0.1-1.0); Blood Urea Nitrogen 42 mg/dL (8-24); Bun/Creatinine Ratio 43.3 (12.0-20.0); CO2, Blood 24 mmol/L (21-32); Calcium, Blood 8.6 mg/dL (8.5-10.1); Chloride, Blood 106 mmol/L (98-108); Creatinine, Blood 0.97 mg/dL (0.40-1.00); Globulin, Blood 4.1 g/dL (2.2-4.0); Glomerular Filtration Rate 61 (60-); Glucose, Blood 101 mg/dL (70-99); Potassium, Blood 4.4 mmol/L (3.5-5.5); Sodium, Blood 129 mmol/L (136-145); Total Protein, Blood 5.6 g/dL (6.4-8.2)
--- NOTE | 2022-10-18 05:37 | NUR ---
SHIFT SUMMARY PT A&Ox2-3, UNSURE OT DATE/TIME AND SOMETIMES LOCATION. INTERMITENT CONFUSION/LETHARGIC. PT CURRENTLY SLEEPING HEAVILY, BUT AROUSABLE AND ANSWERING QUESTIONS APPROPRIATELY. BP STABLE, PT REMAINED IN SR, 70-100's, TACHING UP TO 130's AT TIMES, DENIES CP/PRESSURE. SpO2> 92% RA, DENIES SOB, RR 17-24 THROUGHOUT SHIFT. CORE TEMP AT 0400 WAS 95.9, PLACED WARM BLANKETS AND BODY LENGTH K-PAD. CURRENT CORE TEMP IS 96.2, PT PUSHED BLANKETS DOWN AND STATED THAT SHE FELT WARM, THIS RN EXPLAINED WHY WE NEEDED TO KEEP THE BLANKETS ON AND PT WAS RECEPTIVE TO THIS. MENDOZA CATHETER IN PLACE, PATENT, DRAINING TO GRTAVITY. WOUND CARE PROVIDED AND ALL DRESSINGS CHANGED. NO OTHER EVENTS THIS SHIFT, WILL REPORT TO ONCOMING RN.
[2022-10-18 12:54] LABS: Bun/Creatinine Ratio 39.9 (12.0-20.0); Calcium, Blood 8.6 mg/dL (8.5-10.1); Creatinine, Blood 0.83 mg/dL (0.40-1.00); Potassium, Blood 3.9 mmol/L (3.5-5.5)
--- NOTE | 2022-10-18 16:26 | NUR ---
LOW CBG PT HAD AFTERNOON CBG OF 42. CALL PLACED TO MD CABRERA. MD CABRERA W/ ORDERS FOR 1 AMP D50 FOR BLOOD SUGARS LESS THAN 60. D50 ADMINISTERED TO PT. WILL RECHECK BLOOD SUGAR.
[2022-10-18 18:24] LABS: Base Excess Venous -0.4 mmol/L; Bicarbonate Venous 23.7 mmol/L (24.0-30.0); PCO2 Venous 46.4 mmHg (38-42); pH Blood Venous 7.35 (7.34-7.37)
--- NOTE | 2022-10-18 18:48 | NUR ---
SHIFT SUMMARY PT ALERT, SOMEWHAT ORIENTED. MENTATION IMPROVING FROM PREVIOUS DAY. PT ALERT IN AM, EXHAUSTED IN EVENING FROM DAYS EVENTS. SP02>90% ON RA. TELEMETRY SHOWED SINUS RHYTHM/SINUS TACH, HR 60'S-120'S. VSS. MENDOZA CATHETER DRAINING YELLOW URINE TO GRAVITY. HAD ONE LARGE SOFT BROWN BM ON BEDPAN THIS AFTERNOON. C/O OF PAIN/RESTLESS LEG. MEDICATED PER EMAR. WORKED W/ PT, ABLE TO STAND AT SIDE OF BED BRIEFLY. LEG DRESSINGS CHANGED FOR WOUNDS THIS AM. DID NOT EAT VERY MUCH TODAY, STATES MOUTH SORE. CBG LOW THIS AFTERNOON, SEE PREVIOUS NOTE. INCREASED TO 119 CURRENTLY. PT LETHARGIC THIS EVENING. CALL PLACED TO MD CABRERA, MD CABRERA W/ ORDERS FOR VBG, SEE RESULTS. PT REPOSITIONED Q2H. AND DAUGHTER IN ROOM MOST OF DAY. CALL LIGHT IN REACH. FLUIDS INFUSED DURING SHIFT PER EMAR, DC'D THIS EVENING.
--- NOTE | 2022-10-18 22:23 | NUR ---
ASSUMPTION OF CARE THIS RN ASSUMED CARE OF PATIENT AT 1900. REPORT TAKEN FROM REAL CEBALLOS. PATIENT WITH STABLE VITALS. PATIENT IS FATIGUED BUT ABLE TO BE ROUSED EASILY BY VERBAL STIMULI. WHEN AWAKE PATIENT IS ALERT AND ORIENTED X3. PATIENT WITH CONFUSION ABOUT SPECIFIC DATE AND DAY OF THE WEEK BUT KNOWS THE YEAR. PATIENT IS ABLE TO MAKE NEEDS KNOWN. BED ALARM ON FOR SAFETY D/T PREVIOUS IMPULSIVENESS ON PRIOR SHIFT. REPOSITIONING Q2HRS. MEDICATING PER EMAR. PATIENT DENIES PAIN AT THIS TIME. BLE DRESSINGS C/D/I; THIS RN TO CHANGE DRESSINGS LATER IN THE SHIFT. MEPIPLEX C/D/I ON COCCYX AND LEFT BUTTOCK. PATIENT APPEARS TO BE RESTING AT THIS TIME WITH EQUAL CHEST RISE/FALL NOTED. BED IN LOWEST POSITION AND CALL LIGHT WITHIN REACH. THIS RN WILL REVIEW CHART AND CONTINUE TO MONITOR AND PROVIDE INTERVENTIONS NEEDED/ORDERED.
[2022-10-19 00:05] LABS: Bun/Creatinine Ratio 36.7 (12.0-20.0); Calcium, Blood 8.3 mg/dL (8.5-10.1); Creatinine, Blood 0.71 mg/dL (0.40-1.00); Potassium, Blood 3.6 mmol/L (3.5-5.5)
[2022-10-19 04:18] LABS: BASOPHILS ABSOLUTE AUTO 0.02 K/mm3 (0.00-0.23); BASOPHILS PERCENT AUTO 0 % (0-2); EOSINOPHILS ABSOLUTE AUTO 0.31 K/mm3 (0.00-0.68); EOSINOPHILS PERCENT AUTO 4 % (0-6); Hematocrit 28.1 % (33.0-51.0); Hemoglobin 9.2 g/dL (11.5-16.0); IMMATURE GRAN ABSOLUTE AUTO 0.08 K/mm3 (0.00-0.10); IMMATURE GRAN PERCENT AUTO 1 % (0-1); LYMPHOCYTES ABSOLUTE AUTO 1.49 K/mm3 (0.84-5.20); LYMPHOCYTES PERCENT AUTO 21 % (21-46); MONOCYTES ABSOLUTE AUTO 0.98 K/mm3 (0.16-1.47); MONOCYTES PERCENT AUTO 14 % (4-13); Mean Corpuscular HGB 29.7 pg (26.0-34.0); Mean Corpuscular HGB Conc 32.7 g/dL (31.5-36.5); Mean Corpuscular Volume 91 fL (80-100); Mean Platelet Volume 8.5 fL (9.1-12.4); NEUTROPHILS ABSOLUTE AUTO 4.11 K/mm3 (1.96-9.15); NEUTROPHILS PERCENT AUTO 59 % (41-73); Platelet Count 289 K/mm3 (150-400); RDW Coefficient Variation 15.3 % (11.7-14.2); RDW Standard Deviation 50.5 fL (35.1-46.3); White Blood Cell Count 6.99 K/mm3 (4.00-11.30)
[2022-10-19 04:36] LABS: Albumin, Blood 1.3 g/dL (3.4-5.0); Albumin/Globulin Ratio 0.3 (0.8-1.8); Bilirubin, Total 0.2 mg/dL (0.1-1.0); Bun/Creatinine Ratio 33.7 (12.0-20.0); Calcium, Blood 8.2 mg/dL (8.5-10.1); Creatinine, Blood 0.8 mg/dL (0.40-1.00); Globulin, Blood 3.8 g/dL (2.2-4.0); Potassium, Blood 3.2 mmol/L (3.5-5.5); Total Protein, Blood 5.1 g/dL (6.4-8.2)
--- NOTE | 2022-10-19 04:49 | NUR ---
SHIFT SUMMARY NO CHANGES IN NEURO SINCE PREVIOUS NOTE. NSR ON MONITOR WITH HR 70-90'S. PATIENT WITH SOFT BP'S. AUTO BP ON MONITOR SHOWED MAP <60 ON SEVERAL OCCASIONS, THIS RN ASSESSED PATIENT AND TOOK MANUAL BP WITH RESULTS OF SBP 100-110 AND DBP 50-60 WITH A MAP >65. DURING THESE PERIODS PATIENT WAS ALERT AND ORIENTED X3 PREVIOUS ASSESSMENT AND DENIED FEELINGS OF DIZZINESS, LIGHTHEADEDNESS, WEAKNESS OR VISION CHANGES. PATIENT HAD PREVIOUSLY BEEN MEDICATED FOR PAIN WITH NORCO AND GIVEN MIRAPEX FOR RESTLESS LEGS PRIOR TO THE HYPOTENSION DURING THIS SHIFT. THIS RN CONTINUED TO TAKE MANUAL BP'S Q30MIN WITH THE SAME BP RANGE STATED PREVIOUSLY WITH MAP >65. THIS RN DISCUSSED WITH CHARGE NURSE MEGA AND AGREED TO CONTINUE TO MONITOR PATIENT FOR SIGNS/SYMPTOMS OF HYPOTENSION AND MANUAL BP SHOWING MAP <65. PREVIOUS DAY SHIFT RN HAD REPORTED HYPOTENSION DURING THE DAY WELL. CBG'S BEING CHECKED PERIODICALLY THROUGHOUT THIS SHIFT SHOWING GLUCOSE IN THE 70'S. PATIENT ENCOURAGED TO DRINK ENSURE/WATER AND HAVE SNACKS DURING THE NIGHT D/T REPORTED POOR INTAKE. THIS RN CHANGED DRESSINGS ON LEFT LEG WITH HEAVY SANGUINEOUS DRAINAGE FROM THE WOUND BED OF THE LEG. RIGHT LEG DRESSING C/D/I AND D/T PATIENT'S PAIN THIS RN LEFT RIGHT LEG DRESSING IN PLACE. NONADHERANT DRESSING APPLIED TO WOUND BED D/T PREVIOUS PAD DRESSING STICKING TO WOUND AND NEEDING TO BE SOAKED OFF. WOUNDS REMAIN UNCHANGED FROM PREVIOUS PICTURES IN THE CHART. SEE PHOTOS IN CHART. PATIENT ABLE TO ROLL SELF IN BED WITH MODERATE ASSISTANCE. MEPIPLEX ON COCCYX AND LEFT BUTTOCK C/D/I. BED IN LOWEST POSITION AND CALL LIGHT WITHIN REACH. PATIENT CALLING APPROPRIATELY. THIS RN WILL CONTINUNE TO MONITOR UNTIL SHIFT CHANGE AT 0700.
--- NOTE | 2022-10-19 14:54 | NUR ---
Pt resting in bed upon arrival eating lunch. Pt's spouse and daughter at bedside. Offered therapeutic listening and reviewed plan of care. Engaged in therapeutic discussion regarding Pt's code status wishes. Educated on life sustaining measures including risks and implications to CPR. Pt reports being unsure of her wishes and will consider options. She reports being ok with being a full code for now. Brief discussion regarding the importance of planning for the future including the potential need for caregiver support. Spouse reports being Pt's primary caregiver and family is supportive for times he needs respite. Continued therapeutic listening and answered questions. Spoke with Primary RN Shankar and discussed case. Palliative Care will remain available
--- NOTE | 2022-10-19 18:43 | NUR ---
END OF SHIFT: NEURO: PATIENT HAS INCREASED ALERTNESS AND ORIENTATION, HAS BEEN MORE ABLE TO MAKE NEEDS KNOWN, COOPERATIVE WITH CARE, HAS BEEN ABLE TO REST FOR LONGER PERIODS OF TIME DURING THIS SHIFT THAN ANY PREVIOUS. PLEASANT. CARDIAC: PATIENT HAD SOME SOFTER BLOOD PRESSURES AFTER SHE RECIEVED ALL HER BLOODPRESSURE MEDS IN THE AM, MAP>61. QUICKLY MAP >70 SHORTLY AFTER. PROVIDER AWARE. PATIENT HAS BEEN REPOSITIONED BY SELF, PCT, FAMILY AT A MINUMUM OF Q1.5 HOURS. DENIES CHEST PAIN PRESSURE OR SOB. PULM: PATIENT ON RA SPO2 >96% EVEN WHILE SLEEPING. PATIENT IN NO SIGN OF ACUTE RESPIRATORY DISTRESS GI/ PATIENT HAD 2 BM'S. MENDOZA DRAINING WELL TO GRAVITY. PATIENT HAS BEEN ITCHY CREAMS APPLIED PRN AND SCHEDULED. INMPROVING. IMPROVED SWALLOW AND ABILITY TO EAT. WOUNDS: PATIENT DENIES NEED FOR WOUND CHANGE. PROVIDER AWARE, WILL CHANGE DURING PHARMACEUTICAL OFFICER, AND INFORM PROVIDER OF CONDITION. PATIENT MORE AGREEABLE TO THIS . BLE. WILL COTINUE TO MONITOR UNTIL SHIFT CHANGE NO CONCERNS FROM THIS RN AT THIS TIME.
--- NOTE | 2022-10-20 05:21 | NUR ---
SHIFT SUMMARY PT A&Ox3, INTERMITENT CONFUSION/LETHARGIC. ANSWERING QUESTIONS APPROPRIATELY. BP STABLE, PT REMAINED IN SR, 70-100's DENIES CP/PRESSURE. SpO2> 92% RA, DENIES SOB. MENDOZA CATHETER IN PLACE, PATENT, DRAINING TO GRTAVITY. PT REFUSED WOUND CARE, ATTEMPTED TO CHANGE DRESSINGS TWICE. PT REFUSED D/T WOUND CENTER NURSE SUPPOSED TO BE COMING IN TODAY TO DO DRESSING CHANGES. DRESSINGS NOT SATURATED THROUGH. NO OTHER EVENTS THIS SHIFT, WILL REPORT TO ONCOMING RN.
[2022-10-20 10:22] LABS: Hematocrit 31.6 % (33.0-51.0); Hemoglobin 10.3 g/dL (11.5-16.0); Mean Corpuscular HGB 29.9 pg (26.0-34.0); Mean Corpuscular HGB Conc 32.6 g/dL (31.5-36.5); Mean Corpuscular Volume 92 fL (80-100); Mean Platelet Volume 8.7 fL (9.1-12.4); NRBC ABSOLUTE 0.03 K/mm3 (0.00-0.02); NRBC Auto 0.4 /100 WBC (0.0-0.2); Platelet Count 307 K/mm3 (150-400); RDW Coefficient Variation 15.3 % (11.7-14.2); RDW Standard Deviation 51.9 fL (35.1-46.3); Red Blood Cell Count 3.45 M/mm3 (3.80-5.20); White Blood Cell Count 7.69 K/mm3 (4.00-11.30)
[2022-10-20 10:59] LABS: C-REACTIVE PROTEIN, EXT RANGE 7.11 mg/dL (0.000-0.300)
[2022-10-20 11:00] LABS: Albumin, Blood 1.5 g/dL (3.4-5.0); Albumin/Globulin Ratio 0.3 (0.8-1.8); Bilirubin, Total 0.2 mg/dL (0.1-1.0); Bun/Creatinine Ratio 24.4 (12.0-20.0); Calcium, Blood 8.3 mg/dL (8.5-10.1); Creatinine, Blood 0.7 mg/dL (0.40-1.00); Globulin, Blood 4.3 g/dL (2.2-4.0); Potassium, Blood 3.9 mmol/L (3.5-5.5); Total Protein, Blood 5.8 g/dL (6.4-8.2)
--- NOTE | 2022-10-20 14:36 | NUR ---
END OF SHIFT: NEURO: ALERT AND ORIENTED X 3-4. PLEASANT, COOPERATIVE WITH CARE, SOME GENERALIZED WEAKNESS, IMPROVING DAILY, WORKED WITH OT THIS AM AND WAS ABLE TO PIVOT TRANSFER TO BSC, AND RECLINER, LIFT SHIFT ON RECLINER PATIENT HAD TO BE TRANSFERRED VIA LIFT BACK TO BED DUE TO ANXIETY, WEAKNESS AND PATIENT WILL ATTEMPT AGAIN TOMORROW. WAS IN THE CHAIR FOR BREAKFAST AND LUNCH. PAIN HAS BEEN INCREASED WITH WOUND CHANGE AND MOVEMENT, PRN MEDICATIONS HAVE BEEN GIVEN ALMOST SCHEDULED TO KEEP PAIN UNDER CONTROL. PULM: PATIENT IS ON RA, NEVER DROPPING BELOW 98% SPO2 WITH A CORRECT PLETH. LUNGS SOUNDS CLEAR T/O, SLIGHTLY DIM IN BASES. CARDIAC: PATIENT HAS HAD SOFTER BLOOD PRESSURES WITH AM MEDS, MAP STILL > 60. PROVIDER AWARE. STILL DIURESING WELL. NJ 70-90. WILL CONTINUE TO MONITOR. DENIES CHEST PAIN PRESSURE OR SOB. GI/: PATIENT CURRENLTY AT 3 SOFTER BM'S, MILDLY INCONTINENT. MENDOZA STILL DRAINING TO GRAVITY WELL. WOUNDS: Q2 TURNS, IF NOT SOONER BY MYSELF, FAMILY, AND OR PCT. PATIENT HAD WOUND CENTER RN THIS AM. IMPROVING FROM HISTORY OF LAST SEEN, PROVIDER SEEN. CONCERNS/RECOMMENDATIONS: NO CONCERNS. PATIENT BLOOD PRESSURE IF STABLE SHOULD BE APPROPRIATE FOR MEDICAL FLOOR IF NEEDED TO STAY. PLEASE SEE HOSPITALIST NOTE FOR PLAN, WILL CONTINUE TO MONITOR UNTIL SHIFT CHANGE.
--- NOTE | 2022-10-20 15:20 | NUR ---
WOUND CARE PT CURRENTLY SEEN OUTPATIENT WOUND CENTER AND IS KNOWN TO THIS RN. WOUNDS IMPROVING WITH ELEVATION AND IV ANTIBIOTICS. WOUND CLEANSED WITH NS, SORBACT APPLIED TO WOUND BEDS, COVERED WITH ABD, ROLLED GAUZE, LIZABETH. PT PAINFUL DURING CHANGE. DISCUSSED OPTION OF PLACING PT BACK IN 3-4 LAYER COMPRESSION. WC RN WILL RETURN TOMORROW FOR DRESSING CHANGE
--- NOTE | 2022-10-21 05:10 | NUR ---
SHIFT SUMMARY PT A&Ox4, CALLS AND COMMUNICATES NEEDS APPROPRIATELY. BP STABLE, PT REMAINED IN SR, 70-100's DENIES CP/PRESSURE. SpO2> 92% RA, DENIES SOB. MENDOZA CATHETER IN PLACE, PATENT, DRAINING TO GRAVITY. PT WITH ONE LOOSE BM THIS SHIFT, CONTINENT. NO OTHER EVENTS THIS SHIFT, WILL REPORT TO ONCOMING RN.
--- NOTE | 2022-10-21 08:45 | NUR ---
INITIAL ASSESSMENT: Patient is resting with eyes closed, resp e/u. She awakens easily with verbal stimuli. She is alert and oriented x4. She reports 7/10 pain in her BLE, she states this is a "good number" for her pain. OT is coming to work with the patient, [place] and mirapex administered. HRR, SR in the 80s. LS DIM in the bases, Biox is 96% on RA. BT+, per NOC shift RN and patient, patient has been having diarrhea since yesterday, bowel care medications held this AM. Velazquez cath patent and draining clear yellow urine. PPP. PT BLE are dry and scaly, she has dressings to BLE with gauze and yakov wrap covering. VSS this AM. OT is at bedside to work with patient.
--- NOTE | 2022-10-21 14:44 | NUR ---
WOUND CARE BLE DRESSINGS CHANGED PER ORDER. PT PREMEDICATED BUT PAINFUL THROUGHOUT DRESSING CHANGE. THIS RN TOOK FREQUENT BREAKS WHILE REMOVING DRESSING. ALSO ATTEMPTED TO HELP PT TAKE DEEP BREATHS AND RELAX DURING CHANGE. WOUNDS ARE SHOWING IMPROVEMENT WITH LESS DRAINAGE. PLAN TO DECREASE FROM DAILY DRESSING CHANGES TO EVERY OTHER DAY. NEXT CHANGE DUE THURSDAY. RN WILL RETURN TO DO DRESSING CHANGE
--- NOTE | 2022-10-21 17:46 | NUR ---
SUMMARY: Patient has been awake, alert and oriented t/o the shift. She was able to got OOB to the chair first thing this morning and she stayed in the chair until after lunch. She has been able to transfer herself with a standby assist with a FWW. She was medicated for pain twice this shift. HRR, SR in the 70s per telemetry. Blood pressure has remained stable for the shift. BT+, She had two small episodes of loose stool, stool softners held this AM. BLE venous stasis wounds with dressings in place were changed by the wound center RN Tanisha this shift, she states the wounds are dry enough that we can wait until to change them. Blood sugars have been stable this shift, pt has little PO intake due to the discomfort in her mouth and throat when she eats. She was able to get down about half of an ensure shake that I made her this afternoon. Velazquez cath patent and draining. No acute changes this shift. Report given to April Richey floor RN and patient was transferred to [facility] via bed with family at bedside.
--- NOTE | 2022-10-21 17:54 | NUR ---
TRANSFER PATIENT TRANSFERRED FROM PCU AT 1745. PATIENT SETTLED INTO ROOM. PATIENT ORIENTED TO CALL LIGHT AND TV CONTROL. FAMILY AT BEDSIDE. PATIENT REPORTING MOUTH PAIN, ESPECIALLY WITH EATING. PATIENT REFUSING DINNER, ONLY WANTING MILK AND WATER. POWERGLIDE TO MEGHANN FLUSHES BUT DOES NOT DRAW. PATIENT TOOK MEDICATION WHOLE WITH MILK. PATIENT IS A 1P WITH FWW AND GAIT BELT. MENDOZA IS PATENT AND DRAINING TO GRAVITY. PATIENT IS PLEASANT AND COOPERATIVE WITH CARE.
[2022-10-21 20:56] LABS: Creatinine, Blood 0.71 mg/dL (0.40-1.00); Vancomycin, Trough 21.4 ug/mL (5.0-10.0)
--- NOTE | 2022-10-22 03:47 | NUR ---
SHIFT SUMMARY NO OVERNGIHT CHANGES IN PT CONDITION. BLE WOUND DRSG C/D/I. CONTINUES IV ABX. POWERGLIDE VERY POSITIONAL, RE-DRESSED WITH MINIMIAL EFFECT TO FLUSH, ABLE TO COMPLETE ABX. REPORTS BLE AND BACK PAIN, ADMINISTERED NORCO NEEDED. MENDOZA CATHETER DRAINING CLEAR YELLOW URINE. NSR ON TELE. TURNED PT REQUESTED. PT ORIENTED X4, ABLE TO MAKE NEEDS KNOWN. WILL CONTINUE TO MONITOR.
--- NOTE | 2022-10-22 17:56 | NUR ---
SHIFT SUMMARY PATIENT MEDICATED FOR PAIN X2. PATIENT DENIES NAUSEA AND SHORTNESS OF BREATH. PATIENT IS A 1P WITH FWW. POWERGLIDE WOULD NOT FLUSH AND DID NOT DRAW. INFORMED CHARGE NURSE. THIS RN CHANGED DRESSING AND LINE NOW FLUSHES BUT STILL DOES NOT DRAW. EDUCATION DONE WITH FAMILY VIA VIDEO WITH [facility] FOR HOME IV ABX ADMINISTRATION. FAMILY HAD NO FURTHER QUESTIONS FOR THIS RN. PER [facility], PATIENT NEEDS PICC LINE. INFORMED CHARGE NURSE, TO BE PLACED TOMORROW BEFORE DISCHARGE. MENDZOA IS PATENT AND DRAINING TO GRAVITY. DRESSINGS TO WOUND ON BILAT LOWER EXTREMITITES DONE. VERY PAINFUL FOR PATIENT, EVEN WITH PAIN MEDICATION GIVEN BEFORE. PATIENT HAS TROUBLE EATING DUE TO RASH IN MOUTH, PATIENT DID DRINK ENSURE X2 TODAY HOWEVER. PATIENT WORKED WITH PT TODAY. PATIENT IS VERY PLEASANT AND COOPERATIVE WITH CARE.
--- NOTE | 2022-10-23 04:40 | NUR ---
SHIFT SUMMARY NOC PT A/O X 4. PT PG D/C DUE TO KINK IN LINE. PICC LINE SCHEDULED TO BE PLACED 10/23/22 SO PT CAN D/C HOME WITH ABX. PT FAMILY GETTING EDUCATION ON HOME ABX ADMINISTRATION. 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 PT ON TELE RUNNING NSR @ 79 BPM. PT HAD C/O OF CHRONIC LOWER BACK PN AND MEDICATED PER EMAR. PT MENDOZA PATENT AND DRAINING YELLOW URINE TO GRAVITY. NO ACUTE CHANGES TO REPORT. PT IS CURRENTLY RESTING WITH BED IN LOWEST POSITION, AND CALL LIGHT WITHIN REACH. WCTM.
[2022-10-23 05:52] LABS: BASOPHILS ABSOLUTE AUTO 0.03 K/mm3 (0.00-0.23); BASOPHILS PERCENT AUTO 0 % (0-2); EOSINOPHILS ABSOLUTE AUTO 0.36 K/mm3 (0.00-0.68); EOSINOPHILS PERCENT AUTO 5 % (0-6); Hematocrit 30.1 % (33.0-51.0); Hemoglobin 9.5 g/dL (11.5-16.0); IMMATURE GRAN ABSOLUTE AUTO 0.08 K/mm3 (0.00-0.10); IMMATURE GRAN PERCENT AUTO 1 % (0-1); LYMPHOCYTES ABSOLUTE AUTO 1.32 K/mm3 (0.84-5.20); LYMPHOCYTES PERCENT AUTO 18 % (21-46); MONOCYTES PERCENT AUTO 14 % (4-13); Mean Corpuscular HGB 29.2 pg (26.0-34.0); Mean Corpuscular HGB Conc 31.6 g/dL (31.5-36.5); Mean Corpuscular Volume 93 fL (80-100); Mean Platelet Volume 9.3 fL (9.1-12.4); NEUTROPHILS ABSOLUTE AUTO 4.56 K/mm3 (1.96-9.15); NEUTROPHILS PERCENT AUTO 62 % (41-73); Platelet Count 245 K/mm3 (150-400); RDW Coefficient Variation 15.5 % (11.7-14.2); RDW Standard Deviation 51.8 fL (35.1-46.3); Red Blood Cell Count 3.25 M/mm3 (3.80-5.20); White Blood Cell Count 7.35 K/mm3 (4.00-11.30)
[2022-10-23 06:19] LABS: C-REACTIVE PROTEIN, EXT RANGE 4.07 mg/dL (0.000-0.300)
[2022-10-23 06:23] LABS: Bun/Creatinine Ratio 18.7 (12.0-20.0); Calcium, Blood 8.2 mg/dL (8.5-10.1); Creatinine, Blood 0.64 mg/dL (0.40-1.00); Potassium, Blood 3.1 mmol/L (3.5-5.5)
[2022-10-23] MEDS ORDERED: ACET325 PO (11:45)
[2022-10-23] MEDS ORDERED: TAZICEF2 G2 IV (11:46)
[2022-10-23] MEDS ORDERED: DOCU100 PO (11:46)
[2022-10-23] MEDS ORDERED: HYDHCL25 PO (11:47)
[2022-10-23] MEDS ORDERED: VISBIOME 112.51 EACH PO (11:47)
[2022-10-23] MEDS ORDERED: NYSTATIN100000 U10 SS (11:52)
[2022-10-23] MEDS ORDERED: DOXY100 PO (11:52)
[2022-10-23] MEDS ORDERED: MORP20L PO (11:53)
--- NOTE | 2022-10-23 18:39 | NUR ---
DISCHARGE SUMMARY PATIENT IS ALERT AND ORIENTED. PATIENT IS BEING DISCHARGED HOME. PATIENT HAS HAD NO ACUTE EVENTS THIS SHIFT. WOUND DRESSINGS WERE CHANGED. [facility] IS TRANSPORTING PATIENT.
== END 2022-10-23 18:40 | disposition home health service (06) | DRG 871 ==
LOC: ER 15:14 → PCU 20:02 → MEDS 20:02 → PCU 20:31 → MEDS 10-21 17:34
PROVIDERS: Hospitalist; Internal Medicine; Physician Assistant; ADMIT Student in an Organized Health Care Education/Training Program
PROC: 3E03329 Introduction of Other Anti-infective into Peripheral Vein, Percutaneous Approach (ICD-10-PCS; principal; 2022-10-16)
PROC: 05HY33Z Insertion of Infusion Device into Upper Vein, Percutaneous Approach (ICD-10-PCS; 2022-10-23)
DX: A41.02 Sepsis due to Methicillin resistant Staphylococcus aureus (principal); G92.8 Other toxic encephalopathy; N17.9 Acute kidney failure, unspecified; E87.1 Hypo-osmolality and hyponatremia; Z68.41 Body mass index [BMI] 40.0-44.9, adult; N39.0 Urinary tract infection, site not specified; E87.29 Other acidosis; L03.115 Cellulitis of right lower limb; L03.116 Cellulitis of left lower limb; Z99.3 Dependence on wheelchair; Z28.21 Immunization not carried out because of patient refusal; A41.52 Sepsis due to Pseudomonas; R65.20 Severe sepsis without septic shock; I10 Essential (primary) hypertension; M06.9 Rheumatoid arthritis, unspecified; K58.9 Irritable bowel syndrome, unspecified; I87.2 Venous insufficiency (chronic) (peripheral); G47.00 Insomnia, unspecified; E78.5 Hyperlipidemia, unspecified; F41.8 Other specified anxiety disorders; K21.9 Gastro-esophageal reflux disease without esophagitis; M79.7 Fibromyalgia; G25.81 Restless legs syndrome; E87.5 Hyperkalemia; I44.0 Atrioventricular block, first degree; E16.2 Hypoglycemia, unspecified; E66.9 Obesity, unspecified; E83.39 Other disorders of phosphorus metabolism; E55.9 Vitamin D deficiency, unspecified; M35.00 Sjogren syndrome, unspecified; B88.8 Other specified infestations; R32 Unspecified urinary incontinence; G89.4 Chronic pain syndrome; E61.1 Iron deficiency; I73.9 Peripheral vascular disease, unspecified; M81.0 Age-related osteoporosis without current pathological fracture; Z96.652 Presence of left artificial knee joint; Z90.710 Acquired absence of both cervix and uterus; Z98.1 Arthrodesis status; Z98.890 Other specified postprocedural states; Z88.8 Allergy status to other drugs, medicaments and biological substances; Z91.048 Other nonmedicinal substance allergy status; Z79.899 Other long term (current) drug therapy
CPT/HCPCS: 36415; 36569; 51702; 76770; 80048; 80053; 80202; 81001; 82565; 82570; 82803; 82947; 83605; 83735; 83880; 83930; 83935; 84100; 84300; 85025; 85027; 85651; 86140; 87086; 92526; 92610; 93005; 93010; 93970; 94640; 94664; 94760; 94762; 96365-59; 96375-59; 96376-59; 97162; 97166; 97530; 97535; 99285-25; A9270; C1751; J0610; J0713; J1200; J1644; J1815; J2020; J2270; J2543; J3370; J3480; J7030; J7050; J7120

== ENCOUNTER 2022-10-28 09:29 | Day surgery (SDC) | payer OTHER | END 2022-10-28 22:47 | disposition home or self-care (01) | LOC: WOUND 09:29 | DX: I87.313 Chronic venous hypertension (idiopathic) with ulcer of bilateral lower extremity (principal); L97.812 Non-pressure chronic ulcer of other part of right lower leg with fat layer exposed; L97.822 Non-pressure chronic ulcer of other part of left lower leg with fat layer exposed; L03.115 Cellulitis of right lower limb; L02.415 Cutaneous abscess of right lower limb; I87.2 Venous insufficiency (chronic) (peripheral); I73.9 Peripheral vascular disease, unspecified; R77.0 Abnormality of albumin | CPT/HCPCS: A9270; G0463 ==

== ENCOUNTER → 2022-10-28 | Outpatient (CLI) | payer OTHER ==
[~2022-10-28] MED LIST changes: +ACET325 PO; +BENAZEPRIL HCL20 M4 PO; +BUME2 PO; +Cipro500 MG PO; +DOCU100 PO; +DOXY100 PO; +ENBREL50 MG/1 M2 SC; +HYDCOR2.5C PR; +HYDHCL25 PO; +LIDO5TO TOP; +METR250 PO; +MORP20L PO; +NYSTATIN100000 U10 SS; +NYSTRIT TOP; +ONDA4 PO; +POTA10T PO; +Pulmicort Fle180 MCG INH; +TAZICEF2 G2 IV; +VISBIOME 112.51 EACH PO
[2022-10-28 13:00] LABS: BASOPHILS ABSOLUTE AUTO 0.05 K/mm3 (0.00-0.23); BASOPHILS PERCENT AUTO 1 % (0-2); EOSINOPHILS ABSOLUTE AUTO 0.64 K/mm3 (0.00-0.68); EOSINOPHILS PERCENT AUTO 8 % (0-6); Hematocrit 34.4 % (33.0-51.0); Hemoglobin 10.6 g/dL (11.5-16.0); IMMATURE GRAN ABSOLUTE AUTO 0.03 K/mm3 (0.00-0.10); IMMATURE GRAN PERCENT AUTO 0 % (0-1); LYMPHOCYTES ABSOLUTE AUTO 1.21 K/mm3 (0.84-5.20); LYMPHOCYTES PERCENT AUTO 15 % (21-46); MONOCYTES ABSOLUTE AUTO 0.68 K/mm3 (0.16-1.47); MONOCYTES PERCENT AUTO 9 % (4-13); Mean Corpuscular HGB 29.9 pg (26.0-34.0); Mean Corpuscular HGB Conc 30.8 g/dL (31.5-36.5); Mean Corpuscular Volume 97 fL (80-100); Mean Platelet Volume 10.3 fL (9.1-12.4); NEUTROPHILS ABSOLUTE AUTO 5.43 K/mm3 (1.96-9.15); NEUTROPHILS PERCENT AUTO 68 % (41-73); Platelet Count 290 K/mm3 (150-400); RDW Coefficient Variation 16.8 % (11.7-14.2); RDW Standard Deviation 58.1 fL (35.1-46.3); Red Blood Cell Count 3.55 M/mm3 (3.80-5.20); White Blood Cell Count 8.04 K/mm3 (4.00-11.30)
[2022-10-28 13:17] LABS: Albumin, Blood 1.7 g/dL (3.4-5.0); Albumin/Globulin Ratio 0.3 (0.8-1.8); Bilirubin, Total 0.2 mg/dL (0.1-1.0); Bun/Creatinine Ratio 15.8 (12.0-20.0); Calcium, Blood 8.6 mg/dL (8.5-10.1); Creatinine, Blood 1.65 mg/dL (0.40-1.00); Globulin, Blood 4.9 g/dL (2.2-4.0); Potassium, Blood 3.7 mmol/L (3.5-5.5); Total Protein, Blood 6.6 g/dL (6.4-8.2)
== END | disposition home or self-care (01) ==
LOC: LAB SHORT 12:54
PROVIDERS: Physician Assistant
DX: A41.9 Sepsis, unspecified organism (principal); L03.119 Cellulitis of unspecified part of limb
CPT/HCPCS: 80053; 85025; 85651; 86140

== ENCOUNTER 2022-11-05 01:38 | Day surgery (SDC) | payer OTHER | END 2022-11-05 22:54 | disposition home or self-care (01) | LOC: WOUND | DX: I87.2 Venous insufficiency (chronic) (peripheral) (principal); L97.822 Non-pressure chronic ulcer of other part of left lower leg with fat layer exposed; L97.812 Non-pressure chronic ulcer of other part of right lower leg with fat layer exposed; I73.9 Peripheral vascular disease, unspecified; R60.0 Localized edema; R77.0 Abnormality of albumin | CPT/HCPCS: A9270; G0463 ==

== ENCOUNTER 2022-11-12 00:31 | Day surgery (SDC) | payer OTHER | END 2022-11-12 23:37 | disposition home or self-care (01) | LOC: WOUND 00:31 | DX: I87.2 Venous insufficiency (chronic) (peripheral) (principal); L97.812 Non-pressure chronic ulcer of other part of right lower leg with fat layer exposed; L97.822 Non-pressure chronic ulcer of other part of left lower leg with fat layer exposed; L03.115 Cellulitis of right lower limb; I73.9 Peripheral vascular disease, unspecified; R60.0 Localized edema; R77.0 Abnormality of albumin | CPT/HCPCS: A9270 ==

== ENCOUNTER 2022-11-19 00:30 | Day surgery (SDC) | payer OTHER | END 2022-11-19 22:53 | disposition home or self-care (01) | LOC: WOUND 00:30 | DX: L97.812 Non-pressure chronic ulcer of other part of right lower leg with fat layer exposed (principal); I87.2 Venous insufficiency (chronic) (peripheral); L97.922 Non-pressure chronic ulcer of unspecified part of left lower leg with fat layer exposed; L03.115 Cellulitis of right lower limb; I73.9 Peripheral vascular disease, unspecified; R77.0 Abnormality of albumin | CPT/HCPCS: G0463 ==

== ENCOUNTER 2022-11-26 08:00 | Day surgery (SDC) | payer OTHER | END 2022-11-26 23:59 | disposition home or self-care (01) | LOC: WOUND 08:00 | DX: L97.812 Non-pressure chronic ulcer of other part of right lower leg with fat layer exposed (principal); L03.115 Cellulitis of right lower limb; I87.2 Venous insufficiency (chronic) (peripheral); I73.9 Peripheral vascular disease, unspecified; R60.0 Localized edema; L97.822 Non-pressure chronic ulcer of other part of left lower leg with fat layer exposed | CPT/HCPCS: G0463 ==

== ENCOUNTER 2022-12-10 01:07 | Day surgery (SDC) | payer OTHER | END 2022-12-10 22:47 | disposition home or self-care (01) | LOC: WOUND 01:07 | DX: L97.812 Non-pressure chronic ulcer of other part of right lower leg with fat layer exposed (principal); I87.2 Venous insufficiency (chronic) (peripheral); I73.9 Peripheral vascular disease, unspecified; L03.115 Cellulitis of right lower limb | CPT/HCPCS: A9270; G0463 ==

== ENCOUNTER 2022-12-24 02:22 | Day surgery (SDC) | payer OTHER | END 2022-12-24 22:39 | disposition home or self-care (01) | LOC: WOUND 02:22 | DX: L02.416 Cutaneous abscess of left lower limb (principal); L97.822 Non-pressure chronic ulcer of other part of left lower leg with fat layer exposed; L97.812 Non-pressure chronic ulcer of other part of right lower leg with fat layer exposed; I87.2 Venous insufficiency (chronic) (peripheral) | CPT/HCPCS: A9270; G0463 ==

== ENCOUNTER 2023-01-07 03:35 | Day surgery (SDC) | payer OTHER | END 2023-01-07 23:00 | disposition home or self-care (01) | LOC: WOUND 03:35 | DX: L97.812 Non-pressure chronic ulcer of other part of right lower leg with fat layer exposed (principal); L97.822 Non-pressure chronic ulcer of other part of left lower leg with fat layer exposed; L03.115 Cellulitis of right lower limb; I87.2 Venous insufficiency (chronic) (peripheral); I73.9 Peripheral vascular disease, unspecified; R60.0 Localized edema; R77.0 Abnormality of albumin | CPT/HCPCS: G0463 ==

== ENCOUNTER → 2023-01-08 | Outpatient (CLI) | payer OTHER ==
[2023-01-08 14:47] LABS: Protein, Urine Quantitative 8.5 mg/dL (0.0-11.9)
== END | disposition home or self-care (01) ==
LOC: LAB SHORT 10:00 → LAB 10:00
PROVIDERS: Physician Assistant
DX: R94.4 Abnormal results of kidney function studies (principal)
CPT/HCPCS: 81050; 84156

== ENCOUNTER 2023-01-14 02:23 | Day surgery (SDC) | payer OTHER | END 2023-01-14 23:01 | disposition home or self-care (01) | LOC: WOUND 02:23 | DX: L97.822 Non-pressure chronic ulcer of other part of left lower leg with fat layer exposed (principal); L97.812 Non-pressure chronic ulcer of other part of right lower leg with fat layer exposed; L03.116 Cellulitis of left lower limb; I87.2 Venous insufficiency (chronic) (peripheral); I73.9 Peripheral vascular disease, unspecified; R60.0 Localized edema; R77.0 Abnormality of albumin | CPT/HCPCS: A9270 ==

== ENCOUNTER 2023-01-21 02:39 | Day surgery (SDC) | payer OTHER | END 2023-01-21 22:50 | disposition home or self-care (01) | LOC: WOUND 02:39 | DX: L97.822 Non-pressure chronic ulcer of other part of left lower leg with fat layer exposed (principal); L97.812 Non-pressure chronic ulcer of other part of right lower leg with fat layer exposed; L97.922 Non-pressure chronic ulcer of unspecified part of left lower leg with fat layer exposed; L03.115 Cellulitis of right lower limb; I87.2 Venous insufficiency (chronic) (peripheral); I73.9 Peripheral vascular disease, unspecified; R60.0 Localized edema; R77.0 Abnormality of albumin | CPT/HCPCS: A9270 ==

== ENCOUNTER 2023-01-28 01:20 | Day surgery (SDC) | payer OTHER | END 2023-01-28 23:03 | disposition home or self-care (01) | LOC: WOUND 01:20 | DX: L97.822 Non-pressure chronic ulcer of other part of left lower leg with fat layer exposed (principal); L97.812 Non-pressure chronic ulcer of other part of right lower leg with fat layer exposed; L97.922 Non-pressure chronic ulcer of unspecified part of left lower leg with fat layer exposed; L03.115 Cellulitis of right lower limb; I87.2 Venous insufficiency (chronic) (peripheral); I73.9 Peripheral vascular disease, unspecified; R60.0 Localized edema; R77.0 Abnormality of albumin | CPT/HCPCS: A9270; G0463 ==

== ENCOUNTER 2023-02-04 02:26 | Day surgery (SDC) | payer OTHER | END 2023-02-04 23:31 | disposition home or self-care (01) | LOC: WOUND 02:26 | DX: L97.825 Non-pressure chronic ulcer of other part of left lower leg with muscle involvement without evidence of necrosis (principal); L97.822 Non-pressure chronic ulcer of other part of left lower leg with fat layer exposed; L97.812 Non-pressure chronic ulcer of other part of right lower leg with fat layer exposed; L03.115 Cellulitis of right lower limb; I87.2 Venous insufficiency (chronic) (peripheral); I73.9 Peripheral vascular disease, unspecified; R60.0 Localized edema; R77.0 Abnormality of albumin | CPT/HCPCS: 87070; 87075; 87077; 87186; 87205; A9270; G0463 ==

== ENCOUNTER 2023-02-18 05:42 | Day surgery (SDC) | payer OTHER | END 2023-02-18 23:04 | disposition home or self-care (01) | LOC: WOUND 05:42 | DX: L97.825 Non-pressure chronic ulcer of other part of left lower leg with muscle involvement without evidence of necrosis (principal); L97.822 Non-pressure chronic ulcer of other part of left lower leg with fat layer exposed; L97.812 Non-pressure chronic ulcer of other part of right lower leg with fat layer exposed; L03.115 Cellulitis of right lower limb; I87.2 Venous insufficiency (chronic) (peripheral); I73.9 Peripheral vascular disease, unspecified; R60.0 Localized edema; R77.0 Abnormality of albumin | CPT/HCPCS: G0463 ==

== ENCOUNTER 2023-02-27 01:28 | Day surgery (SDC) | payer OTHER | END 2023-03-01 22:40 | disposition home or self-care (01) | LOC: WOUND 01:28 | DX: L97.825 Non-pressure chronic ulcer of other part of left lower leg with muscle involvement without evidence of necrosis (principal); L97.812 Non-pressure chronic ulcer of other part of right lower leg with fat layer exposed; L03.115 Cellulitis of right lower limb; I87.2 Venous insufficiency (chronic) (peripheral); I73.9 Peripheral vascular disease, unspecified; R60.0 Localized edema; R77.0 Abnormality of albumin | CPT/HCPCS: A9270; G0463 ==

== ENCOUNTER 2023-03-06 02:28 | Day surgery (SDC) | payer OTHER | END 2023-03-08 22:53 | disposition home or self-care (01) | LOC: WOUND 02:28 | DX: L97.825 Non-pressure chronic ulcer of other part of left lower leg with muscle involvement without evidence of necrosis (principal); L97.812 Non-pressure chronic ulcer of other part of right lower leg with fat layer exposed; L03.115 Cellulitis of right lower limb; I87.2 Venous insufficiency (chronic) (peripheral); I73.9 Peripheral vascular disease, unspecified; R60.0 Localized edema; R77.0 Abnormality of albumin | CPT/HCPCS: G0463 ==

== ENCOUNTER → 2023-03-20 | Day surgery (SDC) | payer OTHER | LOC: WOUND 03:15 | DX: L97.822 Non-pressure chronic ulcer of other part of left lower leg with fat layer exposed (principal); L02.416 Cutaneous abscess of left lower limb; L03.115 Cellulitis of right lower limb; I87.2 Venous insufficiency (chronic) (peripheral); I73.9 Peripheral vascular disease, unspecified; R60.0 Localized edema; R77.0 Abnormality of albumin | CPT/HCPCS: G0463 ==

== ENCOUNTER 2023-04-20 00:57 | Day surgery (SDC) | payer OTHER | END 2023-04-20 22:57 | disposition home or self-care (01) | LOC: WOUND 00:57 | DX: L03.115 Cellulitis of right lower limb (principal); S80.11XD Contusion of right lower leg, subsequent encounter; M06.9 Rheumatoid arthritis, unspecified; W18.40XD Slipping, tripping and stumbling without falling, unspecified, subsequent encounter; I73.9 Peripheral vascular disease, unspecified; R60.0 Localized edema; R77.0 Abnormality of albumin | CPT/HCPCS: G0463 ==

== ENCOUNTER 2023-05-08 03:18 | Day surgery (SDC) | payer OTHER | END 2023-05-08 22:47 | disposition home or self-care (01) | LOC: WOUND 03:18 | DX: L97.812 Non-pressure chronic ulcer of other part of right lower leg with fat layer exposed (principal); I87.2 Venous insufficiency (chronic) (peripheral); L97.822 Non-pressure chronic ulcer of other part of left lower leg with fat layer exposed; L03.115 Cellulitis of right lower limb; I73.9 Peripheral vascular disease, unspecified; R60.0 Localized edema; R77.0 Abnormality of albumin | CPT/HCPCS: G0463 ==

== ENCOUNTER 2023-05-15 01:35 | Day surgery (SDC) | payer OTHER | END 2023-05-15 23:11 | disposition home or self-care (01) | LOC: WOUND 01:35 | DX: L97.812 Non-pressure chronic ulcer of other part of right lower leg with fat layer exposed (principal); L97.822 Non-pressure chronic ulcer of other part of left lower leg with fat layer exposed; L03.115 Cellulitis of right lower limb; I87.2 Venous insufficiency (chronic) (peripheral); I73.9 Peripheral vascular disease, unspecified; R77.0 Abnormality of albumin | CPT/HCPCS: G0463 ==

== ENCOUNTER 2023-05-22 00:59 | Day surgery (SDC) | payer OTHER | END 2023-05-22 22:53 | disposition home or self-care (01) | LOC: WOUND 00:59 | DX: L97.812 Non-pressure chronic ulcer of other part of right lower leg with fat layer exposed (principal); L97.822 Non-pressure chronic ulcer of other part of left lower leg with fat layer exposed; L03.115 Cellulitis of right lower limb; I87.2 Venous insufficiency (chronic) (peripheral); I73.9 Peripheral vascular disease, unspecified; R60.0 Localized edema; R77.0 Abnormality of albumin ==

== ENCOUNTER → 2023-05-25 | Outpatient (CLI) | payer OTHER ==
[2023-05-25 18:25] LABS: Source, Urine Clean Catch
[2023-05-25 19:38] LABS: Appearance, Urine Clear (Clear); Bilirubin, Urine Neg (Neg); Blood, Urine Neg (Neg); Glucose Qualitative, Urine Neg (Neg); Ketones, Urine Neg (Neg); Leukocyte Esterase, Urine 2+ (Neg); Nitrite, Urine Neg (Neg); Protein, Urine Neg (Neg); Urobilinogen, Urine NORM (Normal)
[2023-05-25 19:45] LABS: Color, Urine Pale Yellow (P-Yellow)
[2023-05-25 19:46] LABS: Red Blood Cells, Urine Not Seen /hpf (0-2); Squamous Epithelial Cells Rare /hpf (Few)
[2023-05-25 19:47] LABS: Amorphous Light (0-Heavy); Bacteria Few /hpf
== END ==
LOC: LAB SHORT 18:23 → LAB 18:23
PROVIDERS: Physician Assistant
DX: R30.0 Dysuria (principal)
CPT/HCPCS: 81001; 87077; 87086; 87186

== ENCOUNTER 2023-05-29 02:26 | Day surgery (SDC) | payer OTHER | END 2023-05-29 23:11 | disposition home or self-care (01) | LOC: WOUND 02:26 | DX: L97.812 Non-pressure chronic ulcer of other part of right lower leg with fat layer exposed (principal); L97.922 Non-pressure chronic ulcer of unspecified part of left lower leg with fat layer exposed; L03.115 Cellulitis of right lower limb; I87.2 Venous insufficiency (chronic) (peripheral); I73.9 Peripheral vascular disease, unspecified; R60.0 Localized edema; R77.0 Abnormality of albumin ==

== ENCOUNTER 2023-06-12 01:01 | Day surgery (SDC) | payer OTHER | END 2023-06-12 22:46 | disposition home or self-care (01) | LOC: WOUND 01:01 | DX: L97.812 Non-pressure chronic ulcer of other part of right lower leg with fat layer exposed (principal); M06.9 Rheumatoid arthritis, unspecified; I87.2 Venous insufficiency (chronic) (peripheral); R60.0 Localized edema; R77.0 Abnormality of albumin ==

== ENCOUNTER 2023-06-19 01:46 | Day surgery (SDC) | payer OTHER | END 2023-06-19 22:51 | disposition home or self-care (01) | LOC: WOUND 01:46 | DX: L97.822 Non-pressure chronic ulcer of other part of left lower leg with fat layer exposed (principal); I89.0 Lymphedema, not elsewhere classified; L03.115 Cellulitis of right lower limb; I87.2 Venous insufficiency (chronic) (peripheral); I73.9 Peripheral vascular disease, unspecified; R60.0 Localized edema; R77.0 Abnormality of albumin ==

== ENCOUNTER 2023-06-26 00:53 | Day surgery (SDC) | payer OTHER | END 2023-06-26 22:45 | disposition home or self-care (01) | LOC: WOUND 00:53 | DX: L97.822 Non-pressure chronic ulcer of other part of left lower leg with fat layer exposed (principal); L97.812 Non-pressure chronic ulcer of other part of right lower leg with fat layer exposed; L03.115 Cellulitis of right lower limb; I87.2 Venous insufficiency (chronic) (peripheral); I73.9 Peripheral vascular disease, unspecified ==

== ENCOUNTER 2023-07-17 00:35 | Day surgery (SDC) | payer OTHER | END 2023-07-17 22:48 | disposition home or self-care (01) | LOC: WOUND 00:35 | DX: L97.822 Non-pressure chronic ulcer of other part of left lower leg with fat layer exposed (principal); L97.812 Non-pressure chronic ulcer of other part of right lower leg with fat layer exposed; L03.115 Cellulitis of right lower limb; I87.2 Venous insufficiency (chronic) (peripheral); R77.0 Abnormality of albumin | CPT/HCPCS: G0463 ==

== ENCOUNTER 2023-07-24 02:51 | Day surgery (SDC) | payer OTHER | END 2023-07-24 22:45 | disposition home or self-care (01) | LOC: WOUND 02:51 | DX: Z09 Encounter for follow-up examination after completed treatment for conditions other than malignant neoplasm (principal) | CPT/HCPCS: G0463 ==

== ENCOUNTER 2023-10-02 05:02 | Emergency (ER) | payer OTHER ==
[~2023-10-02] VITALS: Ht 172.7 cm; Wt 113.4 kg
[2023-10-02 05:35] LABS: Source, Urine Fem Cath
[2023-10-02 06:02] LABS: Albumin, Blood 3.1 g/dL (3.4-5.0); Albumin/Globulin Ratio 0.8 (0.8-1.8); Bilirubin, Total 0.5 mg/dL (0.1-1.0); Bun/Creatinine Ratio 11.5 (12.0-20.0); Calcium, Blood 9.2 mg/dL (8.5-10.1); Creatinine, Blood 0.61 mg/dL (0.40-1.00); Globulin, Blood 3.7 g/dL (2.2-4.0); Potassium, Blood 3.6 mmol/L (3.5-5.5); Total Protein, Blood 6.8 g/dL (6.4-8.2)
[2023-10-02 06:22] LABS: Bilirubin, Urine Neg (Neg); Blood, Urine 1+ (Neg); Color, Urine Yellow (P-Yellow); Glucose Qualitative, Urine Neg (Neg); Ketones, Urine 2+ (Neg); Leukocyte Esterase, Urine 1+ (Neg); Nitrite, Urine Neg (Neg); Protein, Urine 3+ (Neg); Urobilinogen, Urine NORM (Normal)
[2023-10-02 06:42] LABS: Appearance, Urine Hazy (Clear)
[2023-10-02 06:44] LABS: Bacteria Many /hpf; Red Blood Cells, Urine 0-2 /hpf (0-2); Squamous Epithelial Cells Few /hpf (Few)
[2023-10-02 07:15] VITALS: BP 182/90
[2023-10-02 07:15] LABS: BASOPHILS ABSOLUTE AUTO 0.02 K/mm3 (0.00-0.23); BASOPHILS PERCENT AUTO 0 % (0-2); EOSINOPHILS ABSOLUTE AUTO 0.14 K/mm3 (0.00-0.68); EOSINOPHILS PERCENT AUTO 2 % (0-6); Hemoglobin 13.9 g/dL (11.5-16.0); IMMATURE GRAN ABSOLUTE AUTO 0.03 K/mm3 (0.00-0.10); IMMATURE GRAN PERCENT AUTO 0 % (0-1); LYMPHOCYTES ABSOLUTE AUTO 1.08 K/mm3 (0.84-5.20); LYMPHOCYTES PERCENT AUTO 14 % (21-46); MONOCYTES ABSOLUTE AUTO 0.87 K/mm3 (0.16-1.47); MONOCYTES PERCENT AUTO 11 % (4-13); Mean Corpuscular HGB 31.3 pg (26.0-34.0); Mean Corpuscular HGB Conc 33.1 g/dL (31.5-36.5); Mean Corpuscular Volume 95 fL (80-100); Mean Platelet Volume 10.2 fL (9.1-12.4); NEUTROPHILS ABSOLUTE AUTO 5.77 K/mm3 (1.96-9.15); NEUTROPHILS PERCENT AUTO 73 % (41-73); Platelet Count 206 K/mm3 (150-400); RDW Coefficient Variation 14.8 % (11.7-14.2); RDW Standard Deviation 51.1 fL (35.1-46.3); Red Blood Cell Count 4.44 M/mm3 (3.80-5.20); White Blood Cell Count 7.91 K/mm3 (4.00-11.30)
[2023-10-02] MEDS ORDERED: CEPH500 PO (08:38)
== END 2023-10-02 09:10 | disposition home or self-care (01) ==
LOC: ER 05:02
PROVIDERS: Emergency Medicine
DX: N39.0 Urinary tract infection, site not specified (principal); I10 Essential (primary) hypertension; M06.9 Rheumatoid arthritis, unspecified; Z88.8 Allergy status to other drugs, medicaments and biological substances; Z91.09 Other allergy status, other than to drugs and biological substances; Z79.51 Long term (current) use of inhaled steroids; Z79.899 Other long term (current) drug therapy
CPT/HCPCS: 74177; 80053; 81001; 83690; 85025; 87077; 87086; 87186; 96365-59; 96375; 99285-25; J0696; J1885; J2405; J7030; Q9967

== ENCOUNTER 2023-11-23 09:41 | Day surgery (SDC) | payer OTHER ==
[~2023-11-23 09:41] MED LIST changes: +CEPH500 PO
== END 2023-11-23 23:48 | disposition home or self-care (01) ==
LOC: WOUND 09:41
DX: S91.101D Unspecified open wound of right great toe without damage to nail, subsequent encounter (principal); I87.2 Venous insufficiency (chronic) (peripheral); I73.9 Peripheral vascular disease, unspecified; I89.0 Lymphedema, not elsewhere classified; M06.9 Rheumatoid arthritis, unspecified; Z88.8 Allergy status to other drugs, medicaments and biological substances
CPT/HCPCS: G0463

== ENCOUNTER 2023-11-30 08:00 | Day surgery (SDC) | payer OTHER | END 2023-11-30 22:46 | disposition home or self-care (01) | LOC: WOUND 08:00 | DX: S91.101S Unspecified open wound of right great toe without damage to nail, sequela (principal); W01.198S Fall on same level from slipping, tripping and stumbling with subsequent striking against other object, sequela; I87.2 Venous insufficiency (chronic) (peripheral); I73.9 Peripheral vascular disease, unspecified; I89.0 Lymphedema, not elsewhere classified | CPT/HCPCS: G0463 ==

== ENCOUNTER 2023-12-01 09:52 | Day surgery (SDC) | payer OTHER ==
[~2023-12-01] VITALS: Ht 170.2 cm; Wt 120.5 kg
[~2023-12-01 09:52] MED LIST changes: +Lactated Ringer's 1,000 ML IV ONE; +propofoL 40 ML IV ONE
[2023-12-01] MEDS ORDERED: Lactated Ringer's 1,000 ML IV ONE (11:21)
[2023-12-01 15:14] VITALS: BP 164/97
--- NOTE | 2023-12-01 15:59 | NUR ---
12/01/23 1559 Mehul,Sabinaumu LATE ENTRY: PT WAS WAKING UP IN STEP-DOWN, PT BEGAN THRASHING BODY IN BED. RN ATTEMPTED TO CALM PT DOWN WITH THERAPUTIC COMMUNICATION AND TOUCH, PT WAS UNABLE TO CALM DOWN. RN UNABLE TO GET VITALS D/T PT THRASHING AROUND IN BED. NOTED IRREGULAR TACHYPNEIC BREATHING, UNABLE TO GET O2 SATURATIONS ON MONITOR D/T PT UNCONTROLLABLE MOVEMENT IN BED, RN PLACED NON-REBREATHER MASK ON 10L FOR SUPPLIMENTAL O2. THIS RN AND CHARGE NURSE PLACED NEW DRAWSHEET UNDER PT TO BOOST PT IN BED. ONCE BOOSTED, HOB INCREASED TO 90 DEGREES. PT CONTINUED TO THRASH IN BED AND NOT FOLLOWING COMMANDS. PT INADVENTENTLY SCOOTED TOWARDS THE BOTTOM OF THE BED WHILE THRASHING. THIS RN AND TWO OTHER RNS HELPED BOOST PT UP IN BED AGAIN. RN NOTED A LARGE SKIN TEAR ON RIGHT ELBOW THAT OCCURRED DURING PT THRASHING IN BED, SKIN TEAR WAS ROUND ABOUT 2 1/2 INCHES DIAMETER. RN PLACED PRESSURE ON SKIN TEAR. PT DENINED CHEST PAIN, CONTINUED TO BE TACHYPNEIC AND THRASH IN BED. PT STATED SHE WAS IN PAIN AND WANTED TO BE HELPED TO WHEELCHAIR TO ELEVATE PAIN. THIS RN AND 3 OTHER RNS HELPED GUIDE PT TO WHEELCHAIR. A DRESSING WAS PLACED ON SKIN TEAR. DRESSING: TELFA AND ADAPTIC, COVERED IN BULKEE WRAP AND LIZABETH WRAP. AFTER ABOUT 10 MINUTES PT RESPIRATIONS DECREASED TO 24 AND RN WAS ABLE TO GET VITALS. 02 SATURATIONS MAINTAINED AT 100% ON RA. PT COMPLAINED OF "HOT FEET AND LEGS" ICE PACKS PLACED UNDER PT FEET TO HELP WITH DISCOMFORT. PT STATED "THEY GET LIKE THIS WHEN I DO THINGS LIKE THIS". VSS. REPORT GIVEN TO NURSE SPAULDING TO HELP PT WITH DISCHARGE INSTRUCTIONS AND HELP PT GET READY TO BE PICKED UP BY DAUGHTER. RN ADVISED TO LET DAUGHTER KNOW ABOUT SKIN TEAR AND FOLLOW UP WITH PCP TO GET IT LOOKED AT. PT STATED SHE WANTED TO STAND AT EDGE OF THE BED TO HELP W/ DISCOMFORT IN LEGS AND STATED SHE HAS A HISTORY OF RESTLESS LEG SYNDROM. PT STOOD AT EDGE OF THE BED WITH RN SBA AND WHEELCHAIR DIRECTLY BEHIND HER FOR SAFETY, PT STABLE ON FEET WHILE HOLDING EDGE OF THE BED. PT DISCHARGED TO DAUGHTER. DAUGHTER STATED PT HAS BEEN WAKING UP CONFUSED AND AGREED TO FOLLOW UP WITH PCP REGAURDING SKIN TEAR.
== END 2023-12-01 13:40 | disposition home or self-care (01) ==
LOC: ORSCSDS 09:52
PROVIDERS: Internal Medicine Gastroenterology
PROC: 0D757ZZ Dilation of Esophagus, Via Natural or Artificial Opening (ICD-10-PCS; principal; 2023-12-01 11:15)
PROC: 0DB68ZX Excision of Stomach, Via Natural or Artificial Opening Endoscopic, Diagnostic (ICD-10-PCS; principal; 2023-12-01 11:15)
DX: R13.10 Dysphagia, unspecified (principal); K21.9 Gastro-esophageal reflux disease without esophagitis; K31.7 Polyp of stomach and duodenum; R11.2 Nausea with vomiting, unspecified; G47.33 Obstructive sleep apnea (adult) (pediatric); I10 Essential (primary) hypertension; E78.5 Hyperlipidemia, unspecified; M06.9 Rheumatoid arthritis, unspecified; K22.89 Other specified disease of esophagus; J45.909 Unspecified asthma, uncomplicated; Z79.899 Other long term (current) drug therapy
CPT/HCPCS: 88305; J2704; J7120

== ENCOUNTER 2024-04-06 03:58 | Day surgery (SDC) | payer OTHER ==
[~2024-04-06 03:58] MED LIST changes: -Lactated Ringer's 1,000 ML IV ONE; -propofoL 40 ML IV ONE
== END 2024-04-06 22:44 | disposition home or self-care (01) ==
LOC: WOUND
DX: I89.0 Lymphedema, not elsewhere classified (principal); I87.2 Venous insufficiency (chronic) (peripheral); L97.921 Non-pressure chronic ulcer of unspecified part of left lower leg limited to breakdown of skin; L97.911 Non-pressure chronic ulcer of unspecified part of right lower leg limited to breakdown of skin
CPT/HCPCS: G0463

== ENCOUNTER 2024-04-13 03:22 | Day surgery (SDC) | payer OTHER | END 2024-04-13 23:06 | disposition home or self-care (01) | LOC: WOUND 03:22 | DX: I89.0 Lymphedema, not elsewhere classified (principal); I87.2 Venous insufficiency (chronic) (peripheral); L97.921 Non-pressure chronic ulcer of unspecified part of left lower leg limited to breakdown of skin; L97.911 Non-pressure chronic ulcer of unspecified part of right lower leg limited to breakdown of skin ==

== ENCOUNTER 2024-04-15 02:39 | Day surgery (SDC) | payer OTHER | END 2024-04-15 23:16 | disposition home or self-care (01) | LOC: WOUND 02:39 | DX: I89.0 Lymphedema, not elsewhere classified (principal); I87.2 Venous insufficiency (chronic) (peripheral); L97.921 Non-pressure chronic ulcer of unspecified part of left lower leg limited to breakdown of skin; L97.911 Non-pressure chronic ulcer of unspecified part of right lower leg limited to breakdown of skin ==

== ENCOUNTER 2024-04-22 01:42 | Day surgery (SDC) | payer OTHER | END 2024-04-22 22:41 | disposition home or self-care (01) | LOC: WOUND 01:42 | DX: I89.0 Lymphedema, not elsewhere classified (principal); L97.922 Non-pressure chronic ulcer of unspecified part of left lower leg with fat layer exposed; L97.912 Non-pressure chronic ulcer of unspecified part of right lower leg with fat layer exposed; I87.2 Venous insufficiency (chronic) (peripheral) | CPT/HCPCS: G0463 ==

== ENCOUNTER 2024-04-29 05:43 | Day surgery (SDC) | payer OTHER | END 2024-04-29 22:52 | disposition home or self-care (01) | LOC: WOUND 05:43 | DX: L97.822 Non-pressure chronic ulcer of other part of left lower leg with fat layer exposed (principal); L97.812 Non-pressure chronic ulcer of other part of right lower leg with fat layer exposed; I87.2 Venous insufficiency (chronic) (peripheral); I89.0 Lymphedema, not elsewhere classified | CPT/HCPCS: G0463 ==

== ENCOUNTER 2024-05-06 02:00 | Day surgery (SDC) | payer OTHER | END 2024-05-06 23:01 | disposition home or self-care (01) | LOC: WOUND 02:00 | DX: I89.0 Lymphedema, not elsewhere classified (principal); L97.922 Non-pressure chronic ulcer of unspecified part of left lower leg with fat layer exposed; L97.912 Non-pressure chronic ulcer of unspecified part of right lower leg with fat layer exposed; I87.2 Venous insufficiency (chronic) (peripheral) | CPT/HCPCS: G0463 ==

== ENCOUNTER 2024-05-10 02:01 | Day surgery (SDC) | payer OTHER ==
[2024-05-10] MEDS ORDERED: Lidocaine HCl 4% Cream 5 GM ONE (11:01)
== END 2024-05-10 23:17 | disposition home or self-care (01) ==
LOC: WOUND 02:01
DX: I89.0 Lymphedema, not elsewhere classified (principal); L97.922 Non-pressure chronic ulcer of unspecified part of left lower leg with fat layer exposed; L97.912 Non-pressure chronic ulcer of unspecified part of right lower leg with fat layer exposed; I87.2 Venous insufficiency (chronic) (peripheral)
CPT/HCPCS: A9270

== ENCOUNTER 2024-06-02 18:43 | Inpatient (IN) | payer OTHER ==
[~2024-06-02] VITALS: Ht 167.6 cm; Wt 117.9 kg
[~2024-06-02 18:43] MED LIST changes: +FAMO20 PO; +GABA300 PO; +MIRALAX1714 PO; +RECLAST; +SULTRIDS PO
[2024-06-02 19:17] LABS: BASOPHILS ABSOLUTE AUTO 0.03 K/mm3 (0.00-0.23); BASOPHILS PERCENT AUTO 0 % (0-2); EOSINOPHILS ABSOLUTE AUTO 0.73 K/mm3 (0.00-0.68); EOSINOPHILS PERCENT AUTO 6 % (0-6); Hematocrit 33.7 % (33.0-51.0); Hemoglobin 10.7 g/dL (11.5-16.0); IMMATURE GRAN ABSOLUTE AUTO 0.05 K/mm3 (0.00-0.10); IMMATURE GRAN PERCENT AUTO 0 % (0-1); LYMPHOCYTES ABSOLUTE AUTO 1.28 K/mm3 (0.84-5.20); LYMPHOCYTES PERCENT AUTO 11 % (21-46); MONOCYTES ABSOLUTE AUTO 1.35 K/mm3 (0.16-1.47); MONOCYTES PERCENT AUTO 12 % (4-13); Mean Corpuscular HGB 30.4 pg (26.0-34.0); Mean Corpuscular HGB Conc 31.8 g/dL (31.5-36.5); Mean Corpuscular Volume 96 fL (80-100); Mean Platelet Volume 9.9 fL (9.1-12.4); NEUTROPHILS PERCENT AUTO 71 % (41-73); Platelet Count 298 K/mm3 (150-400); RDW Coefficient Variation 14.6 % (11.7-14.2); RDW Standard Deviation 50.8 fL (35.1-46.3); Red Blood Cell Count 3.52 M/mm3 (3.80-5.20); White Blood Cell Count 11.74 K/mm3 (4.00-11.30)
[2024-06-02 19:42] LABS: Albumin, Blood 2.5 g/dL (3.4-5.0); Albumin/Globulin Ratio 0.6 (0.8-1.8); Bilirubin, Total 0.5 mg/dL (0.1-1.0); Bun/Creatinine Ratio 14.9 (12.0-20.0); Calcium, Blood 9.6 mg/dL (8.5-10.1); Creatinine, Blood 1.34 mg/dL (0.40-1.00); Globulin, Blood 4.2 g/dL (2.2-4.0); Phosphorus, Blood 3.3 mg/dL (2.5-4.9); Potassium, Blood 4.7 mmol/L (3.5-5.5); Total Protein, Blood 6.7 g/dL (6.4-8.2)
[2024-06-02 20:20] LABS: Influenza A, PCR NEGATIVE (NEGATIVE); Influenza B, PCR NEGATIVE (NEGATIVE); Resp Syncytial Virus, PCR NEGATIVE (NEGATIVE); SARS-Cov-2 (COVID-19) PCR, MMC NEGATIVE (NEGATIVE)
[2024-06-02 20:22] LABS: Source, Urine Clean Catch
[2024-06-02 20:28] LABS: Appearance, Urine Cloudy (Clear); Bilirubin, Urine Neg (Neg); Blood, Urine 2+ (Neg); Color, Urine Yellow (P-Yellow); Glucose Qualitative, Urine Neg (Neg); Ketones, Urine Neg (Neg); Leukocyte Esterase, Urine 3+ (Neg); Nitrite, Urine Neg (Neg); Protein, Urine 1+ (Neg); Specific Gravity, Urine 1.015 (1.003-1.022); Urobilinogen, Urine NORM (Normal)
[2024-06-02 20:39] LABS: Bacteria Many /hpf; Renal Epithelial Rare /hpf (0-Rare); Squamous Epithelial Cells Mod /hpf (Few); White Blood Cells, Urine 25-50 /hpf (0-5)
[2024-06-02 20:40] LABS: Granular Casts 0-2 /lpf (0); Transitional Epithelial Cells Rare /hpf (0-Rare)
[2024-06-02] MEDS ORDERED: CefTRIAXone Sodium 1,000 MG in NS 100 ML IV ONE (21:10)
[2024-06-02] MEDS ORDERED: CefTRIAXone 1000 MG Vial ONE (21:21)
[2024-06-02] MEDS ORDERED: NS 100 ML IV ONE (21:22)
[2024-06-02] MEDS ORDERED: HYDROcodone 10-APAP 325 TAB PO ONE (22:00)
[2024-06-03] MEDS ORDERED: NS 1,000 ML IV ONE (00:45)
[2024-06-03 03:16] VITALS: BP 148/79
[2024-06-03] MEDS ORDERED: OxyCODONE HCL 5 MG TAB PO PRN (03:45)
[2024-06-03] MEDS ORDERED: Acetaminophen 325 MG TABLET PO PRN (03:45)
[2024-06-03 06:04] LABS: BASOPHILS ABSOLUTE AUTO 0.04 K/mm3 (0.00-0.23); BASOPHILS PERCENT AUTO 0 % (0-2); EOSINOPHILS ABSOLUTE AUTO 0.69 K/mm3 (0.00-0.68); EOSINOPHILS PERCENT AUTO 7 % (0-6); Hematocrit 33.6 % (33.0-51.0); Hemoglobin 10.6 g/dL (11.5-16.0); IMMATURE GRAN ABSOLUTE AUTO 0.03 K/mm3 (0.00-0.10); IMMATURE GRAN PERCENT AUTO 0 % (0-1); LYMPHOCYTES ABSOLUTE AUTO 1.03 K/mm3 (0.84-5.20); LYMPHOCYTES PERCENT AUTO 10 % (21-46); MONOCYTES ABSOLUTE AUTO 1.65 K/mm3 (0.16-1.47); MONOCYTES PERCENT AUTO 15 % (4-13); Mean Corpuscular HGB 30.5 pg (26.0-34.0); Mean Corpuscular HGB Conc 31.5 g/dL (31.5-36.5); Mean Corpuscular Volume 97 fL (80-100); Mean Platelet Volume 9.9 fL (9.1-12.4); NEUTROPHILS ABSOLUTE AUTO 7.25 K/mm3 (1.96-9.15); NEUTROPHILS PERCENT AUTO 68 % (41-73); Platelet Count 278 K/mm3 (150-400); RDW Coefficient Variation 14.6 % (11.7-14.2); RDW Standard Deviation 50.7 fL (35.1-46.3); Red Blood Cell Count 3.47 M/mm3 (3.80-5.20); White Blood Cell Count 10.69 K/mm3 (4.00-11.30)
[2024-06-03 06:27] LABS: Bun/Creatinine Ratio 14.2 (12.0-20.0); Calcium, Blood 9.2 mg/dL (8.5-10.1); Creatinine, Blood 1.34 mg/dL (0.40-1.00); Potassium, Blood 4.7 mmol/L (3.5-5.5)
[2024-06-03 07:18] VITALS: BP 139/65
[2024-06-03] MEDS ORDERED: Lactobacil 2-S.Thermo-Bifido 1 1 Cap PO SCH (09:00)
[2024-06-03] MEDS ORDERED: Enoxaparin 40 MG/0.4 ML SYR SC SCH (09:00)
[2024-06-03] MEDS ORDERED: CefTRIAXone Sodium 1,000 MG in NS 100 ML IV SCH (12:00)
[2024-06-03] MEDS ORDERED: NS 1,000 ML IV SCH (12:45)
[2024-06-03] MEDS ORDERED: Piperacillin/Tazobactam Sod 3.375 GM in NS 100 ML IV SCH (13:17)
[2024-06-03] MEDS ORDERED: Piperacillin/Tazobactam Sod 3.375 GM ONE ×3 (13:38→23:08)
[2024-06-03] MEDS ORDERED: NS 100 ML IV ONE ×3 (13:38→23:08)
[2024-06-03 14:56] VITALS: BP 135/73
[2024-06-03] MEDS ORDERED: PILOCARPINE HCL 5 MG PO PRN (18:00)
[2024-06-03] MEDS ORDERED: Pramipexole DI-HCL 0.25 MG Tab PO PRN (18:05)
[2024-06-03] MEDS ORDERED: HYDROcodone 5-APAP 325 TAB PO PRN (18:05)
[2024-06-03] MEDS ORDERED: Polyethylene Glycol 3350 17 gm PO PRN (18:05)
--- NOTE | 2024-06-03 18:08 | NUR ---
VSS, A-Ox2-3 disoriented to time and sometimes situation, forgetful, denies SOB, shows moderate signs of pain that were well managed with prn oxycodone, ambulates with 1x assist and walker, on RA. Lungs diminished, heart regular, bowel sounds normative, contentent of 1x large BM, BLE wounds open to air per order, with small amount of serousangious drainage. Pt can not make needs known, call quintanilla in hand, bed in lowest postion.
[2024-06-03 20:02] VITALS: BP 122/66
[2024-06-03] MEDS ORDERED: Gabapentin 300 MG Cap PO SCH (21:00)
[2024-06-03] MEDS ORDERED: Famotidine 20 MG Tab PO SCH (21:00)
--- NOTE | 2024-06-04 04:07 | NUR ---
AMPOULE INSPECTOR PATIENT IS A&OX2-3, PATIENT IS DROWSY AND APPEARS WITHDRAWN, VITALS ARE STABLE, ON ROOM AIR, NOT ON TELE. PATIENTLY COMPLAINED OF ITCHNESS ALL OVER BODY, SAID SHE AND HER HAS BEEN FEELING EXTREME ITCHNESS FOR THE PAST FEW WEEKS. PATIENT ALSO COMPLAINED OF PAIN TO BILATERAL LOWER EXTREMITIES FROM WEEPING CELLULITIS WOUNDS, PRN PAIN MEDS GIVEN. WOUNDS ARE LEFT OPEN TO AIR PER MD REQUEST. PATIENT CALLS APPROPRIATELY, USES BEDSIDE COMMODE, BED IN LOW POSITION, CALL LIGHT IN REACH AND BED ALARM IS ON.
[2024-06-04] MEDS ORDERED: Piperacillin/Tazobactam Sod 3.375 GM ONE ×4 (04:38→23:10)
[2024-06-04] MEDS ORDERED: NS 100 ML IV ONE ×4 (04:38→23:10)
[2024-06-04 04:45] VITALS: BP 151/89
[2024-06-04 07:47] VITALS: BP 141/66
[2024-06-04] MEDS ORDERED: Pentoxifylline 400 MG TabCR PO SCH (08:30)
[2024-06-04] MEDS ORDERED: dilTIAZem HCL 120 MG CAP.CD PO SCH (09:00)
[2024-06-04] MEDS ORDERED: DULoxetine HCL 60 MG Capsule DR PO SCH (09:00)
[2024-06-04] MEDS ORDERED: Gabapentin 100 MG Cap PO SCH (09:00)
[2024-06-04] MEDS ORDERED: Folic Acid 1 MG TAB PO SCH (09:00)
[2024-06-04] MEDS ORDERED: Metoprolol Succinate 50 MG TABCR PO SCH (09:00)
[2024-06-04 15:08] VITALS: BP 146/69
--- NOTE | 2024-06-04 16:12 | NUR ---
VSS, A-Ox3-4 disoriented to situation at times, ambulates with 1x assist and walker, denies SOB, states 8 out of10 pain that was well managed with prn oxycodone, on RA. Lungs diminised, heart regular, bowel sounds normative, BLE wounds open to air, with small amount of serous sanganious drainage. Pt can make some needs known, call quintanilla in hand, bed in lowest postion.
[2024-06-04 19:08] VITALS: BP 150/74
[2024-06-04] MEDS ORDERED: Petrolatum/Mineral Oil/Lanolin 1 APPLIC/50 GM Tube TOP SCH (21:00)
[2024-06-04] MEDS ORDERED: Petrolatum Ointment 5 gm TOP SCH (21:00)
[2024-06-05] MEDS ORDERED: Piperacillin/Tazobactam Sod 3.375 GM ONE ×4 (04:08→23:35)
[2024-06-05] MEDS ORDERED: NS 100 ML IV ONE ×4 (04:08→23:35)
[2024-06-05 04:20] VITALS: BP 150/77
[2024-06-05 07:36] VITALS: BP 134/69
[2024-06-05 08:20] LABS: BASOPHILS ABSOLUTE AUTO 0.05 K/mm3 (0.00-0.23); BASOPHILS PERCENT AUTO 1 % (0-2); EOSINOPHILS ABSOLUTE AUTO 1.01 K/mm3 (0.00-0.68); EOSINOPHILS PERCENT AUTO 15 % (0-6); Hematocrit 33.1 % (33.0-51.0); Hemoglobin 10.3 g/dL (11.5-16.0); IMMATURE GRAN ABSOLUTE AUTO 0.02 K/mm3 (0.00-0.10); IMMATURE GRAN PERCENT AUTO 0 % (0-1); LYMPHOCYTES ABSOLUTE AUTO 1.34 K/mm3 (0.84-5.20); LYMPHOCYTES PERCENT AUTO 20 % (21-46); MONOCYTES ABSOLUTE AUTO 1.01 K/mm3 (0.16-1.47); MONOCYTES PERCENT AUTO 15 % (4-13); Mean Corpuscular HGB 30.4 pg (26.0-34.0); Mean Corpuscular HGB Conc 31.1 g/dL (31.5-36.5); Mean Corpuscular Volume 98 fL (80-100); Mean Platelet Volume 9.7 fL (9.1-12.4); NEUTROPHILS ABSOLUTE AUTO 3.17 K/mm3 (1.96-9.15); NEUTROPHILS PERCENT AUTO 48 % (41-73); Platelet Count 303 K/mm3 (150-400); RDW Coefficient Variation 14.5 % (11.7-14.2); RDW Standard Deviation 51.9 fL (35.1-46.3); Red Blood Cell Count 3.39 M/mm3 (3.80-5.20)
[2024-06-05 08:52] LABS: Albumin, Blood 2.1 g/dL (3.4-5.0); Albumin/Globulin Ratio 0.5 (0.8-1.8); Bilirubin, Total 0.5 mg/dL (0.1-1.0); Bun/Creatinine Ratio 8.7 (12.0-20.0); Creatinine, Blood 0.92 mg/dL (0.40-1.00); Globulin, Blood 3.9 g/dL (2.2-4.0); Potassium, Blood 3.7 mmol/L (3.5-5.5)
[2024-06-05] MEDS ORDERED: Mupirocin 2% Ointment 22 GM TOP SCH (12:00)
[2024-06-05 15:46] VITALS: BP 122/58
--- NOTE | 2024-06-05 17:18 | NUR ---
VSS, A-Ox3-4 disoriented and slightly confused to situation at times, denies SOB, states 7 out of 10 pain that was well managed with prn oxycodone, ambulates with 1x assist and walker, on RA. Lungs clear, heart regular, bowel sounds normative, contentint of urine and 1x large BM, BLE wounds dressed with exeroform, abd pads and kerlex per MD, C/D/I. Pt can make needs known, call quintanilla in hand, bed in lowest position.
[2024-06-05 19:26] VITALS: BP 139/65
[2024-06-06 03:45] VITALS: BP 157/83
[2024-06-06] MEDS ORDERED: Piperacillin/Tazobactam Sod 3.375 GM ONE ×2 (04:27→11:40)
[2024-06-06] MEDS ORDERED: NS 100 ML IV ONE ×2 (04:27→11:40)
--- NOTE | 2024-06-06 05:42 | NUR ---
Patient alert and oriented x3, resting comfortably in bed on room air. Bilateral lower extremity wound dressings present, clean, dry, and intact. Patient mobilizing self in bed, turning self frequently. Zosyn tolerated well to left hand PIV.
[2024-06-06 07:58] VITALS: BP 148/83
[2024-06-06] MEDS ORDERED: Bumetanide 1 MG Tab PO SCH (09:00)
[2024-06-06] MEDS ORDERED: Ondansetron 4 MG SoluTab SL PRN (09:25)
[2024-06-06] MEDS ORDERED: Miconazole Nitrate 2% 85 GM PWD TOP SCH (09:25)
[2024-06-06 15:14] VITALS: BP 147/78
--- NOTE | 2024-06-06 19:02 | NUR ---
VSS, A-0x3-4 disoriented to time at times, denies SOB, states 6 out of 10 pain that was well managed with prn oxycodone, ambulates with SB assist and walker, on RA. Lungs diminished, heart regular, bowel sounds normative, conitent of bowel, incontient of urine at times, BLE dressing changed with bactrim ointement on open, auqfrom cream om dry/crackskin, xeroform, Abd pads and kerlex. Pt can make needs known, call quintanilla in hand, bed in lowest position.
[2024-06-06 19:59] VITALS: BP 145/119
[2024-06-07 04:06] VITALS: BP 145/103
[2024-06-07 05:27] LABS: BASOPHILS ABSOLUTE AUTO 0.04 K/mm3 (0.00-0.23); BASOPHILS PERCENT AUTO 1 % (0-2); EOSINOPHILS ABSOLUTE AUTO 1.25 K/mm3 (0.00-0.68); EOSINOPHILS PERCENT AUTO 19 % (0-6); Hematocrit 32.7 % (33.0-51.0); Hemoglobin 10.3 g/dL (11.5-16.0); IMMATURE GRAN ABSOLUTE AUTO 0.04 K/mm3 (0.00-0.10); IMMATURE GRAN PERCENT AUTO 1 % (0-1); LYMPHOCYTES ABSOLUTE AUTO 1.65 K/mm3 (0.84-5.20); LYMPHOCYTES PERCENT AUTO 25 % (21-46); MONOCYTES ABSOLUTE AUTO 1.16 K/mm3 (0.16-1.47); MONOCYTES PERCENT AUTO 18 % (4-13); Mean Corpuscular HGB 30.5 pg (26.0-34.0); Mean Corpuscular HGB Conc 31.5 g/dL (31.5-36.5); Mean Corpuscular Volume 97 fL (80-100); Mean Platelet Volume 9.6 fL (9.1-12.4); NEUTROPHILS ABSOLUTE AUTO 2.49 K/mm3 (1.96-9.15); NEUTROPHILS PERCENT AUTO 38 % (41-73); Platelet Count 319 K/mm3 (150-400); RDW Coefficient Variation 14.5 % (11.7-14.2); RDW Standard Deviation 51.2 fL (35.1-46.3); Red Blood Cell Count 3.38 M/mm3 (3.80-5.20); White Blood Cell Count 6.63 K/mm3 (4.00-11.30)
[2024-06-07 06:03] LABS: Bun/Creatinine Ratio 7.5 (12.0-20.0); Calcium, Blood 8.8 mg/dL (8.5-10.1); Creatinine, Blood 0.8 mg/dL (0.40-1.00); Potassium, Blood 3.1 mmol/L (3.5-5.5)
[2024-06-07 06:57] VITALS: BP 148/74
[2024-06-07 15:19] VITALS: BP 114/57
[2024-06-07 19:21] VITALS: BP 140/56
[2024-06-07] MEDS ORDERED: DiphenhydrAMINE HCL 25 MG Cap PO PRN (22:30)
[2024-06-08] MEDS ORDERED: MethylPREDNISolone Sod Succ 40 MG VIAL IV ONE (03:45)
[2024-06-08 04:08] VITALS: BP 130/59
--- NOTE | 2024-06-08 04:21 | NUR ---
SHIFT SUMMARY PT HAS BEEN HAVING SEVERE ITCHING THIS SHIFT. WHEN ASSESSED, PT HAS RED, RAISED, ITCHY BUMPS TO ABD, ARMS, AND LEGS. WHEN ASKED HOW LONG SHE HAS HAD THE RASH, THE PT STS THAT IT STARTED AFTER SHE WAS ADMITTED TO HOSPITAL. SPOKE TO HOSPITALIST EARLY IN SHIFT AND BENADRYL WAS ORDERED. PT CONTINUES TO HAVE ITCHING THIS AM. HOSPITALIST ORDERED ONE TIME DOSE OF SOLUMEDROL TO BE GIVEN. LEG WOUNDS ARE WRAPPED AND ARE CLEAN DRY AND INTACT. PT BED IN LOW POSITION AND CALL LIGHT IS WITHIN HER REACH. PT MEDICATED FOR PAIN TWICE THIS SHIFT PER EMAR. WILL CONTINUE TO MONITOR.
[2024-06-08 05:46] LABS: BASOPHILS ABSOLUTE AUTO 0.06 K/mm3 (0.00-0.23); BASOPHILS PERCENT AUTO 1 % (0-2); EOSINOPHILS ABSOLUTE AUTO 1.24 K/mm3 (0.00-0.68); EOSINOPHILS PERCENT AUTO 16 % (0-6); Hematocrit 34.9 % (33.0-51.0); Hemoglobin 11.1 g/dL (11.5-16.0); IMMATURE GRAN ABSOLUTE AUTO 0.05 K/mm3 (0.00-0.10); IMMATURE GRAN PERCENT AUTO 1 % (0-1); LYMPHOCYTES ABSOLUTE AUTO 1.24 K/mm3 (0.84-5.20); LYMPHOCYTES PERCENT AUTO 16 % (21-46); MONOCYTES ABSOLUTE AUTO 0.71 K/mm3 (0.16-1.47); MONOCYTES PERCENT AUTO 9 % (4-13); Mean Corpuscular HGB 30.6 pg (26.0-34.0); Mean Corpuscular HGB Conc 31.8 g/dL (31.5-36.5); Mean Corpuscular Volume 96 fL (80-100); Mean Platelet Volume 9.4 fL (9.1-12.4); NEUTROPHILS ABSOLUTE AUTO 4.35 K/mm3 (1.96-9.15); NEUTROPHILS PERCENT AUTO 57 % (41-73); Platelet Count 318 K/mm3 (150-400); RDW Coefficient Variation 14.4 % (11.7-14.2); RDW Standard Deviation 50.3 fL (35.1-46.3); Red Blood Cell Count 3.63 M/mm3 (3.80-5.20); White Blood Cell Count 7.65 K/mm3 (4.00-11.30)
[2024-06-08 06:11] LABS: Bun/Creatinine Ratio 8.1 (12.0-20.0); Calcium, Blood 8.6 mg/dL (8.5-10.1); Creatinine, Blood 0.74 mg/dL (0.40-1.00)
[2024-06-08 07:11] VITALS: BP 150/79
[2024-06-08] MEDS ORDERED: HYDROmorphone HCl/Pf 1MG SYR IV PRN (10:55)
[2024-06-08] MEDS ORDERED: CeFAZolin Sodium 2,000 MG in NS 100 ML IV SCH (12:00)
[2024-06-08 14:54] VITALS: BP 127/65
[2024-06-08] MEDS ORDERED: Triamcinolone Acet 0.5% Cream 15 gm TOP SCH (14:54)
--- NOTE | 2024-06-08 18:36 | NUR ---
PATIENT A/OX3-4, UNABLE TO STATE DATE AND FORGETS DETAILS AT TIMES. VSS, ON RA. PATIENT VERY PAINFUL TO BLE AFTER SHOWER TODAY. DILAUDID GIVEN X1 FOR BREAKTHROUGH PAIN DURING DRESSING CHANGE. RASH TO ARMS, LEGS, CHEST AND BACK POSSIBLY FOR A REACTION TO ZOSYN. PATIENT NOW ON CEFAZOLIN. BENADRYL AND KENALOG CREAM ORDERED TO TREAT ITCHING. WORKED WITH OT TODAY AND WALKED IN HALLS. CONTINENT OF BOWEL AND BLADDER AND CALLS APPROPRIATELY FOR ASSISTANCE. NO NEW CONCERNS THIS SHIFT. PATIENT HOPING TO DC HOME TOMORROW WITH FAMILY.
[2024-06-08] MEDS ORDERED: Potassium Chloride 20 MEQ TabCR PO ONE (20:05)
[2024-06-08 20:35] VITALS: BP 136/67
[2024-06-09] MEDS ORDERED: DiphenhydrAMINE HCl 50 MG/ML 1ML Vial IV ONE (01:35)
[2024-06-09] MEDS ORDERED: Loratadine 10 MG Tab PO ONE (01:35)
[2024-06-09 03:27] VITALS: BP 123/76
--- NOTE | 2024-06-09 05:47 | NUR ---
SHIFT SUMMARY NOC PT A/O X 3-4. CONFUSED AND FORGETFUL AT TIMES, BUT PLEASANT AND COOPERATIVE WITH CARE. VSS. NO ACUTE CHANGES TO REPORT. PT STILL HAVING C/O OF RASH FROM ALLERGIC REACTION TO ZOSYN, THE RASH IS MUCH MORE PREVALENT ON THE RIGHT SIDE T/O, BENADRYL, MEDICATED OINTMENTS, AND POWDER APPLIED TO AFFECTED AREAS. ONE TIME DOSES OF IV BENADRYL 25MG AND CLARITIN 10 MG PO GIVEN. BLE PAIN BEING MANAGED PER EMAR. DRESSING ON BLE ARE C/D/I. PT POTASSIUM3.0 YESTERDAY MORNING WITH NO REPLACEMENT GIVEN, ORDER OBTAINED FOR KCL 60MEQ PO AND REPEAT BMPFOR AM LABS. PT CURRENTLY RESTING WITH BED ALARM ON, BED IN LOWEST POSITION, AND CALL LIGHT WITHIN REACH.
[2024-06-09 05:52] LABS: BASOPHILS ABSOLUTE AUTO 0.02 K/mm3 (0.00-0.23); BASOPHILS PERCENT AUTO 0 % (0-2); EOSINOPHILS ABSOLUTE AUTO 0.05 K/mm3 (0.00-0.68); EOSINOPHILS PERCENT AUTO 1 % (0-6); Hematocrit 33.3 % (33.0-51.0); Hemoglobin 10.5 g/dL (11.5-16.0); IMMATURE GRAN PERCENT AUTO 1 % (0-1); LYMPHOCYTES PERCENT AUTO 20 % (21-46); MONOCYTES ABSOLUTE AUTO 1.67 K/mm3 (0.16-1.47); MONOCYTES PERCENT AUTO 18 % (4-13); Mean Corpuscular HGB 30.3 pg (26.0-34.0); Mean Corpuscular HGB Conc 31.5 g/dL (31.5-36.5); Mean Corpuscular Volume 96 fL (80-100); Mean Platelet Volume 9.7 fL (9.1-12.4); NEUTROPHILS ABSOLUTE AUTO 5.47 K/mm3 (1.96-9.15); NEUTROPHILS PERCENT AUTO 60 % (41-73); NRBC ABSOLUTE 0.02 K/mm3 (0.00-0.02); NRBC Auto 0.2 /100 WBC (0.0-0.2); Platelet Count 343 K/mm3 (150-400); RDW Coefficient Variation 14.6 % (11.7-14.2); RDW Standard Deviation 50.4 fL (35.1-46.3); Red Blood Cell Count 3.47 M/mm3 (3.80-5.20); White Blood Cell Count 9.11 K/mm3 (4.00-11.30)
[2024-06-09 06:22] LABS: Albumin, Blood 2.3 g/dL (3.4-5.0); Albumin/Globulin Ratio 0.6 (0.8-1.8); Bilirubin, Total 0.2 mg/dL (0.1-1.0); Bun/Creatinine Ratio 12.4 (12.0-20.0); Calcium, Blood 8.8 mg/dL (8.5-10.1); Creatinine, Blood 0.81 mg/dL (0.40-1.00); Potassium, Blood 3.1 mmol/L (3.5-5.5); Total Protein, Blood 6.3 g/dL (6.4-8.2)
[2024-06-09 07:35] VITALS: BP 153/76
[2024-06-09] MEDS ORDERED: AQUAPHOR TOP (12:08)
[2024-06-09] MEDS ORDERED: MUPIROCIN1 G1 TOP (12:09)
[2024-06-09] MEDS ORDERED: Triamcinolone A15 G3 TOP (12:10)
[2024-06-09] MEDS ORDERED: Cefadroxil500 MG PO (12:11)
[2024-06-09] MEDS ORDERED: Potassium Chloride 10 Meq Tablet SA PO ONE (12:50)
[2024-06-09] MEDS ORDERED: Cephalexin Monohydrate 250 MG Cap PO ONE (13:05)
--- NOTE | 2024-06-09 16:17 | NUR ---
PATIENT D/C'D TO HOME WITH DAUGHTER. DC INSTRUCTIONS AND EDUCATION DISCUSSED WITH PATIENT AND COPY PROVIDED. RX MEDICATIONS FAXED TO [facility]. PATIENT DENIES ANY FURTHER QUESTIONS OR CONCERNS. HOME HEALTH TO CONTINUE WOUND CARE.
== END 2024-06-09 15:56 | disposition home health service (06) | DRG 689 ==
LOC: ER 18:43 → MEDS 18:44 → ERHOLD 18:44 → ER 18:44 → MEDS 18:44 → ERHOLD 06-03 02:51 → MEDS 06-04 15:40 → ENPENDDIS 06-09 11:42 → MEDS 06-09 15:56
PROVIDERS: Emergency Medicine; Internal Medicine; Nurse Practitioner Acute Care; ADMIT Family Medicine
DX: N39.0 Urinary tract infection, site not specified (principal); G93.41 Metabolic encephalopathy; L03.116 Cellulitis of left lower limb; L03.115 Cellulitis of right lower limb; Z16.39 Resistance to other specified antimicrobial drug; Z68.43 Body mass index [BMI] 50.0-59.9, adult; Z66 Do not resuscitate; I25.10 Atherosclerotic heart disease of native coronary artery without angina pectoris; G89.4 Chronic pain syndrome; I10 Essential (primary) hypertension; K21.9 Gastro-esophageal reflux disease without esophagitis; E78.5 Hyperlipidemia, unspecified; G47.00 Insomnia, unspecified; F41.8 Other specified anxiety disorders; I87.2 Venous insufficiency (chronic) (peripheral); G47.33 Obstructive sleep apnea (adult) (pediatric); M19.90 Unspecified osteoarthritis, unspecified site; I27.20 Pulmonary hypertension, unspecified; E86.0 Dehydration; D63.8 Anemia in other chronic diseases classified elsewhere; M35.00 Sjogren syndrome, unspecified; M81.0 Age-related osteoporosis without current pathological fracture; I73.9 Peripheral vascular disease, unspecified; D50.9 Iron deficiency anemia, unspecified; E66.01 Morbid (severe) obesity due to excess calories; L27.0 Generalized skin eruption due to drugs and medicaments taken internally; I34.0 Nonrheumatic mitral (valve) insufficiency; K58.9 Irritable bowel syndrome, unspecified; G25.81 Restless legs syndrome; M06.9 Rheumatoid arthritis, unspecified; Z98.890 Other specified postprocedural states; Z90.710 Acquired absence of both cervix and uterus; Z90.721 Acquired absence of ovaries, unilateral; Z96.652 Presence of left artificial knee joint; Z88.8 Allergy status to other drugs, medicaments and biological substances; Z79.899 Other long term (current) drug therapy; Z79.891 Long term (current) use of opiate analgesic
CPT/HCPCS: 0241U; 36415; 51701; 71045; 80048; 80053; 81001; 83605; 83735; 84100; 84145; 84484; 85025; 87077; 87086; 87186; 93005; 93010; 93970; 96365; 96366; 96372; 96374; 96375; 96376; 97110; 97116; 97161; 97165; 97530; 97535; 99285-25; A9270; G0378; J0690; J0696; J1170; J1200; J1650; J2543; J2919; J7030

== ENCOUNTER 2024-06-16 01:10 | Day surgery (SDC) | payer OTHER ==
[~2024-06-16 01:10] MED LIST changes: +AQUAPHOR TOP; +Cefadroxil500 MG PO; +MUPIROCIN1 G1 TOP; +Triamcinolone A15 G3 TOP
== END 2024-06-16 22:47 | disposition home or self-care (01) ==
LOC: WOUND 01:10
DX: L97.822 Non-pressure chronic ulcer of other part of left lower leg with fat layer exposed (principal); L97.812 Non-pressure chronic ulcer of other part of right lower leg with fat layer exposed; I89.0 Lymphedema, not elsewhere classified; I87.2 Venous insufficiency (chronic) (peripheral)
CPT/HCPCS: 87070; 87075; 87077; 87186; 87205; G0463

== ENCOUNTER 2024-06-30 03:13 | Day surgery (SDC) | payer OTHER | END 2024-06-30 23:03 | disposition home or self-care (01) | LOC: WOUND 03:13 | DX: L97.822 Non-pressure chronic ulcer of other part of left lower leg with fat layer exposed (principal); L97.812 Non-pressure chronic ulcer of other part of right lower leg with fat layer exposed; I89.0 Lymphedema, not elsewhere classified; I87.2 Venous insufficiency (chronic) (peripheral) | CPT/HCPCS: G0463 ==

== ENCOUNTER 2024-07-07 02:55 | Day surgery (SDC) | payer OTHER | END 2024-07-07 23:00 | disposition home or self-care (01) | LOC: WOUND 02:55 | DX: L97.822 Non-pressure chronic ulcer of other part of left lower leg with fat layer exposed (principal); L97.812 Non-pressure chronic ulcer of other part of right lower leg with fat layer exposed; I89.0 Lymphedema, not elsewhere classified; I87.2 Venous insufficiency (chronic) (peripheral) | CPT/HCPCS: G0463 ==

== ENCOUNTER 2024-07-15 01:03 | Day surgery (SDC) | payer OTHER | END 2024-07-16 02:59 | disposition home or self-care (01) | LOC: WOUND 01:03 | DX: L97.922 Non-pressure chronic ulcer of unspecified part of left lower leg with fat layer exposed (principal); L03.116 Cellulitis of left lower limb; L97.912 Non-pressure chronic ulcer of unspecified part of right lower leg with fat layer exposed; I10 Essential (primary) hypertension; M06.9 Rheumatoid arthritis, unspecified; Z79.899 Other long term (current) drug therapy | CPT/HCPCS: G0463 ==

== ENCOUNTER 2024-07-21 02:09 | Day surgery (SDC) | payer OTHER ==
[2024-07-21] MEDS ORDERED: Lidocaine HCl 4% Cream 5 GM ONE (10:43)
== END 2024-07-22 02:48 | disposition home or self-care (01) ==
LOC: WOUND 02:09
DX: I89.0 Lymphedema, not elsewhere classified (principal); L97.812 Non-pressure chronic ulcer of other part of right lower leg with fat layer exposed; I87.2 Venous insufficiency (chronic) (peripheral)
CPT/HCPCS: A9270

== ENCOUNTER 2024-08-18 03:06 | Day surgery (SDC) | payer OTHER ==
[2024-08-18] MEDS ORDERED: Lidocaine HCl 4% Cream 5 GM ONE (11:05)
== END 2024-08-18 23:00 | disposition home or self-care (01) ==
LOC: WOUND 03:06
DX: I89.0 Lymphedema, not elsewhere classified (principal); I87.2 Venous insufficiency (chronic) (peripheral); I10 Essential (primary) hypertension; M06.9 Rheumatoid arthritis, unspecified; M19.90 Unspecified osteoarthritis, unspecified site
CPT/HCPCS: A9270

== ENCOUNTER 2024-08-25 04:25 | Day surgery (SDC) | payer OTHER ==
[2024-08-25] MEDS ORDERED: Lidocaine HCl 4% Cream 5 GM ONE (12:37)
== END 2024-08-25 23:29 | disposition home or self-care (01) ==
LOC: WOUND 04:25
DX: I89.0 Lymphedema, not elsewhere classified (principal); I87.2 Venous insufficiency (chronic) (peripheral); M06.9 Rheumatoid arthritis, unspecified; Z79.899 Other long term (current) drug therapy
CPT/HCPCS: A9270

== ENCOUNTER 2024-09-15 10:13 | Day surgery (SDC) | payer OTHER ==
[2024-09-15] MEDS ORDERED: Lidocaine HCl 4% Cream 5 GM ONE (10:58)
== END 2024-09-15 23:00 | disposition home or self-care (01) ==
LOC: WOUND 10:13
DX: I89.0 Lymphedema, not elsewhere classified (principal); L97.922 Non-pressure chronic ulcer of unspecified part of left lower leg with fat layer exposed; L97.912 Non-pressure chronic ulcer of unspecified part of right lower leg with fat layer exposed; I87.2 Venous insufficiency (chronic) (peripheral)
CPT/HCPCS: A9270

== ENCOUNTER 2024-09-20 12:29 | Day surgery (SDC) | payer OTHER ==
[~2024-09-20] VITALS: Ht 172.7 cm; Wt 106.8 kg
[~2024-09-20 12:29] MED LIST changes: +Balanced Salt Epinephrine Irrigation Solution 500 mL IR SCH; +Lidocaine HCl/Pf 1% 5 ML VIAL XX SCH; +Moxifloxacin HCL 0.5 MG/0.1 ML 0.4MLSYR RIGHTEYE SCH; +PHENYLEPHRINE\\TROPICAMIDE\\TETRACAINE OPHTHALMIC DILATING SOLN RIGHTEYE PRN; +Povidone-Iodine 450 DROP/30 ML Solution ONE; +Povidone-Iodine 450 DROP/30 ML Solution RIGHTEYE SCH; +Tetracaine HCl/Pf 0.5% Opth Soln 4 ml ONE
[2024-09-20] MEDS ORDERED: Diazepam 2 MG Tab ONE (13:07)
[2024-09-20] MEDS ORDERED: Tetracaine HCl 0.5% Opth Soln 15 ml RIGHTEYE ONE (13:44)
--- NOTE | 2024-09-20 15:01 | NUR ---
09/20/24 1501 Deandre Diana PT'S ARM/HAND SHAKING IN SDU. SHE STATES SHE HAS TREMOR AT BASELINE. B/P 150'S-170'S/70/S-80'S WHEN ARM HELD STILL. PT DENIED CP, SOB, DIZZINESS, NAUSEA, VISUAL DISTURBANCE, AND WEAKNESS. SHE REPORTED SLIGHT MARIN BUT STATED THAT IS COMMON FOR HER . PT'S DAUGHTER STATES HER B/P IS NORMALLY ELEVATED DURING HEALTHCARE APPOINTMENTS. PT INSTRUCTED TO MONITOR B/P AT HOME, AND FOLLOW UP WITH PCP IF IT DOES NOT RETURN TO NORMAL LIMITS. SHE WAS INSTRUCTED TO SEEK IMMEDIATE EMERGENCY CARE FOR CARDIAC SYMPTOMS.
[2024-09-20 15:04] VITALS: BP 159/80
== END 2024-09-20 14:44 | disposition home or self-care (01) ==
LOC: ORSCSDS 12:29
PROVIDERS: Student in an Organized Health Care Education/Training Program
PROC: 08RJ3JZ Replacement of Right Lens with Synthetic Substitute, Percutaneous Approach (ICD-10-PCS; principal; 2024-09-20 14:30)
DX: H25.811 Combined forms of age-related cataract, right eye (principal); Z96.1 Presence of intraocular lens; I10 Essential (primary) hypertension; F41.9 Anxiety disorder, unspecified; E66.01 Morbid (severe) obesity due to excess calories; Z79.899 Other long term (current) drug therapy
CPT/HCPCS: A9270; V2632

== ENCOUNTER 2024-09-22 01:47 | Day surgery (SDC) | payer OTHER ==
[~2024-09-22 01:47] MED LIST changes: -Balanced Salt Epinephrine Irrigation Solution 500 mL IR SCH; -Lidocaine HCl/Pf 1% 5 ML VIAL XX SCH; -Moxifloxacin HCL 0.5 MG/0.1 ML 0.4MLSYR RIGHTEYE SCH; -PHENYLEPHRINE\\TROPICAMIDE\\TETRACAINE OPHTHALMIC DILATING SOLN RIGHTEYE PRN; -Povidone-Iodine 450 DROP/30 ML Solution ONE; -Povidone-Iodine 450 DROP/30 ML Solution RIGHTEYE SCH; -Tetracaine HCl/Pf 0.5% Opth Soln 4 ml ONE
[2024-09-22] MEDS ORDERED: Lidocaine HCl 4% Cream 5 GM ONE (11:21)
== END 2024-09-22 23:00 | disposition home or self-care (01) ==
LOC: WOUND 01:47
DX: L97.822 Non-pressure chronic ulcer of other part of left lower leg with fat layer exposed (principal); L97.812 Non-pressure chronic ulcer of other part of right lower leg with fat layer exposed; I87.2 Venous insufficiency (chronic) (peripheral); I89.0 Lymphedema, not elsewhere classified
CPT/HCPCS: A9270

== ENCOUNTER 2024-09-29 05:36 | Day surgery (SDC) | payer OTHER ==
[2024-09-29] MEDS ORDERED: Lidocaine HCl 4% Topical Soln 50 ML BTL ONE (12:35)
[2024-09-29] MEDS ORDERED: Lidocaine HCl 4% Cream 5 GM ONE (12:36)
== END 2024-09-29 23:00 | disposition home or self-care (01) ==
LOC: WOUND 05:36
DX: I89.0 Lymphedema, not elsewhere classified (principal); I87.2 Venous insufficiency (chronic) (peripheral); M06.9 Rheumatoid arthritis, unspecified
CPT/HCPCS: A9270

== ENCOUNTER 2024-10-13 05:57 | Day surgery (SDC) | payer OTHER ==
[2024-10-13] MEDS ORDERED: Lidocaine HCl 4% Topical Soln 50 ML BTL ONE (13:19)
== END 2024-10-13 23:00 | disposition home or self-care (01) ==
LOC: WOUND 05:57
DX: I89.0 Lymphedema, not elsewhere classified (principal); I87.2 Venous insufficiency (chronic) (peripheral); L97.922 Non-pressure chronic ulcer of unspecified part of left lower leg with fat layer exposed; L97.912 Non-pressure chronic ulcer of unspecified part of right lower leg with fat layer exposed; M06.9 Rheumatoid arthritis, unspecified
CPT/HCPCS: 87070; 87075; 87076; 87077; 87147; 87185; 87186; 87205

== ENCOUNTER 2024-10-17 17:10 | Emergency (ER) | payer OTHER ==
[~2024-10-17] VITALS: Ht 170.2 cm; Wt 101.2 kg
[2024-10-17 17:24] VITALS: BP 175/104
[2024-10-17 18:23] LABS: BASOPHILS ABSOLUTE AUTO 0.03 K/mm3 (0.00-0.23); BASOPHILS PERCENT AUTO 0 % (0-2); EOSINOPHILS ABSOLUTE AUTO 0.25 K/mm3 (0.00-0.68); EOSINOPHILS PERCENT AUTO 2 % (0-6); Hematocrit 38.3 % (33.0-51.0); Hemoglobin 12.2 g/dL (11.5-16.0); IMMATURE GRAN ABSOLUTE AUTO 0.05 K/mm3 (0.00-0.10); IMMATURE GRAN PERCENT AUTO 0 % (0-1); LYMPHOCYTES ABSOLUTE AUTO 0.94 K/mm3 (0.84-5.20); LYMPHOCYTES PERCENT AUTO 8 % (21-46); MONOCYTES ABSOLUTE AUTO 0.75 K/mm3 (0.16-1.47); MONOCYTES PERCENT AUTO 6 % (4-13); Mean Corpuscular HGB 28.4 pg (26.0-34.0); Mean Corpuscular HGB Conc 31.9 g/dL (31.5-36.5); Mean Corpuscular Volume 89 fL (80-100); Mean Platelet Volume 9.4 fL (9.1-12.4); NEUTROPHILS ABSOLUTE AUTO 9.61 K/mm3 (1.96-9.15); NEUTROPHILS PERCENT AUTO 83 % (41-73); Platelet Count 356 K/mm3 (150-400); RDW Coefficient Variation 14.1 % (11.7-14.2); RDW Standard Deviation 45.7 fL (35.1-46.3); White Blood Cell Count 11.63 K/mm3 (4.00-11.30)
[2024-10-17 18:48] LABS: Albumin, Blood 2.6 g/dL (3.4-5.0); Albumin/Globulin Ratio 0.5 (0.8-1.8); Bilirubin, Total 0.4 mg/dL (0.1-1.0); Bun/Creatinine Ratio 36.1 (12.0-20.0); Calcium, Blood 9.2 mg/dL (8.5-10.1); Creatinine, Blood 0.94 mg/dL (0.40-1.00); Globulin, Blood 5.4 g/dL (2.2-4.0); Potassium, Blood 4.7 mmol/L (3.5-5.5)
[2024-10-17] MEDS ORDERED: HYDROcodone 5-APAP 325 TAB PO ONE (22:25)
[2024-10-17] MEDS ORDERED: RX Prepack 6 Tabs Oxycodone 5mg UD ONE ×2 (22:25→22:30)
== END 2024-10-17 22:54 | disposition home or self-care (01) ==
LOC: ER 17:10
PROVIDERS: Student in an Organized Health Care Education/Training Program
DX: Z48.00 Encounter for change or removal of nonsurgical wound dressing (principal); I10 Essential (primary) hypertension; Z88.8 Allergy status to other drugs, medicaments and biological substances; Z88.0 Allergy status to penicillin; Z79.899 Other long term (current) drug therapy
CPT/HCPCS: 80053; 85025; 99283; A9270

== ENCOUNTER 2024-10-20 04:45 | Day surgery (SDC) | payer OTHER ==
[2024-10-20] MEDS ORDERED: Lidocaine HCl 4% Cream 5 GM ONE (13:00)
[2024-10-20] MEDS ORDERED: Miconazole Nitrate 2% 85 GM PWD ONE (13:43)
== END 2024-10-20 23:00 | disposition home or self-care (01) ==
LOC: WOUND 04:45
DX: I89.0 Lymphedema, not elsewhere classified (principal); L97.922 Non-pressure chronic ulcer of unspecified part of left lower leg with fat layer exposed; L97.912 Non-pressure chronic ulcer of unspecified part of right lower leg with fat layer exposed; I87.2 Venous insufficiency (chronic) (peripheral); M06.9 Rheumatoid arthritis, unspecified
CPT/HCPCS: A9270

== ENCOUNTER 2024-10-27 02:04 | Day surgery (SDC) | payer OTHER ==
[2024-10-27] MEDS ORDERED: Lidocaine HCl 4% Cream 5 GM ONE (13:14)
[2024-10-27] MEDS ORDERED: Lidocaine HCl 4% Topical Soln 50 ML BTL ONE (13:14)
== END 2024-10-27 23:00 | disposition home or self-care (01) ==
LOC: WOUND 02:04
DX: I89.0 Lymphedema, not elsewhere classified (principal); I87.2 Venous insufficiency (chronic) (peripheral)
CPT/HCPCS: A9270

== ENCOUNTER 2024-11-02 17:48 | Inpatient (IN) | payer OTHER ==
[~2024-11-02] VITALS: Ht 162.6 cm; Wt 98.7 kg
[~2024-11-02 17:48] MED LIST changes: -Toprol Xl200 MG PO
[2024-11-02 18:11] LABS: BASOPHILS ABSOLUTE AUTO 0.04 K/mm3 (0.00-0.23); BASOPHILS PERCENT AUTO 0 % (0-2); EOSINOPHILS PERCENT AUTO 1 % (0-6); Hematocrit 35.1 % (33.0-51.0); Hemoglobin 11.2 g/dL (11.5-16.0); IMMATURE GRAN ABSOLUTE AUTO 0.07 K/mm3 (0.00-0.10); IMMATURE GRAN PERCENT AUTO 1 % (0-1); LYMPHOCYTES ABSOLUTE AUTO 1.04 K/mm3 (0.84-5.20); LYMPHOCYTES PERCENT AUTO 9 % (21-46); MONOCYTES ABSOLUTE AUTO 1.68 K/mm3 (0.16-1.47); MONOCYTES PERCENT AUTO 15 % (4-13); Mean Corpuscular HGB 27.7 pg (26.0-34.0); Mean Corpuscular HGB Conc 31.9 g/dL (31.5-36.5); Mean Corpuscular Volume 87 fL (80-100); Mean Platelet Volume 9.3 fL (9.1-12.4); NEUTROPHILS ABSOLUTE AUTO 8.36 K/mm3 (1.96-9.15); NEUTROPHILS PERCENT AUTO 74 % (41-73); Platelet Count 319 K/mm3 (150-400); RDW Coefficient Variation 14.6 % (11.7-14.2); RDW Standard Deviation 46.8 fL (35.1-46.3); Red Blood Cell Count 4.05 M/mm3 (3.80-5.20); White Blood Cell Count 11.29 K/mm3 (4.00-11.30)
[2024-11-02 18:36] LABS: Albumin/Globulin Ratio 0.4 (0.8-1.8); Bilirubin, Total 0.7 mg/dL (0.1-1.0); Bun/Creatinine Ratio 13.1 (12.0-20.0); Calcium, Blood 8.6 mg/dL (8.5-10.1); Creatinine, Blood 0.91 mg/dL (0.40-1.00); Globulin, Blood 4.7 g/dL (2.2-4.0); Potassium, Blood 3.6 mmol/L (3.5-5.5); Total Protein, Blood 6.7 g/dL (6.4-8.2)
[2024-11-02] MEDS ORDERED: CEPH250A (18:36)
[2024-11-02] MEDS ORDERED: CIPR100 (18:37)
[2024-11-02] MEDS ORDERED: OXYC5 PO (18:37)
[2024-11-02] MEDS ORDERED: METO50ER (18:38)
[2024-11-02] MEDS ORDERED: MORP15ER (18:38)
[2024-11-02] MEDS ORDERED: Morphine Sulfate 4 MG/1 ML Injection IV ONE (18:45)
[2024-11-02] MEDS ORDERED: RAYOS (19:05)
[2024-11-02] MEDS ORDERED: PILO5 (19:05)
[2024-11-02] MEDS ORDERED: Cefepime HCl 2,000 MG in NS 100 ML IV ONE (19:25)
[2024-11-02] MEDS ORDERED: Lactated Ringer's 1,000 ML IV ONE (19:30)
[2024-11-02] MEDS ORDERED: Vancomycin HCL 2,000 MG in NS 500 ML IV ONE (19:45)
[2024-11-02] MEDS ORDERED: FLU VACC TS2024-25(6MOS UP)/PF 45 MCG/0.5 ML SYRINGE IM ONE (23:00)
[2024-11-02] MEDS ORDERED: Enoxaparin 40 MG/0.4 ML SYR SC SCH (23:00)
[2024-11-02] MEDS ORDERED: FentaNYL Citrate 50 MCG/ML 2 ML Injection IV PRN (23:00)
[2024-11-02] MEDS ORDERED: NS 1,000 ML IV ONE (23:05)
[2024-11-02] MEDS ORDERED: Ondansetron HCl 2 MG / ML 2ML Vial IV PRN (23:05)
[2024-11-02] MEDS ORDERED: Albumin (Human) 25gm/100ml 100 ML IV ONE (23:15)
[2024-11-03] MEDS ORDERED: Cefepime HCl 2,000 MG in NS 100 ML IV ONE (00:25)
--- NOTE | 2024-11-03 00:30 | NUR ---
NEW ADMIT. PATIENT ADMITTED TO ROOM 328 FROM THE ER WITH LLE CELLULITIS. PATIENT ARRIVED TO ROOM IN HER DAY CLOTHES, PERSONAL NAI PAD, AND BED PAD. PATIENT TRANSFERED FROM [facility] TO HOSPITAL BED WITH SLIDE SHEET AND 3P ASSIST. THIS RN GIVEN ABX FOR PATIENT. PATIENT ORIENTED TO ROOM. THIS RN TO ASSUME PATIENT CARE.
[2024-11-03 00:37] VITALS: BP 149/66
[2024-11-03] MEDS ORDERED: NS 1,000 ML IV ONE (01:15)
--- NOTE | 2024-11-03 01:48 | NUR ---
PT TO CT AT 0147
[2024-11-03] MEDS ORDERED: Potassium Chloride 40 MEQ in NS 250 ML IV ONE (02:00)
--- NOTE | 2024-11-03 02:07 | NUR ---
PT RETURNED FROM CT AT 0205
[2024-11-03] MEDS ORDERED: DILT120 PO (02:22)
[2024-11-03] MEDS ORDERED: AQUAPHOR ITCH R28 GM TOP (02:25)
[2024-11-03] MEDS ORDERED: MUPIROCIN1 G1 TOP (02:25)
[2024-11-03] MEDS ORDERED: MIRALAX17 GM PO (02:26)
[2024-11-03] MEDS ORDERED: POTCHL20ER PO (02:27)
[2024-11-03] MEDS ORDERED: Triamcinolone A15 G4 TOP (02:28)
[2024-11-03] MEDS ORDERED: NYAMYC1513 TOP (02:29)
[2024-11-03] MEDS ORDERED: OCUFLOX511 BOTHEYES (02:31)
[2024-11-03] MEDS ORDERED: PRED FORTE5 M1 BOTHEYES (02:31)
[2024-11-03] MEDS ORDERED: KETOROLAC TROMET3 ML BOTHEYES (02:32)
[2024-11-03] MEDS ORDERED: HYDROCODONE-AC1 EAC7 PO (02:36)
[2024-11-03] MEDS ORDERED: Cipro500 MG PO (02:37)
[2024-11-03] MEDS ORDERED: CEPH500 PO (02:38)
[2024-11-03] MEDS ORDERED: METO100ER PO (02:40)
[2024-11-03 03:17] VITALS: BP 151/68
[2024-11-03] MEDS ORDERED: HYDROmorphone HCl/Pf 1MG SYR IV PRN ×3 (03:55→14:00)
--- NOTE | 2024-11-03 05:06 | NUR ---
SHIFT SUMMARY. PATIENT IS A&OX4. PATIENT IS PLEASANT AND COOPERATIVE WITH CARE. PATIENT IN WITH LLE CELLULITIS THAT IS SEVERLY PAINFUL-PATIENT MEDICATED WITH FENTANYL PER ORDERS WITH LITTLE IMPROVEMENT TO PAIN- NOTIFIED OF UNCONTROLLED PAIN AND ORDERED PAITNET DILAUDID-SEE JUDY FOR DETAILS. PATIENTS PAIN APPEARS TO BE IMPROVED MORE WITH THE DILAUDID. PATIENTS LLE REMAINING BAMDAGE REMOVED BY SOAKING IN SALIN FLUSHES TO LOOSEN UP BANDAGES. ALL OPEN AREAS OF WOUND COVERED WITH XEROFORM AND COVERED WITH KERLEX BANDAGE LOOSELY PER ORDER. PATIENT REPORTS THE CELLULITIS TO LLE HAS BEEN AN ONGOING BACK AND FORTH ISSUE BETWEEN HER RIGHT AND LEFT LOWER EXTERMITIES. PATIENT HAS DENIED CHEST PAIN SINCE ARRIVING TO THE FLOOR. PATIENT HAS TELE ON WITH LEADS INTACT-NO NOTED EVENTS. BED IS LOCKED IN THE LOWEST POSITION WITH CALL LIGHT IN REACH. CARE IS ONGOING.
[2024-11-03] MEDS ORDERED: Pramipexole DI-HCL 0.25 MG Tab PO PRN (06:15)
[2024-11-03 06:16] LABS: BASOPHILS ABSOLUTE AUTO 0.04 K/mm3 (0.00-0.23); BASOPHILS PERCENT AUTO 1 % (0-2); EOSINOPHILS ABSOLUTE AUTO 0.37 K/mm3 (0.00-0.68); EOSINOPHILS PERCENT AUTO 5 % (0-6); Hematocrit 30.9 % (33.0-51.0); Hemoglobin 9.6 g/dL (11.5-16.0); IMMATURE GRAN ABSOLUTE AUTO 0.02 K/mm3 (0.00-0.10); IMMATURE GRAN PERCENT AUTO 0 % (0-1); LYMPHOCYTES ABSOLUTE AUTO 0.74 K/mm3 (0.84-5.20); LYMPHOCYTES PERCENT AUTO 11 % (21-46); MONOCYTES ABSOLUTE AUTO 1.16 K/mm3 (0.16-1.47); MONOCYTES PERCENT AUTO 17 % (4-13); Mean Corpuscular HGB 27.4 pg (26.0-34.0); Mean Corpuscular HGB Conc 31.1 g/dL (31.5-36.5); Mean Corpuscular Volume 88 fL (80-100); Mean Platelet Volume 9.7 fL (9.1-12.4); NEUTROPHILS ABSOLUTE AUTO 4.53 K/mm3 (1.96-9.15); NEUTROPHILS PERCENT AUTO 66 % (41-73); Platelet Count 260 K/mm3 (150-400); RDW Coefficient Variation 14.7 % (11.7-14.2); RDW Standard Deviation 47.5 fL (35.1-46.3); Red Blood Cell Count 3.51 M/mm3 (3.80-5.20); White Blood Cell Count 6.86 K/mm3 (4.00-11.30)
[2024-11-03] MEDS ORDERED: HYDROcodone 5-APAP 325 TAB PO PRN (06:20)
[2024-11-03] MEDS ORDERED: Triamcinolone acet. 0.5% Ointment 15 gm TOP PRN (06:20)
[2024-11-03] MEDS ORDERED: Polyethylene Glycol 3350 17 gm PO PRN (06:25)
[2024-11-03] MEDS ORDERED: Acetaminophen 325 MG TABLET PO PRN (06:25)
[2024-11-03 06:38] LABS: Albumin, Blood 2.4 g/dL (3.4-5.0); Albumin/Globulin Ratio 0.6 (0.8-1.8); Bilirubin, Total 0.6 mg/dL (0.1-1.0); Bun/Creatinine Ratio 16.2 (12.0-20.0); Calcium, Blood 8.4 mg/dL (8.5-10.1); Creatinine, Blood 0.74 mg/dL (0.40-1.00); Globulin, Blood 3.9 g/dL (2.2-4.0); Potassium, Blood 3.5 mmol/L (3.5-5.5); Total Protein, Blood 6.3 g/dL (6.4-8.2)
[2024-11-03] MEDS ORDERED: Pantoprazole Sodium 40 MG Tab PO SCH (06:54)
[2024-11-03] MEDS ORDERED: Miconazole Nitrate 2% 85 GM PWD TOP PRN (07:00)
[2024-11-03 07:34] VITALS: BP 132/63
[2024-11-03] MEDS ORDERED: Famotidine 20 MG Tab PO SCH (07:56)
[2024-11-03] MEDS ORDERED: Cefepime HCl 1,000 MG in NS 100 ML IV SCH (08:00)
[2024-11-03] MEDS ORDERED: Pentoxifylline 400 MG TabCR PO SCH (08:30)
[2024-11-03] MEDS ORDERED: Bumetanide 1 MG Tab PO SCH (09:00)
[2024-11-03] MEDS ORDERED: Hydrocortisone 1% Ointment 30 GM Tube TOP SCH (09:00)
[2024-11-03] MEDS ORDERED: Potassium Chloride 20 MEQ TabCR PO SCH (09:00)
[2024-11-03] MEDS ORDERED: DULoxetine HCL 60 MG Capsule DR PO SCH (09:00)
[2024-11-03] MEDS ORDERED: Metoprolol Succinate 50 MG TABCR PO SCH ×2 (09:00)
[2024-11-03] MEDS ORDERED: PrednisoLONE 1% Opth Susp 5 ML BOTHEYES SCH (09:00)
[2024-11-03] MEDS ORDERED: Mupirocin 2% Ointment 22 GM TOP SCH (09:00)
[2024-11-03] MEDS ORDERED: dilTIAZem HCL 120 MG CAP.CD PO SCH (09:00)
[2024-11-03] MEDS ORDERED: Gabapentin 100 MG Cap PO SCH (09:00)
[2024-11-03] MEDS ORDERED: Ketorolac 0.5% Opth Soln BTL BOTHEYES SCH (09:00)
[2024-11-03] MEDS ORDERED: HYDROmorphone HCl/Pf 1MG SYR IV ONE (13:55)
[2024-11-03] MEDS ORDERED: HYDROcodone 10-APAP 325 TAB PO PRN (14:00)
[2024-11-03 16:13] VITALS: BP 124/71
--- NOTE | 2024-11-03 16:43 | NUR ---
Pt is sound asleep. Pt has infections in legs that result in painful wound changing. Pt's daughter was friendly and conversational. Addressed spiritual support systems and coping mechanisms. Pt's daughter "gets a lot of help from upstairs." Pt's family is deeply religous and hopes to have pt attend gnosticism once she recovers. Pt's daughter describes her father's hartmann with brain cancer. Provided compassionate listening and normalized pt's daughters experience. Pt's daughter maintains a positive and hopeful demeanor. Prayer offered. Pt's daughter accepted prayer and appeared relieved by visit. Pt expressed gratitude for prayer and visit.
[2024-11-03] MEDS ORDERED: ARTIFICIAL TEAR15 M2 BOTHEYES (17:18)
--- NOTE | 2024-11-03 18:08 | NUR ---
SHIFT SUMMARY PT AOX4, BR AT THIS TIME DUE TO PAIN IN HER L LEG. DRESSING CHANGED THIS SHIFT, DR. TILLEY DOES NOT WANT THE DRESSING CHANGED UNTIL HE ASSESS THE WOUND AGAIN TOMORROW. OTHERWISE IT WILL BE QSHIFT. MEDICATED FOR PAIN PER THE EMAR. WILL REQUIRE MEDICATION PRIOR TO DRESSING CHANGES. SHE DOES NOT TOLERATE THE CHANGES WELL. FAMILY AT THE BS ALL SHIFT. PURWICK IN PLACE AND PATENT. REPOSITIONED THROUGHOUT THE SHIFT. CALL LIGHT WITHIN REACH, BED LOCKED AND IN THE LOWEST POSITION. WILL REPORT TO ONCOMING NURSE.
[2024-11-03] MEDS ORDERED: Vancomycin HCL 2,000 MG in NS 500 ML IV SCH (20:00)
[2024-11-03] MEDS ORDERED: Vancomycin HCL 1,500 MG in NS 250 ML IV SCH (20:00)
[2024-11-03 20:02] VITALS: BP 109/53
[2024-11-03] MEDS ORDERED: Gabapentin 300 MG Cap PO SCH (21:00)
[2024-11-04] MEDS ORDERED: NS 250 ML IV PRN (00:50)
[2024-11-04 02:56] VITALS: BP 122/58
--- NOTE | 2024-11-04 05:34 | NUR ---
SHIFT SUMMARY. PATIENT IS A&OX4. PATIENT CALLS APPROPRIATELY AND IS ABLE TO MAKE HER NEEDS KNOWN. PATIENT HAS TELE ON WITH LEADS IN PLACE-NO EVENTS NOTED. PATIENT REPORTS PAIN TO LEFT LOWER EXTREMITIES-MEDICATED PER ORDERS WITH IMPROVEMENT TO PAIN. PATIENT REPORTS SHE WAS "ABLE TO SLEEP TONIGHT D/T BETTER PAIN CONTROL". NO DRESSING CHANGE DONE THIS SHIFT D/T PATIENT HAVING 2 DRESSING CHANGES ON 11/03/24. ORTHPEDIC DOCTOR TO SEE PATIENT TODAY 11/04/24 AND DO DRESSING CHANGE. BED IS LOCKED IN THE LOWEST POSITION WITH CALL LIGHT IN REACH. CARE IS ONGOING.
[2024-11-04 06:17] LABS: BASOPHILS ABSOLUTE AUTO 0.04 K/mm3 (0.00-0.23); BASOPHILS PERCENT AUTO 1 % (0-2); EOSINOPHILS PERCENT AUTO 6 % (0-6); Hematocrit 30.4 % (33.0-51.0); Hemoglobin 9.4 g/dL (11.5-16.0); IMMATURE GRAN ABSOLUTE AUTO 0.02 K/mm3 (0.00-0.10); IMMATURE GRAN PERCENT AUTO 0 % (0-1); LYMPHOCYTES ABSOLUTE AUTO 1.08 K/mm3 (0.84-5.20); LYMPHOCYTES PERCENT AUTO 17 % (21-46); MONOCYTES ABSOLUTE AUTO 1.11 K/mm3 (0.16-1.47); MONOCYTES PERCENT AUTO 18 % (4-13); Mean Corpuscular HGB 27.6 pg (26.0-34.0); Mean Corpuscular HGB Conc 30.9 g/dL (31.5-36.5); Mean Corpuscular Volume 89 fL (80-100); Mean Platelet Volume 9.8 fL (9.1-12.4); NEUTROPHILS ABSOLUTE AUTO 3.69 K/mm3 (1.96-9.15); NEUTROPHILS PERCENT AUTO 58 % (41-73); Platelet Count 285 K/mm3 (150-400); RDW Coefficient Variation 14.7 % (11.7-14.2); RDW Standard Deviation 47.6 fL (35.1-46.3); Red Blood Cell Count 3.41 M/mm3 (3.80-5.20); White Blood Cell Count 6.34 K/mm3 (4.00-11.30)
[2024-11-04 06:52] LABS: Albumin, Blood 2.1 g/dL (3.4-5.0); Anion Gap 10 mmol/L (3-11); Blood Urea Nitrogen 11 mg/dL (8-24); Bun/Creatinine Ratio 18.2 (12.0-20.0); CO2, Blood 27 mmol/L (21-32); Calcium, Blood 8.5 mg/dL (8.5-10.1); Chloride, Blood 107 mmol/L (98-108); Creatinine, Blood 0.61 mg/dL (0.40-1.00); Glomerular Filtration Rate 91 (60-); Glucose, Blood 97 mg/dL (70-99); Magnesium, Blood 1.7 mg/dL (1.6-2.4); Phosphorus, Blood 3.1 mg/dL (2.5-4.9); Potassium, Blood 3.7 mmol/L (3.5-5.5); Sodium, Blood 140 mmol/L (136-145)
[2024-11-04 07:41] VITALS: BP 108/58
[2024-11-04] MEDS ORDERED: Silver Sulfadiazine 1% Cream 400 gm TOP SCH (11:30)
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
[2024-11-04 19:24] VITALS: BP 118/51
[2024-11-04 19:40] LABS: Vancomycin, Trough 16.4 ug/mL (5.0-10.0)
[2024-11-04] MEDS ORDERED: Arginine/Glutamine/Calcium Hmb 1 Packet PO SCH (21:00)
[2024-11-05 02:31] VITALS: BP 133/62
--- NOTE | 2024-11-05 04:37 | NUR ---
Pt woke up in excruciating pain, medicated with dilaudid 2mg IVP. A&O x4, VS WNL, tele NSR in 80's. Pt with gd I&O, purwik in place. Pt dressing in place, and day nurse and Pt states dressing change was severe and needed to be soaked off and then dsg change to be quick to limit exposure to air which causes increase in pain. Pt noted to have pain early in shift and was medicated with norco this did not help and then was medicated with dilaudid which did help and Pt was able to rest. day nurse also stated the dsg was only to be changed every day, not BID, will check today as order was not changed.
[2024-11-05 07:21] VITALS: BP 140/70
[2024-11-05] MEDS ORDERED: Metoprolol Succinate 50 MG TABCR PO SCH (09:00)
[2024-11-05] MEDS ORDERED: OxyCODONE HCL 5 MG TAB PO PRN (15:20)
[2024-11-05] MEDS ORDERED: HYDROmorphone HCl/Pf 1MG SYR IV PRN (15:20)
[2024-11-05 15:50] VITALS: BP 125/52
[2024-11-05] MEDS ORDERED: Acetaminophen 500 MG Tab PO SCH (16:00)
--- NOTE | 2024-11-05 16:24 | NUR ---
NOTE PT WORKED WITH PHYSICAL THERAPY THIS AM. PHYSICAL THERAPY STATED PT DANGLED LEGS ON SIDE OF BED WHILE SITTING UPRIGHT WHEN NOTICED BLOOD ON FLOOR. THIS RN CAME TO ASSESS LLE, NOTICED A PUDDLE OF BLOOD ON GROUND AND BED. DR. VILLELA VISUALIZED BLOOD ON FLOOR AND BED. GAVE FENTANYL 50 MCG. DID WOUND CARE DAILY DRESSING CHANGE AT 0900 ORDERED. CLEANED WOUND WITH STERILE WATER AND GAUZE, PLACED XEROFORM TO OPEN MOIST AREAS AND COVERED WITH ABD PAD AND KERLEX DRESSING AND LIZABETH WRAP. PT STATED 8/10 PAIN, GAVE DILAUDID POST WOUND CARE CHANGE. DR. LEROY CAME AT 1200, GAVE NORCO. DR. LEROY SAID OK NOT TO PUT OINTMENT ON WOUND. HE SAID "HE DOESN'T NEED TO CONT. TO SEE PT." TOOK OFF DRESSING SO DR. LEROY VISUALIZED, REAPPLIED DRESSING ORDERED.
--- NOTE | 2024-11-05 17:50 | NUR ---
SHIFT SUMMARY PT A&OX4. PT ADMITTED DUE TO LEFT LEG CELLULITIS. PT ON TELE. PT ON ROOM AIR, PT HAS CONT PULSE OX ON, SPO2 IS 94%. PT REPORTS LOWER LEG PAIN. WOUND CARE COMPLETE X2. PT WORKED WITH PHYSICAL THERAPY THIS AM. PT ON BEDREST DUE TO PAIN. PT REPOSITIONED Q2 HOURS. PT HAS PERWICK, URINE IS YELLOW, ON CONT. SUCTION. PT REPORTS PAIN IN LOWER EXTREMITY, PAIN MANAGED PER EMAR AND DISTRACTION, DEEP BREATHING. PT BED IN LOWEST POSITION. CALL LIGHT IN REACH. PT CALLS APPROPRIATE.
[2024-11-05 19:35] VITALS: BP 113/68
[2024-11-06 02:53] VITALS: BP 125/60
--- NOTE | 2024-11-06 04:37 | NUR ---
Pt A&O x4, VS WNL, tele NSR in 70's. Pt with continuous pulse ox. purwik with adequate output. Pt woke in night several times in severe pain, crying, and moaning noted, medicated with oxycodone 10mg, then dilaudid 2mg x2, then oxycodone 15mg this am. Dressing intact and no bleeding noted. continues on IVABX.
[2024-11-06 06:59] LABS: BASOPHILS ABSOLUTE AUTO 0.05 K/mm3 (0.00-0.23); BASOPHILS PERCENT AUTO 1 % (0-2); EOSINOPHILS ABSOLUTE AUTO 0.67 K/mm3 (0.00-0.68); EOSINOPHILS PERCENT AUTO 12 % (0-6); Hematocrit 31.7 % (33.0-51.0); Hemoglobin 9.6 g/dL (11.5-16.0); IMMATURE GRAN ABSOLUTE AUTO 0.04 K/mm3 (0.00-0.10); IMMATURE GRAN PERCENT AUTO 1 % (0-1); LYMPHOCYTES ABSOLUTE AUTO 1.57 K/mm3 (0.84-5.20); LYMPHOCYTES PERCENT AUTO 27 % (21-46); MONOCYTES ABSOLUTE AUTO 1.18 K/mm3 (0.16-1.47); MONOCYTES PERCENT AUTO 21 % (4-13); Mean Corpuscular HGB 27.2 pg (26.0-34.0); Mean Corpuscular HGB Conc 30.3 g/dL (31.5-36.5); Mean Corpuscular Volume 90 fL (80-100); Mean Platelet Volume 9.9 fL (9.1-12.4); NEUTROPHILS ABSOLUTE AUTO 2.23 K/mm3 (1.96-9.15); NEUTROPHILS PERCENT AUTO 39 % (41-73); Platelet Count 305 K/mm3 (150-400); RDW Coefficient Variation 14.7 % (11.7-14.2); RDW Standard Deviation 47.9 fL (35.1-46.3); Red Blood Cell Count 3.53 M/mm3 (3.80-5.20); White Blood Cell Count 5.74 K/mm3 (4.00-11.30)
[2024-11-06 07:21] LABS: Anion Gap 11 mmol/L (3-11); Blood Urea Nitrogen 24 mg/dL (8-24); Bun/Creatinine Ratio 33.1 (12.0-20.0); CO2, Blood 30 mmol/L (21-32); Chloride, Blood 104 mmol/L (98-108); Creatinine, Blood 0.73 mg/dL (0.40-1.00); Glomerular Filtration Rate 84 (60-); Glucose, Blood 103 mg/dL (70-99); Phosphorus, Blood 3.1 mg/dL (2.5-4.9); Potassium, Blood 3.5 mmol/L (3.5-5.5); Sodium, Blood 141 mmol/L (136-145)
[2024-11-06 08:13] VITALS: BP 145/89
--- NOTE | 2024-11-06 13:13 | NUR ---
NOTE PRE MEDICATED WITH 2MG OF DILAUDID. DID DRESSING CHANGE ON LLE. WOUND HAS SANGUINOUS FLUID. DID NOT APPLY OINTMENTS PER DR. VILLELA. DR. VILLELA VISUALIZED WOUND. CLEANSED WITH STERILE WATER, PLACED XEROFORM TO OPEN MOIST AREAS, COVERED WITH GAUZE THEN WRAPPED WITH KERLIX. APPLIED LIZABETH WRAP.
[2024-11-06 16:04] VITALS: BP 120/53
[2024-11-06 19:31] VITALS: BP 125/53
--- NOTE | 2024-11-06 19:31 | NUR ---
SHIFT SUMMARY PT A&OX4. PT ADMITTED DUE TO LEFT LEG CELLULITIS. PT ON TELE. PT ON ROOM AIR, PT HAS CONT PULSE OX ON, SPO2 IS 95%. PT REPORTS LOWER LEG PAIN. PAIN MANAGED PER EMAR. WOUND CARE COMPLETE. PT WORKED WITH PHYSICAL THERAPY THIS AM AND AMBULATED UP TO CHAIR. PT Q2 TURNED. PT ON BEDREST DUE TO PAIN. PT HAS PERWICK IN URINE IS YELLOW ON CONT. SUCTION. DR. VILLELA PUT IN ORDERS FOR PALLIATIVE CARE FOR PT. PT BED IN LOWEST POSITION. CALL LIGHT IN REACH, CALLS APPROPRIATE.
[2024-11-06 19:32] LABS: Vancomycin, Trough 21.6 ug/mL (5.0-10.0)
[2024-11-06] MEDS ORDERED: Vancomycin HCL 1,500 MG in NS 250 ML IV SCH (22:00)
--- NOTE | 2024-11-07 03:40 | NUR ---
SUMMARY: PT A/OX4, CALLS APPROPRIATELY TO SPECIFY NEEDS AND IS PLEASANT AND COOPERATIVE W/CARE. SHE'S CURRENTLY ON BEDREST R/T L.LEG PAIN MADE WORSE W/MOVEMENT AND MOBILITY. TURN SCHEDULE WAS MAINTAINED AND PHYSALEXA IS CONSULTING. LLE CELLULITIS PERSISTS AND DAILY DX CHANGE WAS DONE ON DAY SHIFT. SCANT AMT OF DRAINAGE NOTED BUT DX REMAINS C/D/I. PRN OXYCODONE, DILAUDID AND SCHEDULED TYLENOL WERE RECEIVED FOR TOLERABLE RELIEF OF ASSOCIATED PAIN. PUREWIC IS IN PLACE FOR FREQUENCY W/URGENCY AND PAINFUL AMBULATION. SHE'S NSR AT 70'S BPM AND NO ECTOPIES WERE REPORTED BY MOBILE LOUNGE DRIVER OR OPERATOR THIS SHIFT. IV INFILTRATED AND A PG WAS PLACED TO MEGHANN. ABX RECEIVED THEN SL'D. NO ACUTE CHANGES, VSS/AFEBRILE. WCTM AND REPORT TO DAY RN.
[2024-11-07 05:08] VITALS: BP 144/68
[2024-11-07 07:06] LABS: BASOPHILS ABSOLUTE AUTO 0.04 K/mm3 (0.00-0.23); BASOPHILS PERCENT AUTO 1 % (0-2); EOSINOPHILS ABSOLUTE AUTO 0.75 K/mm3 (0.00-0.68); EOSINOPHILS PERCENT AUTO 11 % (0-6); Hematocrit 30.5 % (33.0-51.0); Hemoglobin 9.5 g/dL (11.5-16.0); IMMATURE GRAN ABSOLUTE AUTO 0.04 K/mm3 (0.00-0.10); IMMATURE GRAN PERCENT AUTO 1 % (0-1); LYMPHOCYTES ABSOLUTE AUTO 1.56 K/mm3 (0.84-5.20); LYMPHOCYTES PERCENT AUTO 23 % (21-46); MONOCYTES ABSOLUTE AUTO 1.03 K/mm3 (0.16-1.47); MONOCYTES PERCENT AUTO 15 % (4-13); Mean Corpuscular HGB 27.5 pg (26.0-34.0); Mean Corpuscular HGB Conc 31.1 g/dL (31.5-36.5); Mean Corpuscular Volume 88 fL (80-100); Mean Platelet Volume 9.9 fL (9.1-12.4); NEUTROPHILS ABSOLUTE AUTO 3.25 K/mm3 (1.96-9.15); NEUTROPHILS PERCENT AUTO 49 % (41-73); Platelet Count 302 K/mm3 (150-400); RDW Coefficient Variation 14.6 % (11.7-14.2); RDW Standard Deviation 46.5 fL (35.1-46.3); Red Blood Cell Count 3.46 M/mm3 (3.80-5.20); White Blood Cell Count 6.67 K/mm3 (4.00-11.30)
[2024-11-07 07:29] VITALS: BP 115/85
[2024-11-07 07:41] LABS: Albumin, Blood 1.9 g/dL (3.4-5.0); Anion Gap 9 mmol/L (3-11); Blood Urea Nitrogen 25 mg/dL (8-24); Bun/Creatinine Ratio 35.6 (12.0-20.0); CO2, Blood 33 mmol/L (21-32); Calcium, Blood 8.7 mg/dL (8.5-10.1); Chloride, Blood 101 mmol/L (98-108); Glomerular Filtration Rate 88 (60-); Glucose, Blood 108 mg/dL (70-99); Phosphorus, Blood 3.4 mg/dL (2.5-4.9); Potassium, Blood 3.5 mmol/L (3.5-5.5); Sodium, Blood 139 mmol/L (136-145)
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
[2024-11-07 15:45] VITALS: BP 117/70
--- NOTE | 2024-11-07 17:15 | NUR ---
DRESSING CHANGE TO LEFT LOWER EXTREMITY COMPLETED WITH DR. MCINTOSH IN THE ROOM. WOUND CARE ORDERS PER ORTHO DOCTOR ORDER. PREMEDICATED WITH 50 MCG FENT AND PT PAIN WAS TOLERABLE WITH THIS. ESCHAR TO ANTERIOR MONROE/RED/OPEN FROM ANKLE TO BELOW KNEE.
[2024-11-07 21:03] VITALS: BP 103/45
[2024-11-08 04:15] VITALS: BP 125/51
[2024-11-08 05:33] LABS: Bun/Creatinine Ratio 30.8 (12.0-20.0); Calcium, Blood 8.9 mg/dL (8.5-10.1); Creatinine, Blood 0.75 mg/dL (0.40-1.00); Potassium, Blood 3.2 mmol/L (3.5-5.5)
--- NOTE | 2024-11-08 05:37 | NUR ---
SHIFT SUMMARY PATIENT IS ALERT AND ORIENTED. PATIENT HAS HAD NO ACUTE EVENTS THIS SHIFT. VITAL SIGNS REVIEWED. DAY SHIFT NURSE DID DRESSING CHANGES DURING THEIR SHIFT. PATIENT HAS COMPLAINED OF PAIN THIS SHIFT, MEDICATED PER EMAR. PATIENT HAS NO COMPLAINTS OF SOB, NAUSEA, OR VOMITTING THIS SHIFT. IV FLUIDS INFUSED ORDERED. BED IN LOCKED AND LOWEST POSITION. CALL LIGHT IN PLACE.
[2024-11-08 05:53] LABS: BASOPHILS ABSOLUTE AUTO 0.03 K/mm3 (0.00-0.23); BASOPHILS PERCENT AUTO 0 % (0-2); EOSINOPHILS ABSOLUTE AUTO 0.72 K/mm3 (0.00-0.68); EOSINOPHILS PERCENT AUTO 10 % (0-6); Hematocrit 33.7 % (33.0-51.0); Hemoglobin 10.5 g/dL (11.5-16.0); IMMATURE GRAN ABSOLUTE AUTO 0.06 K/mm3 (0.00-0.10); IMMATURE GRAN PERCENT AUTO 1 % (0-1); LYMPHOCYTES PERCENT AUTO 25 % (21-46); MONOCYTES PERCENT AUTO 17 % (4-13); Mean Corpuscular HGB 27.4 pg (26.0-34.0); Mean Corpuscular HGB Conc 31.2 g/dL (31.5-36.5); Mean Corpuscular Volume 88 fL (80-100); Mean Platelet Volume 10.1 fL (9.1-12.4); NEUTROPHILS PERCENT AUTO 46 % (41-73); Platelet Count 326 K/mm3 (150-400); RDW Coefficient Variation 14.7 % (11.7-14.2); RDW Standard Deviation 47.2 fL (35.1-46.3); Red Blood Cell Count 3.83 M/mm3 (3.80-5.20); White Blood Cell Count 6.91 K/mm3 (4.00-11.30)
[2024-11-08] MEDS ORDERED: Potassium Chloride 40 MEQ in NS 250 ML IV ONE (06:10)
[2024-11-08 08:06] VITALS: BP 150/68
[2024-11-08] MEDS ORDERED: GABA100 PO (13:51)
[2024-11-08] MEDS ORDERED: VISBIOME 112.51 EACH PO (13:53)
[2024-11-08 15:25] VITALS: BP 125/58
--- NOTE | 2024-11-08 17:04 | NUR ---
PT DISCHARGED THE PT WAS GIVEN DC ORDERS TO HER AND HER FAMILYBY THE PRIMARY NURSE. PT WAS GIVEN WOUND CARE SUPPLIES, THE PT WAS TRANSFERED VIA WHEELCHAIR ACCOMPANIED BY THE HEAD SUGAR REPROCESS OPERATOR AND HER FAMILY
--- NOTE | 2024-11-08 17:12 | NUR ---
DISCHARGE NOTE PATIENT AND FAMILY EDUCATED ON DISCHARGE PACKET, INSTRUCTIONS/FOLLOW UP APPTS MIDLINE TO LEFT UPPER ARM DC'D. BELONGINGS GATHERED AND RETURNED. OINTMENTS AND EYE DROPS IN MED DRAWER SENT HOME WITH FAMILY. LEFT OVER WOUND CARE SUPPLIES SENT HOME WITH FAMILY. ESCORTED DOWN VIA WHEELCHAIR BY DOSIER OPERATOR. DAUGHTER PICKED UP PATIENT AND TOOK HOME.
== END 2024-11-08 16:57 | disposition home or self-care (01) | DRG 872 ==
LOC: ER 17:48 → MEDS 17:58 → ERHOLD 17:58 → MEDS 11-03 00:46
PROVIDERS: Emergency Medicine; Family Medicine; Student in an Organized Health Care Education/Training Program; ADMIT Internal Medicine
DX: A41.9 Sepsis, unspecified organism (principal); L03.116 Cellulitis of left lower limb; I50.32 Chronic diastolic (congestive) heart failure; I96 Gangrene, not elsewhere classified; Z68.41 Body mass index [BMI] 40.0-44.9, adult; K21.9 Gastro-esophageal reflux disease without esophagitis; E66.9 Obesity, unspecified; G62.9 Polyneuropathy, unspecified; G47.30 Sleep apnea, unspecified; G89.29 Other chronic pain; M19.90 Unspecified osteoarthritis, unspecified site; M79.7 Fibromyalgia; E78.5 Hyperlipidemia, unspecified; I25.10 Atherosclerotic heart disease of native coronary artery without angina pectoris; I11.0 Hypertensive heart disease with heart failure; Z91.048 Other nonmedicinal substance allergy status; G25.81 Restless legs syndrome; Z88.8 Allergy status to other drugs, medicaments and biological substances; Z79.899 Other long term (current) drug therapy; Z79.891 Long term (current) use of opiate analgesic; Z90.710 Acquired absence of both cervix and uterus; Z90.722 Acquired absence of ovaries, bilateral; Z88.0 Allergy status to penicillin; Z98.890 Other specified postprocedural states; Z98.1 Arthrodesis status; Z96.652 Presence of left artificial knee joint; Z71.3 Dietary counseling and surveillance; Z91.199 Patient's noncompliance with other medical treatment and regimen due to unspecified reason
CPT/HCPCS: 36415; 71045; 71260; 73701; 80048; 80053; 80069; 80202; 83605; 83690; 83735; 83880; 84484; 85025; 85379; 87040; 93005; 93010; 93306; 94762; 96374-59; 97110; 97162; 97530; 99285-25; A9270; C1751; J0692; J1171; J1650; J2270; J2405; J3010; J3370; J3480; J7030; J7040; J7050; J7120; P9047; Q9967

== ENCOUNTER 2024-11-15 02:24 | Day surgery (SDC) | payer OTHER ==
[~2024-11-15 02:24] MED LIST changes: +AQUAPHOR ITCH R28 GM TOP; +ARTIFICIAL TEAR15 M2 BOTHEYES; +CEPH250A; +CIPR100; +KETOROLAC TROMET3 ML BOTHEYES; +METO100ER PO; +METO50ER; +MORP15ER; +NYAMYC1513 TOP; +OCUFLOX511 BOTHEYES; +OXYC5 PO; +PILO5; +PRED FORTE5 M1 BOTHEYES; +RAYOS; +Triamcinolone A15 G4 TOP
[2024-11-15] MEDS ORDERED: Lidocaine HCl 4% Cream 5 GM ONE (13:45)
== END 2024-11-15 23:00 | disposition home or self-care (01) ==
LOC: WOUND 02:24
DX: I89.0 Lymphedema, not elsewhere classified (principal); I87.2 Venous insufficiency (chronic) (peripheral)
CPT/HCPCS: A9270

== ENCOUNTER 2024-12-01 02:29 | Day surgery (SDC) | payer OTHER ==
[2024-12-01] MEDS ORDERED: Lidocaine HCl 4% Cream 5 GM ONE (11:10)
== END 2024-12-01 23:00 | disposition home or self-care (01) ==
LOC: WOUND 02:29
DX: I89.0 Lymphedema, not elsewhere classified (principal); L97.922 Non-pressure chronic ulcer of unspecified part of left lower leg with fat layer exposed; L97.912 Non-pressure chronic ulcer of unspecified part of right lower leg with fat layer exposed; I87.2 Venous insufficiency (chronic) (peripheral)
CPT/HCPCS: A9270

== ENCOUNTER 2024-12-08 00:54 | Day surgery (SDC) | payer OTHER ==
[2024-12-08] MEDS ORDERED: Lidocaine HCl 4% Cream 5 GM ONE (10:40)
== END 2024-12-08 23:00 | disposition home or self-care (01) ==
LOC: WOUND 00:54
DX: I89.0 Lymphedema, not elsewhere classified (principal); I87.2 Venous insufficiency (chronic) (peripheral); M06.9 Rheumatoid arthritis, unspecified
CPT/HCPCS: A9270

== ENCOUNTER 2024-12-15 02:31 | Day surgery (SDC) | payer OTHER ==
[2024-12-15] MEDS ORDERED: Lidocaine HCl 4% Cream 5 GM ONE (10:37)
[2024-12-15] MEDS ORDERED: Lidocaine HCl 4% Topical Soln 50 ML BTL ONE (10:51)
== END 2024-12-15 23:00 | disposition home or self-care (01) ==
LOC: WOUND 02:31
DX: I89.0 Lymphedema, not elsewhere classified (principal); L97.922 Non-pressure chronic ulcer of unspecified part of left lower leg with fat layer exposed; L97.912 Non-pressure chronic ulcer of unspecified part of right lower leg with fat layer exposed; I87.2 Venous insufficiency (chronic) (peripheral)
CPT/HCPCS: A9270

== ENCOUNTER 2024-12-29 00:54 | Day surgery (SDC) | payer OTHER ==
[2024-12-29] MEDS ORDERED: Lidocaine HCl 4% Topical Soln 50 ML BTL ONE (11:14)
[2024-12-29] MEDS ORDERED: Lidocaine HCl 4% Cream 5 GM ONE (11:15)
== END 2024-12-29 23:00 | disposition home or self-care (01) ==
LOC: WOUND 00:54
DX: I89.0 Lymphedema, not elsewhere classified (principal); L97.812 Non-pressure chronic ulcer of other part of right lower leg with fat layer exposed; L97.823 Non-pressure chronic ulcer of other part of left lower leg with necrosis of muscle; I87.2 Venous insufficiency (chronic) (peripheral)
CPT/HCPCS: A9270

== ENCOUNTER 2025-01-05 02:32 | Day surgery (SDC) | payer OTHER ==
[2025-01-05] MEDS ORDERED: Lidocaine HCl 4% Cream 5 GM ONE ×2 (11:12→11:13)
[2025-01-05] MEDS ORDERED: Lidocaine HCl 4% Topical Soln 50 ML BTL ONE (11:13)
== END 2025-01-05 23:00 | disposition home or self-care (01) ==
LOC: WOUND 02:32
DX: I89.0 Lymphedema, not elsewhere classified (principal); L97.922 Non-pressure chronic ulcer of unspecified part of left lower leg with fat layer exposed; L97.912 Non-pressure chronic ulcer of unspecified part of right lower leg with fat layer exposed; I87.2 Venous insufficiency (chronic) (peripheral)
CPT/HCPCS: A9270

== ENCOUNTER 2025-01-12 00:13 | Day surgery (SDC) | payer OTHER ==
[2025-01-12] MEDS ORDERED: Lidocaine HCl 4% Cream 5 GM ONE (10:15)
[2025-01-12] MEDS ORDERED: Lidocaine HCl 4% Topical Soln 50 ML BTL ONE (10:15)
== END 2025-01-12 23:00 | disposition home or self-care (01) ==
LOC: WOUND 00:13
DX: L97.823 Non-pressure chronic ulcer of other part of left lower leg with necrosis of muscle (principal); L97.812 Non-pressure chronic ulcer of other part of right lower leg with fat layer exposed; I87.2 Venous insufficiency (chronic) (peripheral); I89.0 Lymphedema, not elsewhere classified
CPT/HCPCS: A9270

== ENCOUNTER 2025-01-18 17:12 | Emergency (ER) | payer OTHER ==
[~2025-01-18] VITALS: Ht 172.7 cm; Wt 103.4 kg
[2025-01-18 18:40] VITALS: BP 148/113
[2025-01-18 19:10] LABS: BASOPHILS ABSOLUTE AUTO 0.04 K/mm3 (0.00-0.23); BASOPHILS PERCENT AUTO 0 % (0-2); EOSINOPHILS ABSOLUTE AUTO 0.48 K/mm3 (0.00-0.68); EOSINOPHILS PERCENT AUTO 4 % (0-6); Hematocrit 35.7 % (33.0-51.0); Hemoglobin 11.3 g/dL (11.5-16.0); IMMATURE GRAN ABSOLUTE AUTO 0.07 K/mm3 (0.00-0.10); IMMATURE GRAN PERCENT AUTO 1 % (0-1); LYMPHOCYTES ABSOLUTE AUTO 0.88 K/mm3 (0.84-5.20); LYMPHOCYTES PERCENT AUTO 7 % (21-46); MONOCYTES ABSOLUTE AUTO 1.05 K/mm3 (0.16-1.47); MONOCYTES PERCENT AUTO 9 % (4-13); Mean Corpuscular HGB 27.6 pg (26.0-34.0); Mean Corpuscular HGB Conc 31.7 g/dL (31.5-36.5); Mean Corpuscular Volume 87 fL (80-100); Mean Platelet Volume 9.8 fL (9.1-12.4); NEUTROPHILS PERCENT AUTO 80 % (41-73); Platelet Count 393 K/mm3 (150-400); RDW Standard Deviation 50.7 fL (35.1-46.3); White Blood Cell Count 12.32 K/mm3 (4.00-11.30)
[2025-01-18 19:40] LABS: Albumin, Blood 2.6 g/dL (3.4-5.0); Albumin/Globulin Ratio 0.5 (0.8-1.8); Bilirubin, Total 0.2 mg/dL (0.1-1.0); Calcium, Blood 9.8 mg/dL (8.5-10.1); Creatinine, Blood 1.25 mg/dL (0.40-1.00); Globulin, Blood 4.9 g/dL (2.2-4.0); Potassium, Blood 4.7 mmol/L (3.5-5.5); Total Protein, Blood 7.5 g/dL (6.4-8.2)
== END 2025-01-18 19:15 | disposition left against medical advice (07) ==
LOC: ER 17:12
PROVIDERS: Emergency Medicine
DX: R41.82 Altered mental status, unspecified (principal); I10 Essential (primary) hypertension; I25.10 Atherosclerotic heart disease of native coronary artery without angina pectoris; K21.9 Gastro-esophageal reflux disease without esophagitis; E78.5 Hyperlipidemia, unspecified; Z88.8 Allergy status to other drugs, medicaments and biological substances; Z88.0 Allergy status to penicillin; Z91.048 Other nonmedicinal substance allergy status; Z79.899 Other long term (current) drug therapy
CPT/HCPCS: 80053; 85025; 93005; 93010; 99282-25

== ENCOUNTER 2025-01-19 04:18 | Day surgery (SDC) | payer OTHER ==
[2025-01-19] MEDS ORDERED: Lidocaine HCl 4% Topical Soln 50 ML BTL ONE (10:22)
[2025-01-19] MEDS ORDERED: Lidocaine HCl 4% Cream 5 GM ONE (10:23)
== END 2025-01-19 23:00 | disposition home or self-care (01) ==
LOC: WOUND 04:18
DX: I89.0 Lymphedema, not elsewhere classified (principal); L97.922 Non-pressure chronic ulcer of unspecified part of left lower leg with fat layer exposed; L97.912 Non-pressure chronic ulcer of unspecified part of right lower leg with fat layer exposed; I87.2 Venous insufficiency (chronic) (peripheral)
CPT/HCPCS: A9270

== ENCOUNTER → 2025-04-05 | Outpatient (CLI) | payer OTHER ==
[2025-04-05 13:11] LABS: BASOPHILS ABSOLUTE AUTO 0.05 K/mm3 (0.00-0.23); BASOPHILS PERCENT AUTO 1 % (0-2); EOSINOPHILS ABSOLUTE AUTO 0.52 K/mm3 (0.00-0.68); EOSINOPHILS PERCENT AUTO 6 % (0-6); Hematocrit 30.2 % (33.0-51.0); Hemoglobin 8.9 g/dL (11.5-16.0); IMMATURE GRAN ABSOLUTE AUTO 0.04 K/mm3 (0.00-0.10); IMMATURE GRAN PERCENT AUTO 1 % (0-1); LYMPHOCYTES ABSOLUTE AUTO 1.59 K/mm3 (0.84-5.20); LYMPHOCYTES PERCENT AUTO 18 % (21-46); MONOCYTES ABSOLUTE AUTO 1.23 K/mm3 (0.16-1.47); MONOCYTES PERCENT AUTO 14 % (4-13); Mean Corpuscular HGB 25.9 pg (26.0-34.0); Mean Corpuscular HGB Conc 29.5 g/dL (31.5-36.5); Mean Corpuscular Volume 88 fL (80-100); NEUTROPHILS ABSOLUTE AUTO 5.21 K/mm3 (1.96-9.15); NEUTROPHILS PERCENT AUTO 60 % (41-73); Platelet Count 271 K/mm3 (150-400); RDW Coefficient Variation 15.3 % (11.7-14.2); Red Blood Cell Count 3.44 M/mm3 (3.80-5.20); White Blood Cell Count 8.64 K/mm3 (4.00-11.30)
[2025-04-05 14:43] LABS: Percent Saturation 4.6 % (15.0-50.0)
== END | disposition home or self-care (01) ==
LOC: LAB 13:02 → LAB SHORT 13:02
PROVIDERS: Physician Assistant
DX: D64.9 Anemia, unspecified (principal); F41.9 Anxiety disorder, unspecified
CPT/HCPCS: 82728; 83540; 83550; 84443; 85025

== ENCOUNTER → 2025-04-20 | Outpatient (CLI) | payer OTHER ==
[2025-04-20 14:40] LABS: Bilirubin, Urine Neg (Neg); Color, Urine Yellow (P-Yellow); Glucose Qualitative, Urine Neg (Neg); Ketones, Urine Neg (Neg); Leukocyte Esterase, Urine 3+ (Neg); Protein, Urine 2+ (Neg); Specific Gravity, Urine 1.020 (1.003-1.022); Urobilinogen, Urine NORM (Normal)
[2025-04-20 14:56] LABS: White Blood Cells, Urine TNTC /hpf (0-5)
== END ==
LOC: LAB 13:13 → LAB SHORT 13:13
PROVIDERS: Physician Assistant
DX: N39.0 Urinary tract infection, site not specified (principal)
CPT/HCPCS: 81001; 87077; 87086; 87186

== ENCOUNTER 2025-05-02 11:11 | Inpatient (IN) | payer OTHER ==
[~2025-05-02] VITALS: Ht 167.6 cm; Wt 91.2 kg
[2025-05-02 12:32] LABS: Source, Urine Straight Cath
[2025-05-02 12:47] LABS: BASOPHILS ABSOLUTE AUTO 0.02 K/mm3 (0.00-0.23); BASOPHILS PERCENT AUTO 0 % (0-2); EOSINOPHILS ABSOLUTE AUTO 0.10 K/mm3 (0.00-0.68); EOSINOPHILS PERCENT AUTO 1 % (0-6); Hematocrit 29.3 % (33.0-51.0); Hemoglobin 8.7 g/dL (11.5-16.0); IMMATURE GRAN ABSOLUTE AUTO 0.04 K/mm3 (0.00-0.10); IMMATURE GRAN PERCENT AUTO 0 % (0-1); LYMPHOCYTES ABSOLUTE AUTO 1.11 K/mm3 (0.84-5.20); LYMPHOCYTES PERCENT AUTO 12 % (21-46); MONOCYTES ABSOLUTE AUTO 1.29 K/mm3 (0.16-1.47); MONOCYTES PERCENT AUTO 14 % (4-13); Mean Corpuscular HGB Conc 29.7 g/dL (31.5-36.5); Mean Corpuscular Volume 88 fL (80-100); NEUTROPHILS ABSOLUTE AUTO 6.83 K/mm3 (1.96-9.15); NEUTROPHILS PERCENT AUTO 73 % (41-73); NRBC ABSOLUTE 0.00 K/mm3 (0.00-0.02); NRBC Auto 0.0 /100 WBC (0.0-0.2); Platelet Count 228 K/mm3 (150-400); RDW Coefficient Variation 17.0 % (11.7-14.2); RDW Standard Deviation 54.6 fL (35.1-46.3)
[2025-05-02 12:56] LABS: Bilirubin, Urine Neg (Neg); Color, Urine Yellow (P-Yellow); Glucose Qualitative, Urine Neg (Neg); Ketones, Urine Neg (Neg); Leukocyte Esterase, Urine 2+ (Neg); Protein, Urine 2+ (Neg); Specific Gravity, Urine 1.020 (1.003-1.022); Urobilinogen, Urine NORM (Normal)
[2025-05-02 13:17] LABS: Red Blood Cells, Urine 0-2 /hpf (0-2)
[2025-05-02] MEDS ORDERED: HYDROcodone 5-APAP 325 TAB PO ONE (13:30)
[2025-05-02 13:33] LABS: Alanine Aminotransfer (ALT/SGP 15.0 U/L (12-78); Albumin, Blood 2.2 g/dL (3.4-5.0); Albumin/Globulin Ratio 0.5 (0.8-1.8); Anion Gap 5.0 mmol/L (3-11); Aspartate Aminotrans (AST/SGOT 22.0 U/L (12-37); Bilirubin, Total 0.6 mg/dL (0.1-1.0); Blood Urea Nitrogen 21.0 mg/dL (8-24); CO2, Blood 32.0 mmol/L (21-32); Calcium, Blood 8.9 mg/dL (8.5-10.1); Chloride, Blood 102.0 mmol/L (98-108); Creatinine, Blood 0.61 mg/dL (0.40-1.00); Globulin, Blood 4.3 g/dL (2.2-4.0); Glucose, Blood 108.0 mg/dL (70-99); Potassium, Blood 4.7 mmol/L (3.5-5.5); Sodium, Blood 134.0 mmol/L (136-145); Total Protein, Blood 6.5 g/dL (6.4-8.2)
[2025-05-02] MEDS ORDERED: CefTRIAXone Sodium 1,000 MG in NS 100 ML IV SCH (15:00)
[2025-05-02] MEDS ORDERED: Diltiazem HCl 5 MG / ML 5ML Vial IV ONE (16:25)
[2025-05-02] MEDS ORDERED: Vancomycin (Pharmacy Consult) IV SCH (16:40)
[2025-05-02] MEDS ORDERED: FentaNYL Citrate 50 MCG/ML 2 ML Injection IV PRN (16:40)
[2025-05-02 18:14] VITALS: BP 153/84
[2025-05-02] MEDS ORDERED: ELIQUIS5 M2 PO (18:38)
[2025-05-02] MEDS ORDERED: Bentyl10 MG PO (18:39)
[2025-05-02] MEDS ORDERED: DUPIXENT300 MG/21 SC (18:41)
[2025-05-02] MEDS ORDERED: ENBREL SUR50 MG/1 M1 SC (18:42)
[2025-05-02] MEDS ORDERED: FOLI1 PO (18:43)
[2025-05-02] MEDS ORDERED: HYDHCL25 PO (18:45)
[2025-05-02] MEDS ORDERED: GABA100 PO (18:45)
[2025-05-02] MEDS ORDERED: METO100ER PO (18:47)
[2025-05-02] MEDS ORDERED: NARCAN4 M1 (18:48)
[2025-05-02] MEDS ORDERED: NYAMYC15 G1 TOP (18:49)
[2025-05-02] MEDS ORDERED: Norco 10-325 T1 EACH PO (18:50)
[2025-05-02] MEDS ORDERED: SENNA LAXATIVE8.6 MG PO (18:52)
[2025-05-02] MEDS ORDERED: Keflex250 MG PO (18:53)
[2025-05-02 20:10] VITALS: BP 144/87
[2025-05-02] MEDS ORDERED: Naloxone HCL 4 MG SPRAY (1 UNIT) PRN (20:40)
[2025-05-02] MEDS ORDERED: Lactobacil 2-S.Thermo-Bifido 1 1 Cap PO SCH (21:00)
[2025-05-02] MEDS ORDERED: HYDROcodone 5-APAP 325 TAB PO PRN (21:00)
[2025-05-02 23:12] VITALS: BP 162/86
[2025-05-03] VITALS (7 sets, daily range): BP systolic 137–182; BP diastolic 88–105
[2025-05-03 04:08] LABS: BASOPHILS ABSOLUTE AUTO 0.03 K/mm3 (0.00-0.23); BASOPHILS PERCENT AUTO 0 % (0-2); EOSINOPHILS ABSOLUTE AUTO 0.27 K/mm3 (0.00-0.68); EOSINOPHILS PERCENT AUTO 4 % (0-6); Hematocrit 29.2 % (33.0-51.0); Hemoglobin 8.7 g/dL (11.5-16.0); IMMATURE GRAN ABSOLUTE AUTO 0.02 K/mm3 (0.00-0.10); IMMATURE GRAN PERCENT AUTO 0 % (0-1); LYMPHOCYTES ABSOLUTE AUTO 1.41 K/mm3 (0.84-5.20); LYMPHOCYTES PERCENT AUTO 18 % (21-46); MONOCYTES ABSOLUTE AUTO 1.16 K/mm3 (0.16-1.47); MONOCYTES PERCENT AUTO 15 % (4-13); Mean Corpuscular HGB Conc 29.8 g/dL (31.5-36.5); Mean Corpuscular Volume 87 fL (80-100); NEUTROPHILS ABSOLUTE AUTO 4.87 K/mm3 (1.96-9.15); NEUTROPHILS PERCENT AUTO 63 % (41-73); NRBC ABSOLUTE 0.00 K/mm3 (0.00-0.02); NRBC Auto 0.0 /100 WBC (0.0-0.2); Platelet Count 245 K/mm3 (150-400); RDW Coefficient Variation 16.8 % (11.7-14.2); RDW Standard Deviation 53.8 fL (35.1-46.3)
[2025-05-03 04:30] LABS: Anion Gap 7.0 mmol/L (3-11); Blood Urea Nitrogen 16.0 mg/dL (8-24); CO2, Blood 29.0 mmol/L (21-32); Calcium, Blood 8.7 mg/dL (8.5-10.1); Chloride, Blood 104.0 mmol/L (98-108); Creatinine, Blood 0.56 mg/dL (0.40-1.00); Glucose, Blood 114.0 mg/dL (70-99); Potassium, Blood 3.9 mmol/L (3.5-5.5); Sodium, Blood 136.0 mmol/L (136-145)
--- NOTE | 2025-05-03 05:45 | NUR ---
SHIFT SUMMARY PT IS A&O X3, ABLE TO MAKE NEEDS KNOWN, MOVING ALL EXTREMITIES WITH PURPOSE/ L AKA, STAFF ASSISTING PT WITH REPOSITIONING PER PT REQUEST, BEDREST AT THIS TIME, PT CONTINUES TO MAKE MOANING NOISES/PT WILL DENY NEEDS AT TIMES/ MOANS WILL STOP DURING CONVERSATION, OBEYS COMMANDS. SPO2 GREATER 90% ON RA, LUNGS SOUND CLEAR T/O, NO SIGNS OF RESPIRATORY DISTRESS. CONTINUOUS TELE MONITORING, SINUS RHYTHM 90-100 S, PULSES PRESENT T/O/ EXCEPT LLE/ HX L AKA, PT DENEIS CHEST P/P T/O THIS SHIFT, BP STABLE WITH MAP GREATER THAN 65. BOWEL TONES PRESENT IN ALL 4Q, PT DENIES FEELINGS OF NAUSEA, OR CONSTIPATION, PT REPORTING BILATERAL UPPER QUADRANT PAIN DURING PALPATION. REPORTING PAIN IN RLE, MEDICATED PER ORDERS. BED LOWEST POSITION, CALL LIGHT IN REACH, AWAITING TO GIVE REPORT TO ONCOMING RN.
[2025-05-03] MEDS ORDERED: Enoxaparin 40 MG/0.4 ML SYR SC SCH (09:00)
[2025-05-03] MEDS ORDERED: HYDROmorphone HCl/Pf 1MG SYR IV ONE (09:00)
--- NOTE | 2025-05-03 09:00 | NUR ---
UPDATE: PT EXTREMELY RESTLESS IN BED, CRYING OUT IN PAIN AND REPORTING 9/10 PAIN. THIS RN PLACED A CALL TO DR MCINTOSH. VERBAL ORDER FOR 0.5 DILAUDID IV NOW OT. PROVIDER ALSO REQUESTING THAT THIS RN CALL THE ONCALL ORTHO DOCTOR TO COME SEE PT. THIS RN CALLED DR TEJADA AND PROVIDER STATED THAT HE WILL BE IN AROUND 1200 TO SEE PT.
--- NOTE | 2025-05-03 10:06 | NUR ---
UPDATE: PT MEDICATED PER EMAR. PT REPORTING 7/10 PAIN AND APPEARS TO BE RESTING COMFORTABLY IN BED. BREATHS EQUAL AND NONLABORED. 98% ON SPO2. CALL LIGHT IN REACH.
[2025-05-03] MEDS ORDERED: HYDROmorphone HCl/Pf 1MG SYR IV PRN (11:15)
--- NOTE | 2025-05-03 11:26 | NUR ---
UPDATE: PT MONITOR SHOWING AFLUTTER IN THE 110-120'S AT [address]3. DR MCINTOSH NOTIFIED AND WILL PLACE ORDERS.
[2025-05-03] MEDS ORDERED: Diltiazem HCl 5 MG / ML 5ML Vial IV ONE (11:35)
--- NOTE | 2025-05-03 17:14 | NUR ---
SHIFT SUMMARY: PT A&OX4. FOLLOWS COMMANDS AND MAKES NEEDS KNOWN TO STAFF. PT IS UNABLE TO AMBULATE AT THIS TIME AND HAS USED THE PUREWICK ALL DAY. PT REMAINED FREE OF CP, PRESSURE, TIGHTNESS AND SOB DURING SHIFT. PT DID GO INTO AFLUTTER THIS MORNING THAT WAS RESOLVED SHORTLY CONVERTED TO SINUS AFTER ADMINISTERING A DILTIZEM PUSH. PT HAS BEEN CRYING OUT FOR PAIN THIS AM. ALL PAIN MEDS WERE DISCONTINUED AND DILAUDID WAS ORDERED DUE TO IT BEING THE ONLY PAIN MED THAT HAS HELPED HER PAIN SINCE ARRIVAL. PT IS STILL IN PAIN OFF AND ON BUT OVERALL IS MORE COMFORTABLE. PT WAS SEEN BY ORTHO TODAY. NO OTHER SIGNIFICANT EVENTS HAVE HAPPENED DURING THIS SHIFT. VSS. MAP >65. WILL CONTINUE TO CARE FOR PT TILL END OF SHIFT.
[2025-05-03] MEDS ORDERED: Metoprolol Tartrate 1 MG/ML 5 ML VIAL IV PRN (23:00)
[2025-05-04] VITALS (9 sets, daily range): BP systolic 94–155; BP diastolic 60–122
--- NOTE | 2025-05-04 00:53 | NUR ---
ASSUMPTION OF CARE/PATIENT UPDATE THIS RN ASSUMED CARE OF PATIENT AT 1900. PT A&O X4. ABLE TO MAKE NEEDS KNOWN. MEDICATED PER EMAR AT BEGINNING OF SHIFT FOR RT KNEE PAIN RATED 10/10. PT NOTED TO BE TOSSING/TURNING IN BED AND MOANING OUT IN PAIN. PT REPORTED GOOD RELIEF FROM PRN IV PAIN MEDS. PT WAS NOTED TO BE IN SR AT BEGINNING OF SHIFT. BP ELEVATED. ON RA WITH SPO2 >92%. AROUND 2245 THIS RN NOTED THAT PATIENT CONVERTED TO AFIB IN THE 140'S. BP STABLE. CALL PLACED TO MD GONSALEZ. WITH ORDER FOR PRN METOPROLOL IV PUSH. PT CONVERTED BACK TO SR WHILE THIS RN ON PHONE WITH PROVIDER. PROVIDER NOTED THAT HE WOULD PLACE ORDER IN CASE SHE CONVERTED LATER. AROUND 0030 PT CONVERTED BACK TO AFIB/FLUTTER IN THE 140-160'S. BP STABLE WITH SBP 140'S. IV METOPROLOL PUSH GIVEN. HR CONTINUED TO BE IN THE 140'S AFTER 10 MINUTES OF MEDICATION ADMINISTRATION, SBP IN THE 90'S AFTER METOPROLOL PUSH. AROUND 0055 PT NOTED TO HAVE CONVERTED BACK TO SR IN THE 90'S. SBP NOW IN THE 130'S. PT DENIES CHEST PAIN/PRESSURE AND SOB. PT DENIES KNEE PAIN AT THIS TIME. ASSISTING WITH REPOSITIONING. PUREWICK IN PLACE DRAINING YELLOW URINE. BED IN LOWEST POSITION AND CALL LIGHT WITHIN REACH.
[2025-05-04 03:38] LABS: BASOPHILS ABSOLUTE AUTO 0.04 K/mm3 (0.00-0.23); BASOPHILS PERCENT AUTO 1 % (0-2); EOSINOPHILS ABSOLUTE AUTO 0.45 K/mm3 (0.00-0.68); EOSINOPHILS PERCENT AUTO 7 % (0-6); Hematocrit 29.1 % (33.0-51.0); Hemoglobin 8.9 g/dL (11.5-16.0); IMMATURE GRAN ABSOLUTE AUTO 0.01 K/mm3 (0.00-0.10); IMMATURE GRAN PERCENT AUTO 0 % (0-1); LYMPHOCYTES ABSOLUTE AUTO 1.23 K/mm3 (0.84-5.20); LYMPHOCYTES PERCENT AUTO 18 % (21-46); MONOCYTES ABSOLUTE AUTO 1.01 K/mm3 (0.16-1.47); MONOCYTES PERCENT AUTO 15 % (4-13); Mean Corpuscular HGB Conc 30.6 g/dL (31.5-36.5); Mean Corpuscular Volume 86 fL (80-100); NEUTROPHILS ABSOLUTE AUTO 3.93 K/mm3 (1.96-9.15); NEUTROPHILS PERCENT AUTO 59 % (41-73); NRBC ABSOLUTE 0.00 K/mm3 (0.00-0.02); NRBC Auto 0.0 /100 WBC (0.0-0.2); Platelet Count 250 K/mm3 (150-400); RDW Coefficient Variation 16.5 % (11.7-14.2); RDW Standard Deviation 52.5 fL (35.1-46.3)
[2025-05-04 03:57] LABS: Anion Gap 8.0 mmol/L (3-11); Blood Urea Nitrogen 14.0 mg/dL (8-24); CO2, Blood 31.0 mmol/L (21-32); Calcium, Blood 8.5 mg/dL (8.5-10.1); Chloride, Blood 103.0 mmol/L (98-108); Creatinine, Blood 0.5 mg/dL (0.40-1.00); Glucose, Blood 110.0 mg/dL (70-99); Potassium, Blood 3.4 mmol/L (3.5-5.5); Sodium, Blood 139.0 mmol/L (136-145)
--- NOTE | 2025-05-04 04:39 | NUR ---
SHIFT SUMMARY SEE PREVIOUS NOTE SINCE PREVIOUS NOTE, PT HAS REMAINED IN SR WITH HR 80-90'S. BP STABLE. ON RA WITH SPO2 >92%. DENIES CHEST PAIN/PRESSURE. MEDICATED PER EMAR FOR RT LEG/KNEE PAIN. USING PUREWICK FOR ACCURATE I'S/O'S. BED IN LOWEST POSITION AND CALL LIGHT WITHIN REACH. BED ALARM ON FOR SAFETY. THIS RN WILL REPORT TO ONCOMING DAYSHIFT RN.
[2025-05-04] MEDS ORDERED: Potassium Chloride 10 Meq Tablet SA PO ONE (14:00)
--- NOTE | 2025-05-04 14:06 | NUR ---
Pt. is awake in bed when she welcomes my visit. Pt. i spleasant but displays evidence of being in discomfort. Facilitate a life review and consider matters of farhan and belief. Pt. displays evidence of trust and a measure of rapport is established. Prayed with the Pt. Pt. verbalized gratitude for the spiritual care visit and also requested this supervisor aluminum fabrication to contact her diesel stationary engineer.
--- NOTE | 2025-05-04 17:35 | NUR ---
SHIFT SUMMARY: PT A&OX4. FOLLOWS COMMANDS AND MAKES NEEDS KNOWN TO STAFF. PT DANGLED AT BEDSIDE TODAY BUT DID NOT GET UP TOMORROW. PT AND OT PLAN TO WORK WITH PT TOMORROW. PT EXPRESSED FEARS OF GETTING OUT OF BED OR WHEELCHAIR DUE TO HAVING MULTIPLE FALLS AT HOME. PT HAS HAD NO RESPIRATORY, CARDIAC, OR NEURO CHANGED DURING THIS SHIFT. NO SIGNIFICANT EVENTS HAPPENED DURING THIS SHIFT. WILL CONTINUE TO CARE FOR PT TILL END OF SHIFT.
[2025-05-04 17:51] LABS: Vancomycin, Trough 13.8 ug/mL (5.0-10.0)
--- NOTE | 2025-05-04 18:23 | NUR ---
UPDATE: PT HR CONVERTED TO AFIB. THIS RN APPEMPTED TO CONTACT PROVIDER WITH NO ANSWER. PT DENIES ANY CP, PRESSURE, TIGHTNESS OR SOB.
[2025-05-04] MEDS ORDERED: Diltiazem HCl 5 MG / ML 5ML Vial IV ONE (18:45)
--- NOTE | 2025-05-04 18:45 | NUR ---
THIS RN SPOKE WITH DR ABREU REGARDING PTS AFIB AND HR AND EXPRESSED CONCERN WITH USING LORESSOR THAT WAS ORDERED PRN DUE TO SBP DROPPING 50 POINTS LAST NIGHT WHEN USED. VERBAL ORDER FOR 10MG CARDIZEM IV OT NOW.
--- NOTE | 2025-05-04 19:50 | NUR ---
ASSUMPTION OF CARE ASSUMED PT'S CARE AT 1900,BEDSIDE REPORT COMPLETED.PT SITTING UP IN BED WATCHING TV,PT'S DAUGHTER AT BEDSIDE.PLAN OF CARE REVIEWED.PT'S DAUGHTER'S QUESTIONS ANSWERED TO THE BEST OF OUR ABILITY,PT SATISFIED BY THE ANSWERS AT THIS TIME.STATES THAT SHE HAS MORE QUESTIONS FOR THE PROVIDER.PT AND DAUGHTER ENCOURAGED TO ASK QUESTIONS.PT DENIES PAIN,DENIES NEEDS AT THIS TIME.CALL LIGHT AND PT'S ITEMS WITHIN REACH.MONITORING ONGOING PER CAREPLAN.
[2025-05-05 00:08] VITALS: BP 145/66
[2025-05-05 04:15] LABS: Anion Gap 7.0 mmol/L (3-11); BASOPHILS ABSOLUTE AUTO 0.04 K/mm3 (0.00-0.23); BASOPHILS PERCENT AUTO 1 % (0-2); Blood Urea Nitrogen 17.0 mg/dL (8-24); CO2, Blood 32.0 mmol/L (21-32); Calcium, Blood 8.4 mg/dL (8.5-10.1); Chloride, Blood 103.0 mmol/L (98-108); Creatinine, Blood 0.5 mg/dL (0.40-1.00); EOSINOPHILS ABSOLUTE AUTO 0.73 K/mm3 (0.00-0.68); EOSINOPHILS PERCENT AUTO 10 % (0-6); Glucose, Blood 112.0 mg/dL (70-99); Hematocrit 30.0 % (33.0-51.0); Hemoglobin 8.9 g/dL (11.5-16.0); IMMATURE GRAN ABSOLUTE AUTO 0.01 K/mm3 (0.00-0.10); IMMATURE GRAN PERCENT AUTO 0 % (0-1); LYMPHOCYTES ABSOLUTE AUTO 1.73 K/mm3 (0.84-5.20); LYMPHOCYTES PERCENT AUTO 25 % (21-46); MONOCYTES ABSOLUTE AUTO 1.09 K/mm3 (0.16-1.47); MONOCYTES PERCENT AUTO 16 % (4-13); Mean Corpuscular HGB Conc 29.7 g/dL (31.5-36.5); Mean Corpuscular Volume 87 fL (80-100); NEUTROPHILS ABSOLUTE AUTO 3.40 K/mm3 (1.96-9.15); NEUTROPHILS PERCENT AUTO 49 % (41-73); NRBC ABSOLUTE 0.02 K/mm3 (0.00-0.02); NRBC Auto 0.3 /100 WBC (0.0-0.2); Platelet Count 270 K/mm3 (150-400); Potassium, Blood 3.1 mmol/L (3.5-5.5); RDW Coefficient Variation 16.5 % (11.7-14.2); RDW Standard Deviation 52.3 fL (35.1-46.3); Sodium, Blood 139.0 mmol/L (136-145)
[2025-05-05 04:17] VITALS: BP 160/77
--- NOTE | 2025-05-05 06:12 | NUR ---
PATIENT MONITORED DURING THE SHIFT,PT SLEPT ON/OFF .REPOSITIONED Q2H AND MORE REQUENTLY PER PT'S REQUEST.PT GIVEN PRN PAIN MEDICATION ORDERED PER PT'S REQUEST.PT HAS BEEN IN SINUS RHYTHM WITH HR 70'S-80'S.PT WIDE AWAKE RESTING IN BED,PT REPOSITIONED AT THIS TIME.PT DENIES PAIN,DENIES NEEDS.CALL LIGHT AND PT'S ITEMS WITHIN REACH.MONITORING ONGOING PER CAREPLAN.
[2025-05-05 07:58] VITALS: BP 163/84
[2025-05-05] MEDS ORDERED: HYDROcodone 5-APAP 325 TAB PO PRN (09:50)
[2025-05-05] MEDS ORDERED: Cefepime HCl 1,000 MG in NS 100 ML IV SCH (14:00)
--- NOTE | 2025-05-05 14:07 | NUR ---
Pt. is awake and welcomes my visit. Pt. is very pleasant. Family is at bedsisde. Facilitated an update and Pt. verbalized an expectation to be discharged home tomorrow. Pt. displays evidence of a positive and hopeful spirit. Considered matters of farhan and belief as rapport with pt. and family is re-established. Pryaed with Pt. and family. All present verbalized gratitude for the spiritual care visit and prayer.
[2025-05-05] MEDS ORDERED: NS 250 ML IV PRN (15:00)
--- NOTE | 2025-05-05 15:18 | NUR ---
PT TRANSFERRED TO 334 PT TRANSITIONED TO MEDICAL STATUS WITH TELE. PT'S HRR REMAINED SR IN THE 90'S. PT DENIES CHEST PAIN/PRESSURE SBP IN THE 150'S, SATS ABOVE 95% ON RA, AFEBIRLE. PT ABLE TO WORK WITH PT/OT RECOMMENDING HOME HEALTH. PT ABLE TO SIT ON THE SIDE OF THE BED. DR DAYNA AMARO ON PT RECOMMENDED KEEPING PT FOR ONE MORE DAY, ULTRASOUND OF LEG ODERED TO R/O DVT. AND CASTRO OLVERA ON RLE AND WAS PLACED. PAIN MANAGED SWITCH TO ORAL AND IS WELL CONTROLLED AT THIS POINT. FAMILY WAS AT THE BEDSIDE AND WAS GIVEN UPDATES REGARDING PT'S STATUS. PUREWICK REMAINED IN PLACE PT PUT OUT ABOUT 2L OF URINE CLEAR IN COLOR. NO OTHER ISSUES REPORTED FOR THE SHIFT PT HAS BEEN CALLING APPROPRIATELY, ALL BELONGINGS SENT WITH THE PT
[2025-05-05 15:24] VITALS: BP 143/64
--- NOTE | 2025-05-05 15:37 | NUR ---
PT TRANSFERRED FROM PCU TO MEDICAL UNIT AT APPROX 1450. PT REPORTS 04/20 BACK/R KNEE PAIN - TREATED PER EMAR. PT DENIES ANY OTHER CONCERNS OR NEEDS. VITALS STABLE. IV ANTIBIOTICS STARTED. PUREWICK IN PLACE. DRESSING ON R LEG C/D/I, COMPRESSION STOCKING IN PLACE. TELE MONITOR ON. PT DENIES CHEST PAIN/PRESSURE. WATER PROVIDER. FAMILY AT BEDSIDE. CALL LIGHT WITHIN REACH.
[2025-05-05 19:48] VITALS: BP 149/97
[2025-05-05 23:25] VITALS: BP 147/103
[2025-05-06 05:39] VITALS: BP 157/83
[2025-05-06 05:53] LABS: BASOPHILS ABSOLUTE AUTO 0.06 K/mm3 (0.00-0.23); BASOPHILS PERCENT AUTO 1 % (0-2); EOSINOPHILS ABSOLUTE AUTO 0.86 K/mm3 (0.00-0.68); EOSINOPHILS PERCENT AUTO 11 % (0-6); Hematocrit 32.1 % (33.0-51.0); Hemoglobin 9.8 g/dL (11.5-16.0); IMMATURE GRAN ABSOLUTE AUTO 0.03 K/mm3 (0.00-0.10); IMMATURE GRAN PERCENT AUTO 0 % (0-1); LYMPHOCYTES ABSOLUTE AUTO 2.01 K/mm3 (0.84-5.20); LYMPHOCYTES PERCENT AUTO 26 % (21-46); MONOCYTES ABSOLUTE AUTO 1.10 K/mm3 (0.16-1.47); MONOCYTES PERCENT AUTO 14 % (4-13); Mean Corpuscular HGB Conc 30.5 g/dL (31.5-36.5); Mean Corpuscular Volume 86 fL (80-100); NEUTROPHILS ABSOLUTE AUTO 3.65 K/mm3 (1.96-9.15); NEUTROPHILS PERCENT AUTO 47 % (41-73); NRBC ABSOLUTE 0.00 K/mm3 (0.00-0.02); NRBC Auto 0.0 /100 WBC (0.0-0.2); Platelet Count 295 K/mm3 (150-400); RDW Coefficient Variation 16.4 % (11.7-14.2); RDW Standard Deviation 51.2 fL (35.1-46.3)
[2025-05-06 06:28] LABS: Anion Gap 6.0 mmol/L (3-11); Blood Urea Nitrogen 17.0 mg/dL (8-24); CO2, Blood 33.0 mmol/L (21-32); Calcium, Blood 9.1 mg/dL (8.5-10.1); Chloride, Blood 103.0 mmol/L (98-108); Creatinine, Blood 0.52 mg/dL (0.40-1.00); Glucose, Blood 116.0 mg/dL (70-99); Potassium, Blood 3.4 mmol/L (3.5-5.5); Sodium, Blood 139.0 mmol/L (136-145)
--- NOTE | 2025-05-06 07:23 | NUR ---
Shift Summary AOx4. Difficulty sleeping tonight, it appears this is a chronic issue. Patient c/o pain tonight, moaning and groaning outloud but easily consolable and agreeable to position changes. Patient even sat up at the edge of the bed to sew. Daughter reports mirapex is ordered q4 hours prn at home; home med rec updated to reflect current frequency of mirapex. Daughter also claims that patient needs to get the mirapex q4h throughout the day or she will have a tough time with pain keeping her up at night. Patient missed 12 hours of mirapex and is, in fact, having a hard time falling asleep due to pain. Dressing to RLE changed, TEDs removed for the night, SCD to RLE applied and patient seems to be tolerating it. Patient expresses concern for RLE being amputated like her LLE. Advised to keep swelling in R leg controlled with compression socks and elevation to prevent blisters and ulcer formation ultimating putting herself at risk for infection. Patient verbalized understanding. Tele: PVC [id number]. Pt looking forward to discharging in the AM.
[2025-05-06 08:01] VITALS: BP 168/102
[2025-05-06 12:50] VITALS: BP 152/95
--- NOTE | 2025-05-06 13:12 | NUR ---
NOTE PT POTASSIUM 3.4. CALLED TO NOTIFY DR. MCINTOSH. DR. MCINTOSH ORDERED ORAL DOSE OF POTASSIUM. THIS RN GAVE PT REPLENISHED PO POTASSIUM. DR. MCINTOSH ROUNDED ON PT. THIS RN REPORTED TO DR. MCINTOSH, PT REPORTED "WET LUNGS. WHEEZY AT TIMES." DR. MCINTOSH REPORTED "WILL ORDER BREATHING TREATMENTS WITH RT." DR. MCINTOSH REPORTED "PT SHOULD HAVE CASTRO HOSE ON R LEG TO HELP SWELLING." THIS RN APPLIED CASTRO HOSE TO R LEG, THIGH HIGH. PT REPORTS HAVING MIRAPEX Q4 AT HOME. DR. MCINTOSH REPORTED WILL UPDATE Q6 MIRAPEX ORDER.
[2025-05-06] MEDS ORDERED: HydrALAZINE HCl 20 MG / ML 1ML Vial IV PRN (14:25)
[2025-05-06 14:55] VITALS: BP 156/90
--- NOTE | 2025-05-06 19:14 | NUR ---
SHIFT SUMMARY PT A&OX4. PT ADMITTED DUE TO PERICARDITIS AND R LEG CELLULITIS. PT REPORTS PAIN, MANAGED PER EMAR. PT EATS ADEQUATE. PT HAS PERICK IN PLACE, DRAINING ADEQUATE WAS REPLACED TODAY. USES BEDPAN FOR BM. PT CONT. PT GOT IV ANTIBIOTIC TODAY. PT HAD CASTRO HOSE ON R LEG DURING SHIFT. WOUND CARE COMPLETE ORDERED. PT ON TELE, NO REPORTS NOTED. RESPIRATORY CARE COME TO ASSESS. PT IN BED, BED IN LOWEST POSITION, CALL LIGHT IN REACH.
[2025-05-06 20:57] VITALS: BP 147/75
[2025-05-06 23:15] VITALS: BP 149/67
--- NOTE | 2025-05-06 23:54 | NUR ---
NSR => Afib => NSR Around 2256, notified by telephone clerk that patient had just converted to afib from NSR. Moments later, telephone clerk called saying patient lead had become unattached. Entered room to find patient scratching self saying she is itchy all over. The tele sticker was off. Patient's skin noted to be dry. Pt also c/o pain, no other complaints at this time. Obtained vitals and gave medicated for pain. At around 2320, patient spontaneously converted back to NSR. Decision to not call the earth sciences professor was made due to being asymptomatic and spontaneous resolution of irregular rhytmn back to NSR. Did inform anthropological linguistLIN Baldwin. Will continue to monitor.
[2025-05-07 04:59] VITALS: BP 153/81
[2025-05-07 05:35] LABS: BASOPHILS ABSOLUTE AUTO 0.04 K/mm3 (0.00-0.23); BASOPHILS PERCENT AUTO 1 % (0-2); EOSINOPHILS ABSOLUTE AUTO 1.00 K/mm3 (0.00-0.68); EOSINOPHILS PERCENT AUTO 11 % (0-6); Hematocrit 35.9 % (33.0-51.0); Hemoglobin 10.9 g/dL (11.5-16.0); IMMATURE GRAN ABSOLUTE AUTO 0.03 K/mm3 (0.00-0.10); IMMATURE GRAN PERCENT AUTO 0 % (0-1); LYMPHOCYTES ABSOLUTE AUTO 2.21 K/mm3 (0.84-5.20); LYMPHOCYTES PERCENT AUTO 25 % (21-46); MONOCYTES ABSOLUTE AUTO 0.94 K/mm3 (0.16-1.47); MONOCYTES PERCENT AUTO 11 % (4-13); Mean Corpuscular HGB Conc 30.4 g/dL (31.5-36.5); Mean Corpuscular Volume 86 fL (80-100); NEUTROPHILS ABSOLUTE AUTO 4.60 K/mm3 (1.96-9.15); NEUTROPHILS PERCENT AUTO 52 % (41-73); NRBC ABSOLUTE 0.00 K/mm3 (0.00-0.02); NRBC Auto 0.0 /100 WBC (0.0-0.2); Platelet Count 353 K/mm3 (150-400); RDW Coefficient Variation 16.4 % (11.7-14.2); RDW Standard Deviation 51.7 fL (35.1-46.3)
[2025-05-07 06:05] LABS: Anion Gap 7.0 mmol/L (3-11); Blood Urea Nitrogen 17.0 mg/dL (8-24); CO2, Blood 34.0 mmol/L (21-32); Calcium, Blood 9.3 mg/dL (8.5-10.1); Chloride, Blood 99.0 mmol/L (98-108); Creatinine, Blood 0.54 mg/dL (0.40-1.00); Glucose, Blood 119.0 mg/dL (70-99); Potassium, Blood 3.6 mmol/L (3.5-5.5); Sodium, Blood 136.0 mmol/L (136-145)
--- NOTE | 2025-05-07 07:06 | NUR ---
Shift Summary Pt actually got to sleep more tonight and pain symptoms improved with round the clock mirapex + norco. Still c/o bilateral hand pain r/t chronic rheumatoid arthritis. Purewick in place. Still coughing, but also much improved. Woke up once to sit at the side of the bed, otherwise no acute changes.
[2025-05-07 07:10] VITALS: BP 153/88
[2025-05-07 11:12] VITALS: BP 152/85
--- NOTE | 2025-05-07 14:46 | NUR ---
NOTE DID WOUND CARE ON R LEG ORDERED WITH NEW MEPILEX IN PLACE. THIGH HIGH CASTRO HOSE ON PT LEG PER DR. MCINTOSH REQUEST.
[2025-05-07 16:03] VITALS: BP 140/78
--- NOTE | 2025-05-07 19:29 | NUR ---
SHIFT SUMMARY PT A&OX4. PT REPORTS PAIN, PAIN MANAGED PER EMAR. PT HAS L AKA, PT SITS ON SIDE OF BED. PT HAS CASTRO HOSE ON. VSS. PT WOUND DRESSING CHANGED PER ORDER ON R MONRO[place]. PT Q2 TURNED. PT HAS ATTENDS IN PLACE, PERRIANACK, CONT. CHANGED PRN. PT EATS ADEQUATE. PT REPORTS IMPROVEMENT IN LEG SWELLING. PT IN BED, BED IN LOWEST POSITION, CALL LIGHT IN REACH, PT ON TELE, NO TELE REPORTS. PT REPORTS IMPROVED COUGH.
[2025-05-07 19:55] VITALS: BP 150/73
[2025-05-07 23:45] VITALS: BP 144/76
[2025-05-08 03:03] VITALS: BP 150/79
--- NOTE | 2025-05-08 04:37 | NUR ---
Shift Summary AOx4. Pleasant. Pain management is good with q4h of norco and mirapex as evidence by decreased pain rating. Moaning, grimacing, and holding on and/or shaking off affected areas has been seen less as well. Patient endorses chronically poor sleep hygiene d/t pain. She did share with this RN that recently, due to insurance related issues, she lost her Technical Support Analyst, the only one so far who had been able to manage her pain to a tolerable level. Tele: ST [id number].
[2025-05-08] MEDS ORDERED: Atarax10 MG PO (06:42)
[2025-05-08 07:18] VITALS: BP 157/85
--- NOTE | 2025-05-08 08:13 | NUR ---
pt resting in bed awake, a/ox4, pleasant and cooperative with care, follows commands well, reports pain, states her knee is hurting on the right side which has a aka, too early for afsaneh, she wanted the mirapex, lungs are clear in upper ol[place], dim in bases, resp even and unlabored, no cough noted, on r/a, hrr,tele in place running sr in 80's per monitor, see strip, no edema to trace edema noted to r foot, ppp faint, cap refill<3 sec, vs stable, afebrile, piv to lac site is clear and patent, but is a bit resistant to flush, btx4, last bm yesterday, voids via purwick at this time, urine is yellow, skin has wound to rshin, mepilex in place c/d/i, geriatric social worker are slightly weaker on r, states arthritis, states she hasn't really been mobilized since her aka, nola, call light in reach.
--- NOTE | 2025-05-08 10:24 | NUR ---
Pt. was crying in her room when I was passing by, but welcomed my visit when I entered the room. After re-establishing rapport the Pt. verbalized the source ofher emotions was from the frustration of being prepped for discharge only to find out that she could not discharge because her condtion wwasn't clear. Listen with emapthy and a calming spirit. Because of the Pts. known farhan, Pastoral care cand scholarship counselor are given. Pt. displayed evidence of regaining some spiritual perspective, and verbalized agreement. Prayed with the Pt. Pt. verbalized gratitude for the spiritual care visit.
[2025-05-08 11:11] VITALS: BP 138/90
[2025-05-08] MEDS ORDERED: HYDROcodone 5-APAP 325 TAB PO PRN (12:30)
[2025-05-08 14:56] VITALS: BP 148/92
--- NOTE | 2025-05-08 18:29 | NUR ---
Lot of family in to visit, pt was able to nap for a few hrs, has been painful, but doing better this evening. no further changes this shift. call light in reach.
[2025-05-08 19:18] VITALS: BP 146/99
[2025-05-09] VITALS (7 sets, daily range): BP systolic 100–173; BP diastolic 63–92
[2025-05-09 06:30] LABS: BASOPHILS ABSOLUTE AUTO 0.06 K/mm3 (0.00-0.23); BASOPHILS PERCENT AUTO 1 % (0-2); EOSINOPHILS ABSOLUTE AUTO 0.85 K/mm3 (0.00-0.68); EOSINOPHILS PERCENT AUTO 10 % (0-6); Hematocrit 36.3 % (33.0-51.0); Hemoglobin 10.9 g/dL (11.5-16.0); IMMATURE GRAN ABSOLUTE AUTO 0.04 K/mm3 (0.00-0.10); IMMATURE GRAN PERCENT AUTO 1 % (0-1); LYMPHOCYTES ABSOLUTE AUTO 2.33 K/mm3 (0.84-5.20); LYMPHOCYTES PERCENT AUTO 27 % (21-46); MONOCYTES ABSOLUTE AUTO 1.22 K/mm3 (0.16-1.47); MONOCYTES PERCENT AUTO 14 % (4-13); Mean Corpuscular HGB Conc 30.0 g/dL (31.5-36.5); Mean Corpuscular Volume 86 fL (80-100); NEUTROPHILS ABSOLUTE AUTO 4.25 K/mm3 (1.96-9.15); NEUTROPHILS PERCENT AUTO 49 % (41-73); NRBC ABSOLUTE 0.00 K/mm3 (0.00-0.02); NRBC Auto 0.0 /100 WBC (0.0-0.2); Platelet Count 295 K/mm3 (150-400); RDW Coefficient Variation 16.5 % (11.7-14.2); RDW Standard Deviation 52.0 fL (35.1-46.3)
[2025-05-09 07:03] LABS: Anion Gap 6.0 mmol/L (3-11); Blood Urea Nitrogen 19.0 mg/dL (8-24); CO2, Blood 34.0 mmol/L (21-32); Calcium, Blood 9.5 mg/dL (8.5-10.1); Chloride, Blood 98.0 mmol/L (98-108); Creatinine, Blood 0.48 mg/dL (0.40-1.00); Glucose, Blood 113.0 mg/dL (70-99); Potassium, Blood 3.4 mmol/L (3.5-5.5); Sodium, Blood 135.0 mmol/L (136-145)
--- NOTE | 2025-05-09 16:32 | NUR ---
Pt. is sitting up on the side of her bed when she welcomes my visit. Pt. is delightfully pleasant. Facilitated an update and the Pt. verbalized an expectation of being discharged tomorrow. Pt. also verbalized that she had been visited by her Clarification Operator. Considered matters of farhan and belief. Pt. displayes evidence of becoming more confident and hopeful as a Pt. Prayed with the Pt. After prayer, family members arrive. Pt. verbalizes gratitude for the spiritual care visit.
--- NOTE | 2025-05-09 17:08 | NUR ---
SHIFT SUMMARY PT AOX4, COOPERATIVE, ABLE TO MAKE NEEDS KNOWN. PT HAS BEEN MOSTLY BEDREST TODAY EXCEPT FOR WORKING WITH THERAPY. PURE WICK IN PLACE. TOLERATING MEDICATION. EXPRESSES PAIN, MEDICATING PER EMAR.ON ROOM AIR, RUNNIN TELE. BED IN LOWEST POSITION, CALL LIGHT WITHIN REACH.
[2025-05-10 02:59] VITALS: BP 141/62
--- NOTE | 2025-05-10 03:56 | NUR ---
PT ALERT AND ORIENTED DURING SHIFT. PATIENT ON ROOM AIR. IV ANTIBIOTICS GIVEN. PATIENT COMPLAINED OF ITCHINESS WITH NO RELIEF FROM ATARAX. ONE TIME DOSE OF BENDRYL GIVEN. PUREWICK IN PLACE. PATIENT ABLE TO USE CALL LIGHT APPROPRIATELY. BED IN LOW POSITION WITH WHEELS LOCKED. CALL LIGHT WITHIN REACH.
[2025-05-10] MEDS ORDERED: Eucerin Unscented Lotion 240 ml TOP PRN (04:40)
[2025-05-10 05:57] LABS: BASOPHILS ABSOLUTE AUTO 0.06 K/mm3 (0.00-0.23); BASOPHILS PERCENT AUTO 1 % (0-2); EOSINOPHILS ABSOLUTE AUTO 0.69 K/mm3 (0.00-0.68); EOSINOPHILS PERCENT AUTO 10 % (0-6); Hematocrit 35.2 % (33.0-51.0); Hemoglobin 10.4 g/dL (11.5-16.0); IMMATURE GRAN ABSOLUTE AUTO 0.02 K/mm3 (0.00-0.10); IMMATURE GRAN PERCENT AUTO 0 % (0-1); LYMPHOCYTES ABSOLUTE AUTO 2.09 K/mm3 (0.84-5.20); LYMPHOCYTES PERCENT AUTO 29 % (21-46); MONOCYTES ABSOLUTE AUTO 0.88 K/mm3 (0.16-1.47); MONOCYTES PERCENT AUTO 12 % (4-13); Mean Corpuscular HGB Conc 29.5 g/dL (31.5-36.5); Mean Corpuscular Volume 87 fL (80-100); NEUTROPHILS ABSOLUTE AUTO 3.40 K/mm3 (1.96-9.15); NEUTROPHILS PERCENT AUTO 48 % (41-73); NRBC ABSOLUTE 0.00 K/mm3 (0.00-0.02); NRBC Auto 0.0 /100 WBC (0.0-0.2); Platelet Count 341 K/mm3 (150-400); RDW Coefficient Variation 16.1 % (11.7-14.2); RDW Standard Deviation 51.8 fL (35.1-46.3)
[2025-05-10 06:17] LABS: Anion Gap 7.0 mmol/L (3-11); Blood Urea Nitrogen 26.0 mg/dL (8-24); CO2, Blood 35.0 mmol/L (21-32); Calcium, Blood 9.6 mg/dL (8.5-10.1); Chloride, Blood 98.0 mmol/L (98-108); Creatinine, Blood 0.66 mg/dL (0.40-1.00); Glucose, Blood 124.0 mg/dL (70-99); Potassium, Blood 3.5 mmol/L (3.5-5.5); Sodium, Blood 136.0 mmol/L (136-145)
[2025-05-10 08:25] VITALS: BP 145/88
[2025-05-10 10:36] VITALS: BP 98/85
[2025-05-10] MEDS ORDERED: Cefadroxil500 MG PO (10:55)
--- NOTE | 2025-05-10 13:28 | NUR ---
DISCHARGE NOTE- PT WAS GIVEN VERBAL AND WRITTEN DISCHARGE INSTRUCTIONS AND ACKNOWLEDGED UNDERSTANDING OF THEM. IV AND TELE DC'D PRIOR TO DISCHARGE. PT WAS TRANSFERED VIA ROSA M LIFT INTO HER POWER CHAIR AND ESCORTED OUT BY THE CATHODIC PROTECTION TECHNICIAN WITH FAMILY PRESENT.
== END 2025-05-10 12:30 | disposition home health service (06) | DRG 308 ==
LOC: ER 11:11 → MEDS 11:12 → PCU 11:12 → MEDS 05-05 15:02
PROVIDERS: Emergency Medicine; Internal Medicine; ADMIT Family Medicine
PROC: 5A09357 Assistance with Respiratory Ventilation, Less than 24 Consecutive Hours, Continuous Positive Airway Pressure (ICD-10-PCS; principal; 2025-05-02)
PROC: 3E03329 Introduction of Other Anti-infective into Peripheral Vein, Percutaneous Approach (ICD-10-PCS; 2025-05-02)
DX: I48.0 Paroxysmal atrial fibrillation (principal); A41.9 Sepsis, unspecified organism; G92.8 Other toxic encephalopathy; G93.41 Metabolic encephalopathy; L03.115 Cellulitis of right lower limb; N39.0 Urinary tract infection, site not specified; D84.9 Immunodeficiency, unspecified; E87.1 Hypo-osmolality and hyponatremia; L97.819 Non-pressure chronic ulcer of other part of right lower leg with unspecified severity; Z66 Do not resuscitate; I25.10 Atherosclerotic heart disease of native coronary artery without angina pectoris; I10 Essential (primary) hypertension; G47.33 Obstructive sleep apnea (adult) (pediatric); I27.20 Pulmonary hypertension, unspecified; M06.9 Rheumatoid arthritis, unspecified; M17.11 Unilateral primary osteoarthritis, right knee; B96.5 Pseudomonas (aeruginosa) (mallei) (pseudomallei) as the cause of diseases classified elsewhere; D64.9 Anemia, unspecified; E78.5 Hyperlipidemia, unspecified; I73.9 Peripheral vascular disease, unspecified; G89.4 Chronic pain syndrome; K58.9 Irritable bowel syndrome, unspecified; F41.9 Anxiety disorder, unspecified; F32.A Depression, unspecified; G25.81 Restless legs syndrome; M79.7 Fibromyalgia; K21.9 Gastro-esophageal reflux disease without esophagitis; M35.00 Sjogren syndrome, unspecified; E87.6 Hypokalemia; Z89.612 Acquired absence of left leg above knee; Z79.01 Long term (current) use of anticoagulants; Z98.1 Arthrodesis status; Z88.1 Allergy status to other antibiotic agents; Z88.8 Allergy status to other drugs, medicaments and biological substances; Z88.0 Allergy status to penicillin; Z79.620 Long term (current) use of immunosuppressive biologic; Z79.891 Long term (current) use of opiate analgesic
CPT/HCPCS: 36415; 70450; 74177; 80048; 80053; 80202; 81001; 83605; 83690; 83735; 84484; 85025; 85651; 86140; 87040; 87077; 87086; 87186; 93005; 93010; 93306; 93971; 94760; 96361; 96365-59; 97110; 97162; 97165; 97530; 97535; 99285-25; A9270; G0378; J0692; J0696; J1171; J3010; J3373; J7040; J7050; J7120; Q9967

== ENCOUNTER → 2025-06-02 | Outpatient (CLI) | payer OTHER ==
[~2025-06-02] MED LIST changes: +Atarax10 MG PO; +DUPIXENT300 MG/21 SC; +ELIQUIS5 M2 PO; +Keflex250 MG PO; +NARCAN4 M1; +NYAMYC15 G1 TOP; +SENNA LAXATIVE8.6 MG PO
[2025-06-02 14:27] LABS: Ferritin, Serum 75.0 ng/mL (8-252); Total Iron Binding Capacity 394.0 ug/dL (250-450)
== END ==
LOC: LAB SHORT 12:26 → LAB 12:26
PROVIDERS: Physician Assistant
DX: E61.1 Iron deficiency (principal)
CPT/HCPCS: 82728; 83540; 83550